=== PATIENT | female | born 1995 | race Caucasian/White ===

== ENCOUNTER 2016-08-14 19:15 | Emergency (ER) | payer OTHER ==
[~2016-08-14 19:15] MED LIST: ALBU17IN INH; AMBI10TA PO; AMBI5TAB PO; AMIT10TA PO; BENA25CA2 PO; GABA300C3 PO; GABA600T PO; HYDR-4274 PO; MINI1CAP PO; NEUR300C PO; PRAZ2CAP PO; PROZ20CA11 PO; ROZE8TAB9 PO; TRAM50TA2 PO; TRI-TAB16 PO; TYLE167L PO; VENL75CA47 PO; VIST25CA PO; VITMTA PO; ZANA4TAB PO
[2016-08-14] MEDS ORDERED: ONDANSETRON 4 MG ORAL DISINTEGRATING TAB (S0181) As Ordered ONE ×2 (22:00→22:04)
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
--- NOTE | 2016-08-14 22:52 | EDDOCDS ---
Physician Documentation [facility] Name: Leticia Polo Age: 20 yrs Sex: Female : 1995 Arrival Date: 08/14/2016 Time: 19:15 Bed 31 Private MD: Srinivas, Family Disposition: 08/14/16 20:14 Discharged to Home/Self Care. Impression: Encounter for issue of repeat prescription, Acute stress reaction. - Condition is Stable. - Discharge Instructions: Medicine Refill at the Emergency Department. - Prescriptions for Effexor XR 75 mg Oral capsule,extended release 24hr - take 3 capsule by ORAL route once daily; 90 capsule. - Medication Reconciliation, Local Pharmacy Hours form. - Follow up: Private Physician; When: Call to arrange an appointment; Reason: Continuance of care. - Problem is an acute exacerbation. - Symptoms have improved. Historical: - Allergies: Haldolmuscle spasms; - Home Meds: 1. Ambien 10 mg Oral tab 1 tab nightly 2. Atarax 25mg Oral 50 mg every 4 hours prn (Last dose: 08/13/2016 20:25) 3. gabapentin 600 mg Oral tab 1 tab 3 times per day (Last dose: 08/14/2016 08:30) 4. clonidine HCl 0.2 mg Oral tab 1 tab once daily (Last dose: 08/13/2016 20:30) 5. tramadol 50 mg Oral tab 1 tab twice a day (Last dose: 08/13/2016 08:00) 6. venlafaxine 225 mg oral tr24 1 tab once daily (Last dose: 08/14/2016 08:30) 7. cyclobenzaprine 10 mg Oral tab 1 tab 3 times per day (Last dose: 08/14/2016 08:00) - PMHx: Anxiety Disorder; Chronic Neck Pain; PTSD; Insomnia; - PSHx: none; - Social history: Smoking status: Patient uses tobacco products, current every day smoker. No barriers to communication noted, The patient speaks fluent Vincentian, Speaks appropriately for age, Preferred Language: Vincentian. - Family history: Not pertinent. - : The pt / caregiver states he / she is not on anticoagulants. Home medication list is obtained from the patient. - Exposure Risk Screening:: None identified. 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 11 in. (149.86 cm) (R); 21:24 BP 150 / 70; Pulse 108; Resp 18; Pulse Ox 99% on R/A; slm 19:17 Body Mass Index 25.25 (56.70 kg, 149.86 cm) dd6 MDM: 20:08 Consult: Automotive Glass Mechanic ordered. mm11 20:15 Vital Signs ordered. mm11 20:51 Consult: Automotive Glass Mechanic complete. [facility] 21:58 Ondansetron ODT Oral Disintegrating Tablet 4 mg PO once ordered. 11 22:17 Financial registration complete. zo Administered Medications: 22:13 Drug: Ondansetron ODT 4 mg [ondansetron 4 mg disintegrating tablet (1 tabs)] Route: PO; [facility] 22:44 Follow up: Response: Nausea is resolved [facility] Signatures: Hung Berkowitz Lisa,RN RN lf1 Adonis Suarez DO DO mm11 Marita Andrade LPN LPN [facility]
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
--- NOTE | 2016-08-16 23:52 | EDDOCDS ---
Physician Documentation [facility] Name: Leticia Polo Age: 20 yrs Sex: Female : 1995 Arrival Date: 08/14/2016 Time: 19:15 Bed 31 Private MD: Srinivas, Family Disposition: 08/14/16 20:14 Discharged to Home/Self Care. Impression: Encounter for issue of repeat prescription, Acute stress reaction. - Condition is Stable. - Discharge Instructions: Medicine Refill at the Emergency Department. - Prescriptions for Effexor XR 75 mg Oral capsule,extended release 24hr - take 3 capsule by ORAL route once daily; 90 capsule. - Medication Reconciliation, Local Pharmacy Hours form. - Follow up: Private Physician; When: Call to arrange an appointment; Reason: Continuance of care. - Problem is an acute exacerbation. - Symptoms have improved. Historical: - Allergies: Haldolmuscle spasms; - Home Meds: 1. Ambien 10 mg Oral tab 1 tab nightly 2. Atarax 25mg Oral 50 mg every 4 hours prn (Last dose: 08/13/2016 20:25) 3. gabapentin 600 mg Oral tab 1 tab 3 times per day (Last dose: 08/14/2016 08:30) 4. clonidine HCl 0.2 mg Oral tab 1 tab once daily (Last dose: 08/13/2016 20:30) 5. tramadol 50 mg Oral tab 1 tab twice a day (Last dose: 08/13/2016 08:00) 6. venlafaxine 225 mg oral tr24 1 tab once daily (Last dose: 08/14/2016 08:30) 7. cyclobenzaprine 10 mg Oral tab 1 tab 3 times per day (Last dose: 08/14/2016 08:00) - PMHx: Anxiety Disorder; Chronic Neck Pain; PTSD; Insomnia; - PSHx: none; - Social history: Smoking status: Patient uses tobacco products, current every day smoker. No barriers to communication noted, The patient speaks fluent Honduran, Speaks appropriately for age, Preferred Language: Honduran. - Family history: Not pertinent. - : The pt / caregiver states he / she is not on anticoagulants. Home medication list is obtained from the patient. - Exposure Risk Screening:: None identified. 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 11 in. (149.86 cm) (R); 21:24 BP 150 / 70; Pulse 108; Resp 18; Pulse Ox 99% on R/A; slm 19:17 Body Mass Index 25.25 (56.70 kg, 149.86 cm) dd6 MDM: 20:08 Consult: Passenger Interline Clerk ordered. mm11 20:15 Vital Signs ordered. mm11 20:51 Consult: Passenger Interline Clerk complete. slm 21:58 Ondansetron ODT Oral Disintegrating Tablet 4 mg PO once ordered. mm11 22:17 Financial registration complete. zo 23:08 [facility] Payment Agreement was scanned into [employer] and attached to record. zo 08/15 03:54 T-Sheet-- Draft Copy was scanned into [employer] and attached to record. hs2 11:31 Other: DRUG UTILIZATION REPORT was scanned into [employer] and attached to record. gb Administered Medications: 08/14 22:13 Drug: Ondansetron ODT 4 mg [ondansetron 4 mg disintegrating tablet (1 tabs)] Route: PO; [facility] 22:44 Follow up: Response: Nausea is resolved [facility] Signatures: Kasey Ray, Reg Reg gb Hung Berkowitz Lisa, RN RN lf1 Adonis Suarez DO DO mm11 Marita Andrade LPN LPN [facility] Jennifer Teague, Reg Reg hs2 The chart was reviewed and I authenticate all verbal orders and agree with the evaluation and treatment provided.Attachments: 23:08 [facility] Payment Agreement zo 08/15 03:54 T-Sheet-- Draft Copy hs2 Chart Complete MTDD
--- NOTE | 2016-08-16 23:52 | EDDOCDS ---
Physician Documentation [facility] Name: Leticia Polo Age: 20 yrs Sex: Female : 1995 Arrival Date: 08/14/2016 Time: 19:15 Bed 31 Private MD: Srinivas, Family Disposition: 08/14/16 20:14 Discharged to Home/Self Care. Impression: Encounter for issue of repeat prescription, Acute stress reaction. - Condition is Stable. - Discharge Instructions: Medicine Refill at the Emergency Department. - Prescriptions for Effexor XR 75 mg Oral capsule,extended release 24hr - take 3 capsule by ORAL route once daily; 90 capsule. - Medication Reconciliation, Local Pharmacy Hours form. - Follow up: Private Physician; When: Call to arrange an appointment; Reason: Continuance of care. - Problem is an acute exacerbation. - Symptoms have improved. Historical: - Allergies: Haldolmuscle spasms; - Home Meds: 1. Ambien 10 mg Oral tab 1 tab nightly 2. Atarax 25mg Oral 50 mg every 4 hours prn (Last dose: 08/13/2016 20:25) 3. gabapentin 600 mg Oral tab 1 tab 3 times per day (Last dose: 08/14/2016 08:30) 4. clonidine HCl 0.2 mg Oral tab 1 tab once daily (Last dose: 08/13/2016 20:30) 5. tramadol 50 mg Oral tab 1 tab twice a day (Last dose: 08/13/2016 08:00) 6. venlafaxine 225 mg oral tr24 1 tab once daily (Last dose: 08/14/2016 08:30) 7. cyclobenzaprine 10 mg Oral tab 1 tab 3 times per day (Last dose: 08/14/2016 08:00) - PMHx: Anxiety Disorder; Chronic Neck Pain; PTSD; Insomnia; - PSHx: none; - Social history: Smoking status: Patient uses tobacco products, current every day smoker. No barriers to communication noted, The patient speaks fluent Canadian, Speaks appropriately for age, Preferred Language: Canadian. - Family history: Not pertinent. - : The pt / caregiver states he / she is not on anticoagulants. Home medication list is obtained from the patient. - Exposure Risk Screening:: None identified. BAKER PIE: 08/14 19:44 0, Living 0, LMP 06/10/2016 lf1 Vital Signs: 19:17 BP 161 / 91; Pulse 146; Resp 18 S; Temp 97.7(O); Pulse Ox 97% on R/A; Weight 56.7 kg / dd6 125 lbs (R); Height 4 ft. 11 in. (149.86 cm) (R); 21:24 BP 150 / 70; Pulse 108; Resp 18; Pulse Ox 99% on R/A; slm 19:17 Body Mass Index 25.25 (56.70 kg, 149.86 cm) dd6 MDM: 20:08 Consult: Doctor Of Podiatry ordered. mm11 20:15 Vital Signs ordered. mm11 20:51 Consult: Doctor Of Podiatry complete. slm 21:58 Ondansetron ODT Oral Disintegrating Tablet 4 mg PO once ordered. mm11 22:17 Financial registration complete. zo 23:08 [facility] Payment Agreement was scanned into [employer] and attached to record. zo 08/15 03:54 T-Sheet-- Draft Copy was scanned into [employer] and attached to record. hs2 11:31 Other: DRUG UTILIZATION REPORT was scanned into [employer] and attached to record. gb Administered Medications: 08/14 22:13 Drug: Ondansetron ODT 4 mg [ondansetron 4 mg disintegrating tablet (1 tabs)] Route: PO; [facility] 22:44 Follow up: Response: Nausea is resolved [facility] Signatures: Kasey Ray, Reg Reg gb Hung Berkowitz Lisa, RN RN lf1 Adonis Suarez DO DO mm11 Marita Andrade LPN LPN [facility] Jennifer Teague, Reg Reg hs2 The chart was reviewed and I authenticate all verbal orders and agree with the evaluation and treatment provided.Attachments: 23:08 [facility] Payment Agreement zo 08/15 03:54 T-Sheet-- Draft Copy hs2 Chart Complete MTDD
== END 2016-08-14 22:50 | disposition home or self-care (01) ==
LOC: M ED 19:15
DX: Z76.0 Encounter for issue of repeat prescription (principal); F43.0 Acute stress reaction; F41.9 Anxiety disorder, unspecified; M54.2 Cervicalgia; F43.10 Post-traumatic stress disorder, unspecified; G47.00 Insomnia, unspecified; F17.210 Nicotine dependence, cigarettes, uncomplicated; Z79.899 Other long term (current) drug therapy; Z88.8 Allergy status to other drugs, medicaments and biological substances

== ENCOUNTER → 2016-09-15 | Outpatient (CLI) | payer OTHER ==
--- NOTE | 2016-09-15 10:33 | REP ---
MRI CERVICAL SPINE WITHOUT CONTRAST: HISTORY: Neck pain. A disc bulge is present at the C5-6 level. There is minimal effacement of the thecal sac without spinal cord compression. The C5 neural foramina are patent. There is no other disc bulge or herniation. The remaining neural foramina are patent. The spinal cord is normal in signal intensity. There is no intradural extramedullary lesion. Normal signal intensity is present in the cervical vertebral bodies. IMPRESSION: Disc bulge at the C5-6 level without spinal cord compression. Signed by Ezio Red MD 09/15/2016 10:50 A
== END ==
LOC: M RAD 08:48
PROVIDERS: ATTEND Family Medicine
DX: M50.222 Other cervical disc displacement at C5-C6 level (principal)

== ENCOUNTER 2016-09-22 16:51 | Emergency (ER) | payer OTHER ==
[~2016-09-22] VITALS: Ht 147.3 cm; Wt 56.7 kg
[2016-09-22 18:38] LABS: BASO % 0.2 % (0.0-1.0); EOS # 0.1 K/mm3 (0.0-0.50); EOS % 0.7 % (0.0-3.0); LARGE UNSTAINED CELL # 0.1 K/mm3 (0.0-0.4); LYMPH # 1.2 K/mm3 (1.5-6.5); LYMPH % 9.1 % (24.0-44.0); MEAN CORPUSCULAR HEMOGLOBIN 29.2 pg (27.0-33.0); MEAN CORPUSCULAR VOLUME 83.4 fl (80.0-96.0); MONO # 0.6 K/mm3 (0.0-0.8); MONO % 4.2 % (0.0-5.0); NEUTROPHILS # 11.2 K/mm3 (1.8-7.7); NEUTROPHILS % 84.8 % (36.0-66.0); PLATELET COUNT, AUTOMATED 245 k/mm3 (150-450); RED CELL DISTRIBUTION WIDTH 12.2 % (11.5-14.5); WHITE BLOOD COUNT 13.2 K/mm3 (4.0-10.0)
[2016-09-22 19:00] LABS: ERYTHROCYTE SEDIMENTATION RATE 10 mm/hr (0-20)
[2016-09-22 19:20] LABS: ALBUMIN 3.9 GM/DL (3.2-5.2); ALBUMIN/GLOBULIN RATIO 1.22 (1.00-1.93); ALKALINE PHOSPHATASE 87 U/L (45-117); ALT/SGPT 17 U/L (12-78); ANION GAP 9 MEQ/L (8-16); AST/SGOT 15 U/L (15-37); BILIRUBIN,DIRECT 0.1 MG/DL (0.0-0.2); BILIRUBIN,TOTAL 0.3 MG/DL (0.2-1.0); BLOOD UREA NITROGEN 7 MG/DL (7-18); CALCIUM LEVEL 8.9 MG/DL (8.5-10.1); CARBON DIOXIDE LEVEL 25 MEQ/L (21-32); CHLORIDE LEVEL 106 MEQ/L (98-107); CREATININE FOR GFR 0.65 MG/DL (0.55-1.02); GLOMERULAR FILTRATION RATE > 60.0 (>60); GLUCOSE, FASTING 98 MG/DL (70-105); POTASSIUM SERUM 3.8 MEQ/L (3.5-5.1); SODIUM LEVEL 140 MEQ/L (136-145); TOTAL PROTEIN 7.1 GM/DL (6.4-8.2)
[2016-09-22 22:34] LABS: AMPHETAMINES LEVEL URINE NEGATIVE (NEGATIVE); BENZODIAZEPINES URINE NEGATIVE (NEGATIVE); COCAINE METABOLITE URINE NEGATIVE (NEGATIVE); CONTROL LINE INT CTR LINE PRESENT; METHADONE URINE NEGATIVE (NEGATIVE); OPIATES URINE NEGATIVE (NEGATIVE); TRICYCLIC ANTIDEPRESS URINE POSITIVE (NEGATIVE)
[2016-09-22] MEDS ORDERED: VENL75TA3 PO (22:45)
[2016-09-22] MEDS ORDERED: CLON0.2T PO (22:48)
[2016-09-22] MEDS ORDERED: TYLE500T78 PO (22:48)
[2016-09-22] MEDS ORDERED: HYDR-4274 PO (22:48)
[2016-09-23] MEDS ORDERED: LORazepam 2 MG/ML VIAL (J2060) As Ordered ONE ×2 (01:10→01:47)
--- NOTE | 2016-09-23 03:10 | REPUSA ---
CLINICAL HISTORY: Evaluate for multiple sclerosis. TECHNIQUE: Fast spin echo T2 and spin echo T1 sequences were obtained in axial and sagittal planes. P lease note that T2 sagittal sequence is motion degraded. The visualized osseous elements are intact with no evidence of fracture or dislocation. The cervical cord is of normal uniform signal intensity without evidence of focal expansion. There is no evidence for tonsillar herniation. Limited views of the posterior fossa reveal no abnormalities. Normal cervic al lordosis is maintained. Multilevel disk dehydration is seen. Mild loss of disk space heights is noted at C4-C5 and C5-C6. At C4-C5, note is made of minimal diffuse disc bulge without significant spinal canal or foraminal st enosis. At C5-C6, note is made of moderate broad-based disc bulge. Posterior osteophyte formation. Mild narro wing of the spinal canal. Mild bilateral neural foramina narrowing. Remaining levels are intact. IMPRESSION: Normal signal of the visualized spinal cord. Spondylosis. Thank you for your kind referral of this patient.
--- NOTE | 2016-09-23 03:20 | REPUSA ---
CLINICAL HISTORY: Suspected multiple sclerosis. TECHNIQUE: Fast spin echo T2 and spin echo T1 sequences were obtained in axial and sagittal planes. FINDINGS: The visualized osseous elements are intact and in normal alignment with no evidence of fracture or di slocation. The marrow signals are within normal limits. The visualized posterior elements are normal and the thoracic curvature is well maintained. The thoracic cord is of uniform signal intensity witho ut evidence of focal expansion. 1.4 cm uncomplicated hemangioma of T8. There is mild multilevel spondylosis. This is demonstrated by disc dehydration. Small anterior osteop hytes are seen. At T1-T2 level, no evidence of significant disk herniation or bulge. Canal and foramina are patent. At T2-T3 level, no evidence of significant disk herniation or bulge. Canal and foramina are patent. At T3-T4 level, no evidence of significant disk herniation or bulge. Canal and foramina are patent. At T4-T5 level, no evidence of significant disk herniation or bulge. Canal and foramina are patent. At T5-T6 level, no evidence of significant disk herniation or bulge. Canal and foramina are patent. At T6-T7 level, no evidence of significant disk herniation or bulge. Canal and foramina are patent. At T7-T8 level, left paracentral broad-based central disc protrusion. Canal and foramina are patent. At T8-T9 level, no evidence of significant disk herniation or bulge. Canal and foramina are patent. At T9-T10 level, no evidence of significant disk herniation or bulge. Canal and foramina are patent. At T10-T11 level, no evidence of significant disk herniation or bulge. Canal and foramina are patent. At T11-T12 level, no evidence of significant disk herniation or bulge. Canal and foramina are patent. IMPRESSION: 1. Mild multilevel spondylosis. 2. Degenerative disc disease more prominent at T7-T8. 3. Normal signal of the spinal cord. Thank you for your kind referral of this patient.
--- NOTE | 2016-09-23 03:30 | REPUSA ---
CLINICAL HISTORY: Suspected multiple sclerosis. TECHNIQUE: Fast spin echo T2 and spin echo T1 sequences were obtained in axial and sagittal planes. FINDINGS: The visualized osseous elements are intact with no evidence of fracture or spondylolisthesis. The mar row signals are within normal limits. There is preservation of normal lordotic curvature. The conus m edullaris and cauda equina are within normal limits. There is evidence of mild multilevel disc dehydration. Evaluation of individual levels reveals the following: At L5-S1, there is no disk herniation or bulge. Canal and neural foramina remain patent. At L4-L5, there is no disk herniation or bulge. Canal and neural foramina remain patent. At L3-L4, there is no disk herniation or bulge. Canal and neural foramina remain patent. At L2-L3, there is no disk herniation or bulge. Canal and neural foramina remain patent. At L1-L2, there is no disk herniation or bulge. Canal and neural foramina remain patent. IMPRESSION: Unremarkable study. Thank you for your kind referral of this patient.
--- NOTE | 2016-09-23 04:23 | EDDOCDS ---
Physician Documentation [facility] Name: Leticia Polo Age: 21 yrs Sex: Female : 1995 Arrival Date: 09/22/2016 Time: 16:51 Bed 13 Private MD: Tushar De M. Disposition: 09/23/16 04:06 Discharged to Home/Self Care. Impression: Conversion disorder with motor symptom or deficit. - Condition is Stable. - Discharge Instructions: Conversion Disorder. - Medication Reconciliation, Local Pharmacy Hours form. - Follow up: Private Physician; When: As previously arranged; Reason: Continuance of care. Follow up: Emergency Department; When: As needed; Reason: Continuance of care. - Problem is an acute exacerbation. - Symptoms are resolved. - Notes: YOUR SYMPTOMS RESOLVED WITHOUT INTERVENTION. YOUR SYMPTOMS AND THE PRESENTATION ARE MOST CONSISTANT WITH A CONVERSION DISORDER. FOLLOW UP WITH YOUR OUTPATIENT PROVIDER PREVIOUSLY ARRANGED ON SUNDAY. Historical: - Allergies: Haldolmuscle spasms; SHELLFISH; - Home Meds: 1. Ambien 10 mg Oral tab 1 tab nightly 2. clonidine HCl 0.2 mg Oral tab 1 tab once daily 3. gabapentin 600 mg Oral tab 1 tab 3 times per day 4. tramadol 50 mg Oral tab 1 tab twice a day 5. venlafaxine 250mg oral tr24 1 tab once daily - PMHx: Anxiety Disorder; Chronic Neck Pain; insomnia; PTSD; - PSHx: none; - Social history: Smoking status: Patient states former smoker of tobacco. No barriers to communication noted, The patient speaks fluent Cymro, Speaks appropriately for age. - Family history: Not pertinent. - : The pt / caregiver states he / she is not on anticoagulants. Home medication list is obtained from the patient. - Exposure Risk Screening:: None identified. 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 10 in. (147.32 cm); Pain 7/10; 19:08 BP 147 / 89 (auto/); js15 19:08 Pulse 108 MON; Pulse Ox 99% ; js15 19:37 Pulse 102 MON; Pulse Ox 100% ; js15 19:38 BP 154 / 82 (auto/); js15 20:08 BP 157 / 82 (auto/); js15 20:08 Pulse 118 MON; Pulse Ox 99% ; js15 20:37 Pulse 118 MON; Pulse Ox 100% ; js15 20:38 BP 167 / 85 (auto/); js15 21:07 Pulse 110 MON; Pulse Ox 100% ; js15 21:08 BP 148 / 86 (auto/); js15 21:38 BP 154 / 91 (auto/); js15 21:38 Pulse 102 MON; Pulse Ox 99% ; js15 22:07 Pulse 98 MON; Pulse Ox 100% ; js15 22:08 BP 152 / 86 (auto/); js15 22:37 Pulse 98 MON; Pulse Ox 98% ; js15 22:38 BP 140 / 78 (auto/); js15 23:07 Pulse 96 MON; Pulse Ox 99% ; js15 23:08 BP 149 / 77 (auto/); 15 09/23 02:35 BP 108 / 56 (auto/); js15 02:35 Pulse 90 MON; Pulse Ox 98% ; js15 03:05 BP 114 / 60 (auto/); js15 03:05 Pulse 96 MON; Pulse Ox 98% ; js15 03:34 Pulse 102 MON; Pulse Ox 98% ; js15 03:35 BP 126 / 66 (auto/); js15 04:06 BP 139 / 86 (auto/); Pulse 120; Resp 20; Temp 98.6(TE); Pulse Ox 100% on R/A; Pain 7/10;js15 09/22 17:10 Body Mass Index 26.12 (56.70 kg, 147.32 cm) kc3 MDM: 09/22 17:42 Financial registration complete. zo 17:44 [facility] Payment Agreement was scanned into [employer] and attached to record. zo 18:11 Bladder Scan please ordered. le 18:11 IV Saline Lock ordered. le 18:11 NS 0.9% 1000 ml IV at bolus once ordered. le 18:11 CBC with Diff Ordered. EDMS 18:11 BMP Ordered. EDMS 18:11 ESR Ordered. EDMS 18:11 CRP Ordered. EDMS 18:19 Consult PFS/PSA/Elevator Service Technician ordered. le 18:20 Drug Eval Toxicology ED Only Ordered. EDMS 19:00 ACETAMINOPHEN LEVEL Ordered. EDMS 19:00 ETHYL ALCOHOL (ETHANOL) Ordered. EDMS 19:00 LIVER PROFILE Ordered. EDMS 19:00 SALICYLATE LEVEL Ordered. EDMS 19:00 THYROID STIMULATING HORMONE Ordered. EDMS 19:18 CBC with Diff Reviewed. le 19:18 ESR Reviewed. le 19:39 ACETAMINOPHEN LEVEL Reviewed. le 19:39 SALICYLATE LEVEL Reviewed. le 19:39 BMP Reviewed. le 19:39 CRP Reviewed. le 19:39 ETHYL ALCOHOL (ETHANOL) Reviewed. le 19:39 LIVER PROFILE Reviewed. le 19:39 THYROID STIMULATING HORMONE Reviewed. le 21:41 MRI Screening Tool - Place on chart, inform RN ordered. le 21:43 Bladder Scan please ordered. le 21:43 Straight cath ordered. le 21:43 -MRI-Brain w/o foll by with Ordered. EDMS 22:12 BED REQUEST+ADM ordered. EDMS 22:42 MRI Screening Tool - Place on chart, inform RN complete. ml3 09/23 01:07 LORazepam 1 mg IVP once ordered. mm11 01:40 MRI Spine,Cervical without con Ordered. EDMS 01:40 MRI Spine, L.S. without con Ordered. EDMS 01:40 MRI Spine,Thoracic without con Ordered. EDMS 01:45 LORazepam 1 mg IVP once ordered. mm11 02:09 Drug Eval Toxicology ED Only Reviewed. mm11 Administered Medications: 09/22 18:25 Drug: NS 0.9% 1000 ml [sodium chloride 0.9 % intravenous solution] Route: IV; Rate: kc3 bolus; Site: left antecubital; 22:00 Follow up: IV Status: Completed infusion; IV Intake: 1000ml js15 09/23 01:18 Drug: LORazepam 1 mg [lorazepam 2 mg/mL injection solution (0.5 mL)] Route: IVP; Site: js15 left antecubital; 01:52 Drug: LORazepam 1 mg [lorazepam 2 mg/mL injection solution (0.5 mL)] Route: IVP; Site: js15 left antecubital; 02:15 Follow up: Response: No Adverse Reaction js15 Signatures: Dispatcher [employer] EDMS Vaishali Avila, Computer Bookkeeper Unit ml3 Hung Berkowitz Matthew, DO DO mm11 Nita Dennis FNP Sabiha Harmon,RN RN js15 Sue Bailey,RN RN kc3 The chart was reviewed and I authenticate all verbal orders and agree with the evaluation and treatment provided.Corrections: (The following items were deleted from the chart) 09/22 19:02 18:20 ACETAMINOPHEN LEVEL+LAB ordered. EDMS EDMS 19:02 18:20 ETHYL ALCOHOL (ETHANOL)+LAB ordered. EDMS EDMS 19:02 18:20 LIVER PROFILE+LAB ordered. EDMS EDMS 19:02 18:20 SALICYLATE LEVEL+LAB ordered. EDMS EDMS 19:02 18:20 THYROID STIMULATING HORMONE+LAB ordered. EDMS EDMS 23:36 21:43 MRI-Spine, Thoracic with con+MR ordered. EDMS EDMS 23:37 21:43 MRI-Spine,Thoracic without con+MR ordered. EDMS EDMS 09/23 01:40 09/22 21:43 MRI-Spine, Cervical w/o foll by with+MR ordered. EDMS EDMS 09/23 01:40 09/22 21:43 MRI-Spine, Lumbar w/o foll by with+MR ordered. EDMS EDMS 09/23 01:40 09/22 23:36 MRI T SPINE W/O FOLL WITH CON ordered. EDMS EDMS Attachments: 17:44 [facility] Payment Agreement zo MTDD
--- NOTE | 2016-09-23 04:24 | EDDOCDS ---
Nurse's Notes [facility] Name: Leticia Polo Age: 21 yrs Sex: Female : 1995 Arrival Date: 09/22/2016 Time: 16:51 Bed 13 Private MD: Tushar De M. Diagnosis: Conversion disorder with motor symptom or deficit Presentation: 09/22 17:07 Presenting complaint: EMS states: pt with loss of sensation and weakness to bilateral kc3 lower legs while at work. Adult Sepsis Screening: The patient does not have new or worsening altered mentation. Patient's respiratory rate is less than 22. Systolic blood pressure is greater than 100. Patient has a qSOFA score of 0- Negative Sepsis Screen. Suicide/Homicide risk assessment- the patient denies having any suicidal and/or homicidal ideations and does not present with any other emotional, behavioral or mental health complaints. Transition of care: patient was not received from another setting of care. 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 kc3 Triage Assessment: 17:13 General: Appears in no apparent distress, comfortable, Behavior is appropriate for age, kc3 cooperative. Pain: Location: neck Pain currently is 7 out of 10 on a pain scale. HIV screening NA for this visit Offered previously. The patient is triaged at the bedside. See Assessment in Nurses Notes section of ED record. 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 Cardiovascular: Chest pain is denied. Respiratory: Airway is patent Respiratory effort is even, unlabored. Derm: Skin is pink, warm & dry. Musculoskeletal: Circulation, motion, and sensation intact. CONCRETE PUDDLER: 17:10 LMP 08/08/2016 kc3 Historical: - Allergies: Haldolmuscle spasms; SHELLFISH; - Home Meds: 1. Ambien 10 mg Oral tab 1 tab nightly 2. clonidine HCl 0.2 mg Oral tab 1 tab once daily 3. gabapentin 600 mg Oral tab 1 tab 3 times per day 4. tramadol 50 mg Oral tab 1 tab twice a day 5. venlafaxine 250mg oral tr24 1 tab once daily - PMHx: Anxiety Disorder; Chronic Neck Pain; insomnia; PTSD; - PSHx: none; - Social history: Smoking status: Patient states former smoker of tobacco. No barriers to communication noted, The patient speaks fluent Samoan, Speaks appropriately for age. - Family history: Not pertinent. - : The pt / caregiver states he / she is not on anticoagulants. Home medication list is obtained from the patient. - Exposure Risk Screening:: None identified. Screenin:15 Screening information is obtained from the patient. Fall risk: At risk due to weakness. kc3 The following interventions are performed due to a positive Fall Risk Screen: Fall Risk is added to Special Handling on the patient Summary Screen. A Fall Risk Bracelet was applied to the patient. Side Rails are placed in the up position. A Call Mcdermott is given with instruction to call for help when getting out of bed. Fall Alert bracelet is placed on the patient. Assistance ADL's: requires no assistance with activities of daily living. Abuse/DV Screen: The patient / caregiver reports he/she is: not in a situation that causes fear, pain or injury. Nutritional screening: No deficits noted. home support is adequate. 09/23 04:19 Advance Directives: There is no active DNR order. js15 Assessment: 09/22 17:15 General: See triage note for initial assessment. . kc3 18:25 General: Appears in no apparent distress, comfortable, Behavior is appropriate for age, kc3 cooperative. Pain: Location: neck. Neurological: Level of Consciousness is awake, alert, obeys commands, Oriented to person, place, time, Numbness in left leg and right leg. Respiratory: Respiratory effort is even, unlabored. Derm: Skin is pink, warm & dry. 19:23 General: Appears in no apparent distress, comfortable, Behavior is appropriate for age, js15 cooperative, flat. Pain: Location: neck Pain currently is 7 out of 10 on a pain scale. Quality of pain is described as stabbing, Aggravated by movement. Neurological: Level of Consciousness is awake, alert, obeys commands, Oriented to person, place, time, Speech is normal, Facial symmetry appears normal, Numbness in left leg and right leg. Respiratory: Airway is patent Respiratory effort is even, unlabored, Respiratory pattern is regular, symmetrical. Derm: Skin is intact, Skin is pink, warm & dry. 20:40 General: Appears in no apparent distress, comfortable, Behavior is appropriate for age, js15 cooperative. Neurological: Level of Consciousness is awake, alert, obeys commands, Oriented to person, place, time. Respiratory: Airway is patent Respiratory effort is even, unlabored, Respiratory pattern is regular, symmetrical. Derm: Skin is pink, warm & dry. 21:50 Reassessment: bladder scan performed to find >567 mL; L Sonny OPERATIONS LEAD notified. js15 22:11 Reassessment: straight cath performed and returned 650 mL of cloudy yellow urine; post js15 residual bladder scan shows 0 mL remaining urine in bladder; L Sonny OPERATIONS LEAD notified; will continue to monitor. 23:25 General: Appears in no apparent distress, comfortable, Behavior is appropriate for age, js15 cooperative. Neurological: Level of Consciousness is awake, alert, obeys commands, Oriented to person, place, time. Respiratory: Airway is patent Respiratory effort is even, unlabored, Respiratory pattern is regular, symmetrical. Derm: Skin is pink, warm & dry. 09/23 00:30 Reassessment: Pt in MRI for imaging study. js15 01:21 General: Pt in MRI, this typewriter assembly and parts inspector called to MRI because pt unable to stay still for image js15 study. Arrived in MRI and pt was laying on table, having intermittent, uncorrelated whole body jerking movements. Pt awake and alert, oriented x3 and responding appropriately. respirations even and unlabored; skin pink, warm, dry. medications given per ED physician order.. 01:30 Reassessment: Called to MRI because pt appears to be having difficulty breathing; upon js15 arrival to MRI this typewriter assembly and parts inspector witnessed pt on stretcher awake with eyes open and blinking, making purposeful movements, appears to be having a panic attack with forced rapid exhaling (states has had panic attack in past); O2 sat 100 % RA outside MRI, HR 115 and sinus, airway patent and breath sounds clear. removed from MRI and brought to main ED, hooked up to cardiac/pulse ox/ NIBP monitoring. Pt was able to correct breathing with coaching from nursing staff. resting on stretcher with mother at bedside. ED provider aware. will continue to monitor. 03:00 Reassessment: Patient appears in no apparent distress at this time. Pt appears to be js15 sleeping, mother at bedside; respirations even and unlabored; skin pink, warm, dry; will continue to monitor. 04:00 General: Appears in no apparent distress, comfortable, Behavior is appropriate for age, js15 cooperative. Pain: Location: neck Pain currently is 7 out of 10 on a pain scale. Neurological: Level of Consciousness is awake, alert, obeys commands, Oriented to person, place, time. Cardiovascular: Rhythm is sinus rhythm. Respiratory: Airway is patent Respiratory effort is even, unlabored, Respiratory pattern is regular, symmetrical. Derm: Skin is pink, warm & dry. Vital Signs: 09/22 17:10 BP 142 / 83; Pulse 76; Resp 18; Temp 99.2(O); Pulse Ox 100% on R/A; Weight 56.7 kg; kc3 Height 4 ft. 10 in. (147.32 cm); Pain 7/10; 19:08 BP 147 / 89 (auto/); js15 19:08 Pulse 108 MON; Pulse Ox 99% ; js15 19:37 Pulse 102 MON; Pulse Ox 100% ; js15 19:38 BP 154 / 82 (auto/); js15 20:08 BP 157 / 82 (auto/); js15 20:08 Pulse 118 MON; Pulse Ox 99% ; js15 20:37 Pulse 118 MON; Pulse Ox 100% ; js15 20:38 BP 167 / 85 (auto/); js15 21:07 Pulse 110 MON; Pulse Ox 100% ; js15 21:08 BP 148 / 86 (auto/); js15 21:38 BP 154 / 91 (auto/); js15 21:38 Pulse 102 MON; Pulse Ox 99% ; js15 22:07 Pulse 98 MON; Pulse Ox 100% ; js15 22:08 BP 152 / 86 (auto/); js15 22:37 Pulse 98 MON; Pulse Ox 98% ; js15 22:38 BP 140 / 78 (auto/); js15 23:07 Pulse 96 MON; Pulse Ox 99% ; js15 23:08 BP 149 / 77 (auto/); 15 09/23 02:35 BP 108 / 56 (auto/); 15 02:35 Pulse 90 MON; Pulse Ox 98% ; 15 03:05 BP 114 / 60 (auto/); js15 03:05 Pulse 96 MON; Pulse Ox 98% ; js15 03:34 Pulse 102 MON; Pulse Ox 98% ; js15 03:35 BP 126 / 66 (auto/); js15 04:06 BP 139 / 86 (auto/); Pulse 120; Resp 20; Temp 98.6(TE); Pulse Ox 100% on R/A; Pain 7/10;js15 09/22 17:10 Body Mass Index 26.12 (56.70 kg, 147.32 cm) kc3 Vitals: 09/22 17:10 Log In Time N/A - ambulance arrival. kc3 ED Course: 16:52 Patient visited by Arminda Joyce, Sandwich Peddler. lbd 16:52 Patient moved to Waiting lbd 16:54 Tushar De is Private Physician. lbd 16:54 Sue Bailey RN is Primary Nurse. lbd 16:54 Patient moved to 13 lbd 17:08 Triage Initiated kc3 17:16 The patient / caregiver is instructed regarding the plan of care and ED course. kc3 17:18 [facility] F[facility] le 17:20 Patient visited by Nita Dennis FNP. le 17:20 Patient visited by Nita Dennis FNP. le 17:44 [facility] Payment Agreement was scanned into [employer] and attached to record. zo 17:45 Patient name changed from Leticia\S\\S\Long\S\ to Leticia\S\ \S\Long. EDMS 18:24 Patient visited by Sue Bailey RN. kc3 18:24 CRP Sent. kc3 18:24 ESR Sent. kc3 18:24 BMP Sent. kc3 18:25 CBC with Diff Sent. kc3 18:26 Inserted saline lock: 20 gauge in left antecubital area and blood collected. The kc3 patient tolerated the procedure well. 18:58 Patient visited by Sue Bailey RN. kc3 19:02 THYROID STIMULATING HORMONE Sent. kc3 19:02 SALICYLATE LEVEL Sent. kc3 19:02 LIVER PROFILE Sent. kc3 19:02 ETHYL ALCOHOL (ETHANOL) Sent. kc3 19:02 ACETAMINOPHEN LEVEL Sent. kc3 20:24 Patient visited by Sabiha Baxter,JONATHAN. js15 21:49 Patient visited by Sabiha Baxter,JONATHAN. js15 22:37 Primary Nurse role handed off by Sue Bailey RN kb5 22:51 Patient visited by Sabiha Baxter RN. js15 23:27 Patient visited by Sabiha Baxter RN. js15 23:35 Patient moved to [facility] ml3 23:57 Adonis Suarez DO is Attending Physician. mm11 23:57 Patient visited by Adonis Suarez DO. mm11 18 01:21 Patient visited by Sabiha Baxter RN. js15 01:58 Patient moved to 13 ml3 02:08 Patient visited by Adonis Suarez DO. mm11 03:19 Patient visited by Sabiha Baxter RN. js15 03:44 MRI Spine,Cervical without con Returned. EDMS 03:44 MRI Spine,Thoracic without con Returned. EDMS 03:44 MRI Spine, L.S. without con Returned. EDMS 04:19 Discontinued IV lock intact, bleeding controlled, pressure dressing applied, No js15 redness/swelling at site. No procedures done that require assistance. Administered Medications: 09/22 18:25 Drug: NS 0.9% 1000 ml [sodium chloride 0.9 % intravenous solution] Route: IV; Rate: kc3 bolus; Site: left antecubital; 22:00 Follow up: IV Status: Completed infusion; IV Intake: 1000ml [facility] 09/23 01:18 Drug: LORazepam 1 mg [lorazepam 2 mg/mL injection solution (0.5 mL)] Route: IVP; Site: [facility] left antecubital; 01:52 Drug: LORazepam 1 mg [lorazepam 2 mg/mL injection solution (0.5 mL)] Route: IVP; Site: [facility] left antecubital; 02:15 Follow up: Response: No Adverse Reaction Intake: 09/22 22:00 IV: 1000.00ml; Total: 1000.00ml. 15 Order Results: Lab Order: CBC with Diff; SPEC'M 09/22/16 18:17 Test: WHITE BLOOD COUNT; Value: 13.2; Range: 4.0-10.0; Abnormal: Above high normal; Units: K/mm3; Status: F Test: RED BLOOD COUNT; Value: 4.95; Range: 4.00-5.40; Units: M/mm3; Status: F Test: HEMOGLOBIN; Value: 14.4; Range: 12.0-16.0; Units: g/dl; Status: F Test: HEMATOCRIT; Value: 41.3; Range: 36.0-47.0; Units: %; Status: F Test: MEAN CORPUSCULAR VOLUME; Value: 83.4; Range: 80.0-96.0; Units: fl; Status: F Test: MEAN CORPUSCULAR HEMOGLOBIN; Value: 29.2; Range: 27.0-33.0; Units: pg; Status: F Test: MEAN CORPUSCULAR HGB CONC; Value: 35.0; Range: 32.0-36.5; Units: g/dl; Status: F Test: RED CELL DISTRIBUTION WIDTH; Value: 12.2; Range: 11.5-14.5; Units: %; Status: F Test: PLATELET COUNT, AUTOMATED; Value: 245; Range: 150-450; Units: k/mm3; Status: F Test: NEUTROPHILS %; Value: 84.8; Range: 36.0-66.0; Abnormal: Above high normal; Units: %; Status: F Test: LYMPH %; Value: 9.1; Range: 24.0-44.0; Abnormal: Below low normal; Units: %; Status: F Test: MONO %; Value: 4.2; Range: 0.0-5.0; Units: %; Status: F Test: EOS %; Value: 0.7; Range: 0.0-3.0; Units: %; Status: F Test: BASO %; Value: 0.2; Range: 0.0-1.0; Units: %; Status: F Test: LARGE UNSTAINED CELL %; Value: 1.0; Range: 0.0-4.0; Units: %; Status: F Test: NEUTROPHILS #; Value: 11.2; Range: 1.8-7.7; Abnormal: Above high normal; Units: K/mm3; Status: F Test: LYMPH #; Value: 1.2; Range: 1.5-6.5; Abnormal: Below low normal; Units: K/mm3; Status: F Test: MONO #; Value: 0.6; Range: 0.0-0.8; Units: K/mm3; Status: F Test: EOS #; Value: 0.1; Range: 0.0-0.50; Units: K/mm3; Status: F Test: BASO #; Value: 0.0; Range: 0.0-0.2; Units: K/mm3; Status: F Test: LARGE UNSTAINED CELL #; Value: 0.1; Range: 0.0-0.4; Units: K/mm3; Status: F Lab Order: BMP; SPEC'M 09/22/16 18:17 Test: GLUCOSE, FASTING; Value: 98; Range: 70-105; Units: MG/DL; Status: F Test: BLOOD UREA NITROGEN; Value: 7; Range: 7-18; Units: MG/DL; Status: F Test: CREATININE FOR GFR; Value: 0.65; Range: 0.55-1.02; Units: MG/DL; Status: F Test: GLOMERULAR FILTRATION RATE; Value: > 60.0; Range: >60; Status: F Test: SODIUM LEVEL; Value: 140; Range: 136-145; Units: MEQ/L; Status: F Test: POTASSIUM SERUM; Value: 3.8; Range: 3.5-5.1; Units: MEQ/L; Status: F Test: CHLORIDE LEVEL; Value: 106; Range: 98-107; Units: MEQ/L; Status: F Test: CARBON DIOXIDE LEVEL; Value: 25; Range: 21-32; Units: MEQ/L; Status: F Test: ANION GAP; Value: 9; Range: 8-16; Units: MEQ/L; Status: F Test: CALCIUM LEVEL; Value: 8.9; Range: 8.5-10.1; Units: MG/DL; Status: F Test Note: ; Units are mL/min/1.73 m2 Chronic Kidney Disease Staging per NKF: Stage I & II GFR >=60 Normal to Mildly Decreased Stage III GFR 30-59 Moderately Decreased Stage IV GFR 15-29 Severely Decreased Stage V GFR <15 Very Little GFR Left ESRD GFR <15 on NURSE SANE Lab Order: ESR; SPEC'M 09/22/16 18:17 Test: ERYTHROCYTE SEDIMENTATION RATE; Value: 10; Range: 0-20; Units: mm/hr; Status: F Lab Order: CRP; SPEC'M 09/22/16 18:17 Test: C REACTIVE PROTEIN QUANTITATIV; Value: < 0.30; Range: 0.00-0.30; Units: MG/DL; Status: F Lab Order: Drug Eval Toxicology ED Only; SPEC'M 09/22/16 22:06 Test: AMPHETAMINES LEVEL URINE; Value: NEGATIVE; Range: NEGATIVE; Status: F Test: BARBITURATES URINE; Value: NEGATIVE; Range: NEGATIVE; Status: F Test: BENZODIAZEPINES URINE; Value: NEGATIVE; Range: NEGATIVE; Status: F Test: CANNABINOIDS URINE; Value: NEGATIVE; Range: NEGATIVE; Status: F Test: COCAINE METABOLITE URINE; Value: NEGATIVE; Range: NEGATIVE; Status: F Test: METHADONE URINE; Value: NEGATIVE; Range: NEGATIVE; Status: F Test: OPIATES URINE; Value: NEGATIVE; Range: NEGATIVE; Status: F Test: TRICYCLIC ANTIDEPRESS URINE; Value: POSITIVE; Range: NEGATIVE; Abnormal: Above high normal; Status: F Test Note: ; ALL PRESUMPTIVE POSITIVE FINDINGS ARE UNCONFIRMED NORMAL VALUES THRESHOLD IN NG/ML AMPHETAMINES 1000 METHAMPHETAMINES 1000 BARBITURATES 300 BENZODIAZEPINES 300 CANNABINOIDS (THC) 50 COCAINE METABOLITE 300 METHADONE 300 OPIATES 300 PHENCYCLIDINE 25 TRICYCLIC ANTIDEPRESSANTS 1000 RESULTS ARE FOR MEDICAL PURPOSES ONLY. ALL URINE SPECIMENS WILL BE SAVED FOR 3 DAYS. IF CONFIRMATION OF A PRESUMPTIVE POSTIVE SCREEN RESULT IS DESIRED, CALL CHEMISTRY ([phone]) AND REQUEST URINE TO BE SENT TO REFERENCE LAB. FOR A LIST OF CLOSELY RELATED COMPOUNDS PLEASE CALL THE LAB. Lab Order: ACETAMINOPHEN LEVEL; SPEC'M 09/22/16 18:17 Test: ACETAMINOPHEN LEVEL; Value: 5.7; Range: 10.0-30.0; Abnormal: Below low normal; Units: UG/ML; Status: F Lab Order: ETHYL ALCOHOL (ETHANOL); SPEC'M 09/22/16 18:17 Test: ETHYL ALCOHOL (ETHANOL); Value: 0.004; Range: 0.000-0.010; Units: %; Status: F Lab Order: LIVER PROFILE; SPEC'M 09/22/16 18:17 Test: AST/SGOT; Value: 15; Range: 15-37; Units: U/L; Status: F Test: ALT/SGPT; Value: 17; Range: 12-78; Units: U/L; Status: F Test: ALKALINE PHOSPHATASE; Value: 87; Range: 45-117; Units: U/L; Status: F Test: BILIRUBIN,TOTAL; Value: 0.3; Range: 0.2-1.0; Units: MG/DL; Status: F Test: BILIRUBIN,DIRECT; Value: 0.1; Range: 0.0-0.2; Units: MG/DL; Status: F Test: TOTAL PROTEIN; Value: 7.1; Range: 6.4-8.2; Units: GM/DL; Status: F Test: ALBUMIN; Value: 3.9; Range: 3.2-5.2; Units: GM/DL; Status: F Test: ALBUMIN/GLOBULIN RATIO; Value: 1.22; Range: 1.00-1.93; Status: F Lab Order: SALICYLATE LEVEL; SPEC'M 09/22/16 18:17 Test: SALICYLATE LEVEL; Value: < 1.7; Range: 5.0-30.0; Abnormal: Below low normal; Units: MG/DL; Status: F Lab Order: THYROID STIMULATING HORMONE; SPEC'M 09/22/16 18:17 Test: THYROID STIMULATING HORMONE; Value: 1.040; Range: 0.358-3.740; Units: uIU/ML; Status: F Radiology Order: MRI Spine,Cervical without con Test: MRI Spine,Cervical without con REASON FOR EXAMINATION: eval for MS; ; CLINICAL HISTORY: Evaluate for multiple sclerosis.; TECHNIQUE: Fast spin echo T2 and spin echo T1 sequences were obtained in axial and sagittal planes. P; lease note that T2 sagittal sequence is motion degraded.; The visualized osseous elements are intact with no evidence of fracture or dislocation. The cervical; cord is of normal uniform signal intensity without evidence of focal expansion. There is no evidence; for tonsillar herniation. Limited views of the posterior fossa reveal no abnormalities. Normal cervic; al lordosis is maintained.; Multilevel disk dehydration is seen. Mild loss of disk space heights is noted at C4-C5 and C5-C6.; At C4-C5, note is made of minimal diffuse disc bulge without significant spinal canal or foraminal st; enosis.; At C5-C6, note is made of moderate broad-based disc bulge. Posterior osteophyte formation. Mild narro; wing of the spinal canal. Mild bilateral neural foramina narrowing.; Remaining levels are intact.; IMPRESSION:; Normal signal of the visualized spinal cord.; Spondylosis.; Thank you for your kind referral of this patient.; ; Radiology Order: MRI Spine, L.S. without con Test: MRI Spine, L.S. without con REASON FOR EXAMINATION: eval for MS; ; CLINICAL HISTORY: Suspected multiple sclerosis.; TECHNIQUE: Fast spin echo T2 and spin echo T1 sequences were obtained in axial and sagittal planes.; FINDINGS:; The visualized osseous elements are intact with no evidence of fracture or spondylolisthesis. The mar; row signals are within normal limits. There is preservation of normal lordotic curvature. The conus m; edullaris and cauda equina are within normal limits.; There is evidence of mild multilevel disc dehydration.; Evaluation of individual levels reveals the following:; At L5-S1, there is no disk herniation or bulge. Canal and neural foramina remain patent.; At L4-L5, there is no disk herniation or bulge. Canal and neural foramina remain patent.; At L3-L4, there is no disk herniation or bulge. Canal and neural foramina remain patent.; At L2-L3, there is no disk herniation or bulge. Canal and neural foramina remain patent.; At L1-L2, there is no disk herniation or bulge. Canal and neural foramina remain patent.; IMPRESSION:; Unremarkable study.; Thank you for your kind referral of this patient.; ; Radiology Order: MRI Spine,Thoracic without con Test: MRI Spine,Thoracic without con REASON FOR EXAMINATION: eval for MS; ; CLINICAL HISTORY: Suspected multiple sclerosis.; TECHNIQUE: Fast spin echo T2 and spin echo T1 sequences were obtained in axial and sagittal planes.; FINDINGS:; The visualized osseous elements are intact and in normal alignment with no evidence of fracture or di; slocation. The marrow signals are within normal limits. The visualized posterior elements are normal; and the thoracic curvature is well maintained. The thoracic cord is of uniform signal intensity witho; ut evidence of focal expansion. 1.4 cm uncomplicated hemangioma of T8.; There is mild multilevel spondylosis. This is demonstrated by disc dehydration. Small anterior osteop; hytes are seen.; At T1-T2 level, no evidence of significant disk herniation or bulge. Canal and foramina are patent.; At T2-T3 level, no evidence of significant disk herniation or bulge. Canal and foramina are patent.; At T3-T4 level, no evidence of significant disk herniation or bulge. Canal and foramina are patent.; At T4-T5 level, no evidence of significant disk herniation or bulge. Canal and foramina are patent.; At T5-T6 level, no evidence of significant disk herniation or bulge. Canal and foramina are patent.; At T6-T7 level, no evidence of significant disk herniation or bulge. Canal and foramina are patent.; At T7-T8 level, left paracentral broad-based central disc protrusion. Canal and foramina are patent.; ; At T8-T9 level, no evidence of significant disk herniation or bulge. Canal and foramina are patent.; At T9-T10 level, no evidence of significant disk herniation or bulge. Canal and foramina are patent.; At T10-T11 level, no evidence of significant disk herniation or bulge. Canal and foramina are patent.; ; At T11-T12 level, no evidence of significant disk herniation or bulge. Canal and foramina are patent.; ; IMPRESSION:; 1. Mild multilevel spondylosis.; 2. Degenerative disc disease more prominent at T7-T8.; 3. Normal signal of the spinal cord.; Thank you for your kind referral of this patient.; ; Outcome: 09/23 04:06 Discharge ordered by Provider. mm11 04:19 Discharge Assessment: Patient awake, alert and oriented x 3. No cognitive and/or js15 functional deficits noted. Patient verbalized understanding of disposition instructions. patient administered narcotics - no. The following High Risk Discharge criteria are identified: None. Discharged to home with parent. Pt stood and walked to wheelchair to be transported out. Condition: improved Condition: pt able to walk upon discharge. Discharge instructions given to patient, parents Instructed on discharge instructions, follow up and referral plans. Demonstrated understanding of instructions, Pt was receptive of discharge instructions/ teaching. MRI Study completed. Property given to mother. 04:22 Patient left the ED. js15 Signatures: Dispatcher [employer] EDMS Arminda Joyce, Sandwich Peddler Unit lbd Austin, Vaishali, Sandwich Peddler Unit ml3 Hung Berkowitz Kristopher, ISIDRO COMPUTER ENGINEERING PROFESSOR [id number] SuarezNitin mullinsew, DO DO mm11 Nita Dennis, OPERATIONS LEAD OPERATIONS LEAD Sabiha Claros,RN RN js15 Sue Bailey,RN RN kc3 Corrections: (The following items were deleted from the chart) 09/22 19:02 18:25 ACETAMINOPHEN LEVEL+LAB sent. kc3 EDMS 19:02 18:25 ETHYL ALCOHOL (ETHANOL)+LAB sent. kc3 EDMS 19:02 18:25 LIVER PROFILE+LAB sent. 3 EDMS 19:02 18:25 SALICYLATE LEVEL+LAB sent. 3 EDMS 19:02 18:25 THYROID STIMULATING HORMONE+LAB sent. 3 EDMS MTDD
--- NOTE | 2016-09-25 05:23 | EDDOCDS ---
Physician Documentation [facility] Name: Leticia Polo Age: 21 yrs Sex: Female : 1995 Arrival Date: 09/22/2016 Time: 16:51 Bed 13 Private MD: Tushar De M. Disposition: 09/23/16 04:06 Discharged to Home/Self Care. Impression: Conversion disorder with motor symptom or deficit. - Condition is Stable. - Discharge Instructions: Conversion Disorder. - Medication Reconciliation, Local Pharmacy Hours form. - Follow up: Private Physician; When: As previously arranged; Reason: Continuance of care. Follow up: Emergency Department; When: As needed; Reason: Continuance of care. - Problem is an acute exacerbation. - Symptoms are resolved. - Notes: YOUR SYMPTOMS RESOLVED WITHOUT INTERVENTION. YOUR SYMPTOMS AND THE PRESENTATION ARE MOST CONSISTANT WITH A CONVERSION DISORDER. FOLLOW UP WITH YOUR OUTPATIENT PROVIDER PREVIOUSLY ARRANGED ON SUNDAY. Historical: - Allergies: Haldolmuscle spasms; SHELLFISH; - Home Meds: 1. Ambien 10 mg Oral tab 1 tab nightly 2. clonidine HCl 0.2 mg Oral tab 1 tab once daily 3. gabapentin 600 mg Oral tab 1 tab 3 times per day 4. tramadol 50 mg Oral tab 1 tab twice a day 5. venlafaxine 250mg oral tr24 1 tab once daily - PMHx: Anxiety Disorder; Chronic Neck Pain; insomnia; PTSD; - PSHx: none; - Social history: Smoking status: Patient states former smoker of tobacco. No barriers to communication noted, The patient speaks fluent Indonesian, Speaks appropriately for age. - Family history: Not pertinent. - : The pt / caregiver states he / she is not on anticoagulants. Home medication list is obtained from the patient. - Exposure Risk Screening:: None identified. RN DOCUMENT IMPROVEMENT: 09/22 17:10 LMP 08/08/2016 kc3 Vital Signs: 17:10 BP 142 / 83; Pulse 76; Resp 18; Temp 99.2(O); Pulse Ox 100% on R/A; Weight 56.7 kg / kc3 125 lbs; Height 4 ft. 10 in. (147.32 cm); Pain 7/10; 19:08 BP 147 / 89 (auto/); js15 19:08 Pulse 108 MON; Pulse Ox 99% ; js15 19:37 Pulse 102 MON; Pulse Ox 100% ; js15 19:38 BP 154 / 82 (auto/); js15 20:08 BP 157 / 82 (auto/); js15 20:08 Pulse 118 MON; Pulse Ox 99% ; js15 20:37 Pulse 118 MON; Pulse Ox 100% ; js15 20:38 BP 167 / 85 (auto/); js15 21:07 Pulse 110 MON; Pulse Ox 100% ; js15 21:08 BP 148 / 86 (auto/); js15 21:38 BP 154 / 91 (auto/); js15 21:38 Pulse 102 MON; Pulse Ox 99% ; js15 22:07 Pulse 98 MON; Pulse Ox 100% ; js15 22:08 BP 152 / 86 (auto/); js15 22:37 Pulse 98 MON; Pulse Ox 98% ; js15 22:38 BP 140 / 78 (auto/); js15 23:07 Pulse 96 MON; Pulse Ox 99% ; js15 23:08 BP 149 / 77 (auto/); 15 09/23 02:35 BP 108 / 56 (auto/); js15 02:35 Pulse 90 MON; Pulse Ox 98% ; js15 03:05 BP 114 / 60 (auto/); js15 03:05 Pulse 96 MON; Pulse Ox 98% ; js15 03:34 Pulse 102 MON; Pulse Ox 98% ; js15 03:35 BP 126 / 66 (auto/); js15 04:06 BP 139 / 86 (auto/); Pulse 120; Resp 20; Temp 98.6(TE); Pulse Ox 100% on R/A; Pain 7/10;js15 09/22 17:10 Body Mass Index 26.12 (56.70 kg, 147.32 cm) kc3 MDM: 09/22 17:42 Financial registration complete. zo 17:44 [facility] Payment Agreement was scanned into [employer] and attached to record. zo 18:11 Bladder Scan please ordered. le 18:11 IV Saline Lock ordered. le 18:11 NS 0.9% 1000 ml IV at bolus once ordered. le 18:11 CBC with Diff Ordered. EDMS 18:11 BMP Ordered. EDMS 18:11 ESR Ordered. EDMS 18:11 CRP Ordered. EDMS 18:19 Consult PFS/PSA/Iron Piler ordered. le 18:20 Drug Eval Toxicology ED Only Ordered. EDMS 19:00 ACETAMINOPHEN LEVEL Ordered. EDMS 19:00 ETHYL ALCOHOL (ETHANOL) Ordered. EDMS 19:00 LIVER PROFILE Ordered. EDMS 19:00 SALICYLATE LEVEL Ordered. EDMS 19:00 THYROID STIMULATING HORMONE Ordered. EDMS 19:18 CBC with Diff Reviewed. le 19:18 ESR Reviewed. le 19:39 ACETAMINOPHEN LEVEL Reviewed. le 19:39 SALICYLATE LEVEL Reviewed. le 19:39 BMP Reviewed. le 19:39 CRP Reviewed. le 19:39 ETHYL ALCOHOL (ETHANOL) Reviewed. le 19:39 LIVER PROFILE Reviewed. le 19:39 THYROID STIMULATING HORMONE Reviewed. le 21:41 MRI Screening Tool - Place on chart, inform RN ordered. le 21:43 Bladder Scan please ordered. le 21:43 Straight cath ordered. le 21:43 -MRI-Brain w/o foll by with Ordered. EDMS 22:12 BED REQUEST+ADM ordered. EDMS 22:42 MRI Screening Tool - Place on chart, inform RN complete. ml3 09/23 01:07 LORazepam 1 mg IVP once ordered. mm11 01:40 MRI Spine,Cervical without con Ordered. EDMS 01:40 MRI Spine, L.S. without con Ordered. EDMS 01:40 MRI Spine,Thoracic without con Ordered. EDMS 01:45 LORazepam 1 mg IVP once ordered. mm11 02:09 Drug Eval Toxicology ED Only Reviewed. mm11 10:40 T-Sheet-- Draft Copy was scanned into [employer] and attached to record. gb Administered Medications: 09/22 18:25 Drug: NS 0.9% 1000 ml [sodium chloride 0.9 % intravenous solution] Route: IV; Rate: kc3 bolus; Site: left antecubital; 22:00 Follow up: IV Status: Completed infusion; IV Intake: 1000ml js15 09/23 01:18 Drug: LORazepam 1 mg [lorazepam 2 mg/mL injection solution (0.5 mL)] Route: IVP; Site: js15 left antecubital; 01:52 Drug: LORazepam 1 mg [lorazepam 2 mg/mL injection solution (0.5 mL)] Route: IVP; Site: js15 left antecubital; 02:15 Follow up: Response: No Adverse Reaction 15 Signatures: Dispatcher [employer] EDMS Kasey Ray, Reg Reg Vaishali Moreno, Trim Technician Unit ml3 Hung Berkowitz Matthew, DO DO mm11 Nita Dennis, FERMENTER WINE FERMENTER WINE Sabiha Claros,RN RN js15 Sue Bailey,RN RN kc3 The chart was reviewed and I authenticate all verbal orders and agree with the evaluation and treatment provided.Corrections: (The following items were deleted from the chart) 09/22 19:02 18:20 ACETAMINOPHEN LEVEL+LAB ordered. EDMS EDMS 19:02 18:20 ETHYL ALCOHOL (ETHANOL)+LAB ordered. EDMS EDMS 19:02 18:20 LIVER PROFILE+LAB ordered. EDMS EDMS 19:02 18:20 SALICYLATE LEVEL+LAB ordered. EDMS EDMS 19:02 18:20 THYROID STIMULATING HORMONE+LAB ordered. EDMS EDMS 23:36 21:43 MRI-Spine, Thoracic with con+MR ordered. EDMS EDMS 23:37 21:43 MRI-Spine,Thoracic without con+MR ordered. EDMS EDMS 09/23 01:40 09/22 21:43 MRI-Spine, Cervical w/o foll by with+MR ordered. EDMS EDMS 09/23 01:40 09/22 21:43 MRI-Spine, Lumbar w/o foll by with+MR ordered. EDMS EDMS 09/23 01:40 09/22 23:36 MRI T SPINE W/O FOLL WITH CON ordered. EDMS EDMS Attachments: 17:44 [facility] Payment Agreement zo 09/23 10:40 T-Sheet-- Draft Copy gb Chart Complete MTDD
--- NOTE | 2016-09-25 05:23 | EDDOCDS ---
Nurse's Notes [facility] Name: Leticia Polo Age: 21 yrs Sex: Female : 1995 Arrival Date: 09/22/2016 Time: 16:51 Bed 13 Private MD: Tushar De M. Diagnosis: Conversion disorder with motor symptom or deficit Presentation: 09/22 17:07 Presenting complaint: EMS states: pt with loss of sensation and weakness to bilateral kc3 lower legs while at work. Adult Sepsis Screening: The patient does not have new or worsening altered mentation. Patient's respiratory rate is less than 22. Systolic blood pressure is greater than 100. Patient has a qSOFA score of 0- Negative Sepsis Screen. Suicide/Homicide risk assessment- the patient denies having any suicidal and/or homicidal ideations and does not present with any other emotional, behavioral or mental health complaints. Transition of care: patient was not received from another setting of care. 17:07 Acuity: SHEMAR Level 3 kc3 17:07 Method Of Arrival: Ambulance 3 18:26 Status: Patient is not a account services manager or dependent. kc3 Triage Assessment: 17:13 General: Appears in no apparent distress, comfortable, Behavior is appropriate for age, kc3 cooperative. Pain: Location: neck Pain currently is 7 out of 10 on a pain scale. HIV screening NA for this visit Offered previously. The patient is triaged at the bedside. See Assessment in Nurses Notes section of ED record. Neurological: Level of Consciousness is awake, alert, obeys commands, Oriented to person, place, time, Psychologist Developmental are equal bilaterally Weakness in bilateral leg(s) Speech is normal, Facial symmetry appears normal, Pupils are PERRLA, Numbness in right leg and left leg. Cardiovascular: Chest pain is denied. Respiratory: Airway is patent Respiratory effort is even, unlabored. Derm: Skin is pink, warm & dry. Musculoskeletal: Circulation, motion, and sensation intact. RADIO SCRIPT WRITER: 17:10 LMP 08/08/2016 kc3 Historical: - Allergies: Haldolmuscle spasms; SHELLFISH; - Home Meds: 1. Ambien 10 mg Oral tab 1 tab nightly 2. clonidine HCl 0.2 mg Oral tab 1 tab once daily 3. gabapentin 600 mg Oral tab 1 tab 3 times per day 4. tramadol 50 mg Oral tab 1 tab twice a day 5. venlafaxine 250mg oral tr24 1 tab once daily - PMHx: Anxiety Disorder; Chronic Neck Pain; insomnia; PTSD; - PSHx: none; - Social history: Smoking status: Patient states former smoker of tobacco. No barriers to communication noted, The patient speaks fluent [place], Speaks appropriately for age. - Family history: Not pertinent. - : The pt / caregiver states he / she is not on anticoagulants. Home medication list is obtained from the patient. - Exposure Risk Screening:: None identified. Screenin:15 Screening information is obtained from the patient. Fall risk: At risk due to weakness. kc3 The following interventions are performed due to a positive Fall Risk Screen: Fall Risk is added to Special Handling on the patient Summary Screen. A Fall Risk Bracelet was applied to the patient. Side Rails are placed in the up position. A Call Mcdermott is given with instruction to call for help when getting out of bed. Fall Alert bracelet is placed on the patient. Assistance ADL's: requires no assistance with activities of daily living. Abuse/DV Screen: The patient / caregiver reports he/she is: not in a situation that causes fear, pain or injury. Nutritional screening: No deficits noted. home support is adequate. 09/23 04:19 Advance Directives: There is no active DNR order. js15 Assessment: 09/22 17:15 General: See triage note for initial assessment. . kc3 18:25 General: Appears in no apparent distress, comfortable, Behavior is appropriate for age, kc3 cooperative. Pain: Location: neck. Neurological: Level of Consciousness is awake, alert, obeys commands, Oriented to person, place, time, Numbness in left leg and right leg. Respiratory: Respiratory effort is even, unlabored. Derm: Skin is pink, warm & dry. 19:23 General: Appears in no apparent distress, comfortable, Behavior is appropriate for age, js15 cooperative, flat. Pain: Location: neck Pain currently is 7 out of 10 on a pain scale. Quality of pain is described as stabbing, Aggravated by movement. Neurological: Level of Consciousness is awake, alert, obeys commands, Oriented to person, place, time, Speech is normal, Facial symmetry appears normal, Numbness in left leg and right leg. Respiratory: Airway is patent Respiratory effort is even, unlabored, Respiratory pattern is regular, symmetrical. Derm: Skin is intact, Skin is pink, warm & dry. 20:40 General: Appears in no apparent distress, comfortable, Behavior is appropriate for age, js15 cooperative. Neurological: Level of Consciousness is awake, alert, obeys commands, Oriented to person, place, time. Respiratory: Airway is patent Respiratory effort is even, unlabored, Respiratory pattern is regular, symmetrical. Derm: Skin is pink, warm & dry. 21:50 Reassessment: bladder scan performed to find >567 mL; L Sonny MECHANICAL DESIGNER notified. js15 22:11 Reassessment: straight cath performed and returned 650 mL of cloudy yellow urine; post js15 residual bladder scan shows 0 mL remaining urine in bladder; L Sonny MECHANICAL DESIGNER notified; will continue to monitor. 23:25 General: Appears in no apparent distress, comfortable, Behavior is appropriate for age, js15 cooperative. Neurological: Level of Consciousness is awake, alert, obeys commands, Oriented to person, place, time. Respiratory: Airway is patent Respiratory effort is even, unlabored, Respiratory pattern is regular, symmetrical. Derm: Skin is pink, warm & dry. 09/23 00:30 Reassessment: Pt in MRI for imaging study. js15 01:21 General: Pt in MRI, this radio script writer called to MRI because pt unable to stay still for image js15 study. Arrived in MRI and pt was laying on table, having intermittent, uncorrelated whole body jerking movements. Pt awake and alert, oriented x3 and responding appropriately. respirations even and unlabored; skin pink, warm, dry. medications given per ED physician order.. 01:30 Reassessment: Called to MRI because pt appears to be having difficulty breathing; upon js15 arrival to MRI this radio script writer witnessed pt on stretcher awake with eyes open and blinking, making purposeful movements, appears to be having a panic attack with forced rapid exhaling (states has had panic attack in past); O2 sat 100 % RA outside MRI, HR 115 and sinus, airway patent and breath sounds clear. removed from MRI and brought to main ED, hooked up to cardiac/pulse ox/ NIBP monitoring. Pt was able to correct breathing with coaching from nursing staff. resting on stretcher with mother at bedside. ED provider aware. will continue to monitor. 03:00 Reassessment: Patient appears in no apparent distress at this time. Pt appears to be js15 sleeping, mother at bedside; respirations even and unlabored; skin pink, warm, dry; will continue to monitor. 04:00 General: Appears in no apparent distress, comfortable, Behavior is appropriate for age, js15 cooperative. Pain: Location: neck Pain currently is 7 out of 10 on a pain scale. Neurological: Level of Consciousness is awake, alert, obeys commands, Oriented to person, place, time. Cardiovascular: Rhythm is sinus rhythm. Respiratory: Airway is patent Respiratory effort is even, unlabored, Respiratory pattern is regular, symmetrical. Derm: Skin is pink, warm & dry. Vital Signs: 09/22 17:10 BP 142 / 83; Pulse 76; Resp 18; Temp 99.2(O); Pulse Ox 100% on R/A; Weight 56.7 kg; kc3 Height 4 ft. 10 in. (147.32 cm); Pain 7/10; 19:08 BP 147 / 89 (auto/); js15 19:08 Pulse 108 MON; Pulse Ox 99% ; js15 19:37 Pulse 102 MON; Pulse Ox 100% ; js15 19:38 BP 154 / 82 (auto/); js15 20:08 BP 157 / 82 (auto/); js15 20:08 Pulse 118 MON; Pulse Ox 99% ; js15 20:37 Pulse 118 MON; Pulse Ox 100% ; js15 20:38 BP 167 / 85 (auto/); js15 21:07 Pulse 110 MON; Pulse Ox 100% ; js15 21:08 BP 148 / 86 (auto/); js15 21:38 BP 154 / 91 (auto/); js15 21:38 Pulse 102 MON; Pulse Ox 99% ; js15 22:07 Pulse 98 MON; Pulse Ox 100% ; js15 22:08 BP 152 / 86 (auto/); js15 22:37 Pulse 98 MON; Pulse Ox 98% ; js15 22:38 BP 140 / 78 (auto/); js15 23:07 Pulse 96 MON; Pulse Ox 99% ; js15 23:08 BP 149 / 77 (auto/); 15 09/23 02:35 BP 108 / 56 (auto/); 15 02:35 Pulse 90 MON; Pulse Ox 98% ; 15 03:05 BP 114 / 60 (auto/); js15 03:05 Pulse 96 MON; Pulse Ox 98% ; js15 03:34 Pulse 102 MON; Pulse Ox 98% ; js15 03:35 BP 126 / 66 (auto/); js15 04:06 BP 139 / 86 (auto/); Pulse 120; Resp 20; Temp 98.6(TE); Pulse Ox 100% on R/A; Pain 7/10;js15 09/22 17:10 Body Mass Index 26.12 (56.70 kg, 147.32 cm) kc3 Vitals: 09/22 17:10 Log In Time N/A - ambulance arrival. kc3 ED Course: 16:52 Patient visited by Arminda Jocye, Roadmaster. lbd 16:52 Patient moved to Waiting lbd 16:54 Tushar De is Private Physician. lbd 16:54 Sue Bailey RN is Primary Nurse. lbd 16:54 Patient moved to 13 lbd 17:08 Triage Initiated kc3 17:16 The patient / caregiver is instructed regarding the plan of care and ED course. kc3 17:18 [facility] le 17:20 Patient visited by Nita Dennis FNP. le 17:20 Patient visited by Nita Dennis FNP. le 17:44 [facility] Payment Agreement was scanned into Epocrates and attached to record. zo 17:45 Patient name changed from Leticia\S\\S\Long\S\ to Leticia\S\ \S\Long. EDMS 18:24 Patient visited by Sue Bailey RN. kc3 18:24 CRP Sent. kc3 18:24 ESR Sent. kc3 18:24 BMP Sent. kc3 18:25 CBC with Diff Sent. kc3 18:26 Inserted saline lock: 20 gauge in left antecubital area and blood collected. The kc3 patient tolerated the procedure well. 18:58 Patient visited by Sue Bailey RN. kc3 19:02 THYROID STIMULATING HORMONE Sent. kc3 19:02 SALICYLATE LEVEL Sent. kc3 19:02 LIVER PROFILE Sent. kc3 19:02 ETHYL ALCOHOL (ETHANOL) Sent. kc3 19:02 ACETAMINOPHEN LEVEL Sent. kc3 20:24 Patient visited by Sabiha Baxter,JONATHAN. js15 21:49 Patient visited by Sabiha Baxter,JONATHAN. js15 22:37 Primary Nurse role handed off by Sue Bailey RN kb5 22:51 Patient visited by Sabiha Baxter RN. js15 23:27 Patient visited by Sabiha Baxter RN. js15 23:35 Patient moved to [facility] ml3 23:57 Adonis Suarez DO is Attending Physician. mm11 23:57 Patient visited by Adonis Suarez DO. mm11 18 01:21 Patient visited by Sabiha Baxter RN. js15 01:58 Patient moved to 13 ml3 02:08 Patient visited by Adonis Suarez DO. mm11 03:19 Patient visited by Sabiha Baxter RN. js15 03:44 MRI Spine,Cervical without con Returned. EDMS 03:44 MRI Spine,Thoracic without con Returned. EDMS 03:44 MRI Spine, L.S. without con Returned. EDMS 04:19 Discontinued IV lock intact, bleeding controlled, pressure dressing applied, No js15 redness/swelling at site. No procedures done that require assistance. 10:40 T-Sheet-- Draft Copy was scanned into Epocrates and attached to record. gb Administered Medications: 09/22 18:25 Drug: NS 0.9% 1000 ml [sodium chloride 0.9 % intravenous solution] Route: IV; Rate: kc3 bolus; Site: left antecubital; 22:00 Follow up: IV Status: Completed infusion; IV Intake: 1000ml 09/23 01:18 Drug: LORazepam 1 mg [lorazepam 2 mg/mL injection solution (0.5 mL)] Route: IVP; Site: [facility] left antecubital; 01:52 Drug: LORazepam 1 mg [lorazepam 2 mg/mL injection solution (0.5 mL)] Route: IVP; Site: [facility] left antecubital; 02:15 Follow up: Response: No Adverse Reaction 15 Intake: 09/22 22:00 IV: 1000.00ml; Total: 1000.00ml. js15 Order Results: Lab Order: CBC with Diff; SPEC'M 09/22/16 18:17 Test: WHITE BLOOD COUNT; Value: 13.2; Range: 4.0-10.0; Abnormal: Above high normal; Units: K/mm3; Status: F Test: RED BLOOD COUNT; Value: 4.95; Range: 4.00-5.40; Units: M/mm3; Status: F Test: HEMOGLOBIN; Value: 14.4; Range: 12.0-16.0; Units: g/dl; Status: F Test: HEMATOCRIT; Value: 41.3; Range: 36.0-47.0; Units: %; Status: F Test: MEAN CORPUSCULAR VOLUME; Value: 83.4; Range: 80.0-96.0; Units: fl; Status: F Test: MEAN CORPUSCULAR HEMOGLOBIN; Value: 29.2; Range: 27.0-33.0; Units: pg; Status: F Test: MEAN CORPUSCULAR HGB CONC; Value: 35.0; Range: 32.0-36.5; Units: g/dl; Status: F Test: RED CELL DISTRIBUTION WIDTH; Value: 12.2; Range: 11.5-14.5; Units: %; Status: F Test: PLATELET COUNT, AUTOMATED; Value: 245; Range: 150-450; Units: k/mm3; Status: F Test: NEUTROPHILS %; Value: 84.8; Range: 36.0-66.0; Abnormal: Above high normal; Units: %; Status: F Test: LYMPH %; Value: 9.1; Range: 24.0-44.0; Abnormal: Below low normal; Units: %; Status: F Test: MONO %; Value: 4.2; Range: 0.0-5.0; Units: %; Status: F Test: EOS %; Value: 0.7; Range: 0.0-3.0; Units: %; Status: F Test: BASO %; Value: 0.2; Range: 0.0-1.0; Units: %; Status: F Test: LARGE UNSTAINED CELL %; Value: 1.0; Range: 0.0-4.0; Units: %; Status: F Test: NEUTROPHILS #; Value: 11.2; Range: 1.8-7.7; Abnormal: Above high normal; Units: K/mm3; Status: F Test: LYMPH #; Value: 1.2; Range: 1.5-6.5; Abnormal: Below low normal; Units: K/mm3; Status: F Test: MONO #; Value: 0.6; Range: 0.0-0.8; Units: K/mm3; Status: F Test: EOS #; Value: 0.1; Range: 0.0-0.50; Units: K/mm3; Status: F Test: BASO #; Value: 0.0; Range: 0.0-0.2; Units: K/mm3; Status: F Test: LARGE UNSTAINED CELL #; Value: 0.1; Range: 0.0-0.4; Units: K/mm3; Status: F Lab Order: BMP; SPEC'M 09/22/16 18:17 Test: GLUCOSE, FASTING; Value: 98; Range: 70-105; Units: MG/DL; Status: F Test: BLOOD UREA NITROGEN; Value: 7; Range: 7-18; Units: MG/DL; Status: F Test: CREATININE FOR GFR; Value: 0.65; Range: 0.55-1.02; Units: MG/DL; Status: F Test: GLOMERULAR FILTRATION RATE; Value: > 60.0; Range: >60; Status: F Test: SODIUM LEVEL; Value: 140; Range: 136-145; Units: MEQ/L; Status: F Test: POTASSIUM SERUM; Value: 3.8; Range: 3.5-5.1; Units: MEQ/L; Status: F Test: CHLORIDE LEVEL; Value: 106; Range: 98-107; Units: MEQ/L; Status: F Test: CARBON DIOXIDE LEVEL; Value: 25; Range: 21-32; Units: MEQ/L; Status: F Test: ANION GAP; Value: 9; Range: 8-16; Units: MEQ/L; Status: F Test: CALCIUM LEVEL; Value: 8.9; Range: 8.5-10.1; Units: MG/DL; Status: F Test Note: ; Units are mL/min/1.73 m2 Chronic Kidney Disease Staging per NKF: Stage I & II GFR >=60 Normal to Mildly Decreased Stage III GFR 30-59 Moderately Decreased Stage IV GFR 15-29 Severely Decreased Stage V GFR <15 Very Little GFR Left ESRD GFR <15 on CABLE STRETCHER AND TESTER Lab Order: ESR; SPEC'M 09/22/16 18:17 Test: ERYTHROCYTE SEDIMENTATION RATE; Value: 10; Range: 0-20; Units: mm/hr; Status: F Lab Order: CRP; SPEC'M 09/22/16 18:17 Test: C REACTIVE PROTEIN QUANTITATIV; Value: < 0.30; Range: 0.00-0.30; Units: MG/DL; Status: F Lab Order: Drug Eval Toxicology ED Only; SPEC'M 09/22/16 22:06 Test: AMPHETAMINES LEVEL URINE; Value: NEGATIVE; Range: NEGATIVE; Status: F Test: BARBITURATES URINE; Value: NEGATIVE; Range: NEGATIVE; Status: F Test: BENZODIAZEPINES URINE; Value: NEGATIVE; Range: NEGATIVE; Status: F Test: CANNABINOIDS URINE; Value: NEGATIVE; Range: NEGATIVE; Status: F Test: COCAINE METABOLITE URINE; Value: NEGATIVE; Range: NEGATIVE; Status: F Test: METHADONE URINE; Value: NEGATIVE; Range: NEGATIVE; Status: F Test: OPIATES URINE; Value: NEGATIVE; Range: NEGATIVE; Status: F Test: TRICYCLIC ANTIDEPRESS URINE; Value: POSITIVE; Range: NEGATIVE; Abnormal: Above high normal; Status: F Test Note: ; ALL PRESUMPTIVE POSITIVE FINDINGS ARE UNCONFIRMED NORMAL VALUES THRESHOLD IN NG/ML AMPHETAMINES 1000 METHAMPHETAMINES 1000 BARBITURATES 300 BENZODIAZEPINES 300 CANNABINOIDS (THC) 50 COCAINE METABOLITE 300 METHADONE 300 OPIATES 300 PHENCYCLIDINE 25 TRICYCLIC ANTIDEPRESSANTS 1000 RESULTS ARE FOR MEDICAL PURPOSES ONLY. ALL URINE SPECIMENS WILL BE SAVED FOR 3 DAYS. IF CONFIRMATION OF A PRESUMPTIVE POSTIVE SCREEN RESULT IS DESIRED, CALL CHEMISTRY ([phone]) AND REQUEST URINE TO BE SENT TO REFERENCE LAB. FOR A LIST OF CLOSELY RELATED COMPOUNDS PLEASE CALL THE LAB. Lab Order: ACETAMINOPHEN LEVEL; SPEC'M 09/22/16 18:17 Test: ACETAMINOPHEN LEVEL; Value: 5.7; Range: 10.0-30.0; Abnormal: Below low normal; Units: UG/ML; Status: F Lab Order: ETHYL ALCOHOL (ETHANOL); SPEC'M 09/22/16 18:17 Test: ETHYL ALCOHOL (ETHANOL); Value: 0.004; Range: 0.000-0.010; Units: %; Status: F Lab Order: LIVER PROFILE; SPEC'M 09/22/16 18:17 Test: AST/SGOT; Value: 15; Range: 15-37; Units: U/L; Status: F Test: ALT/SGPT; Value: 17; Range: 12-78; Units: U/L; Status: F Test: ALKALINE PHOSPHATASE; Value: 87; Range: 45-117; Units: U/L; Status: F Test: BILIRUBIN,TOTAL; Value: 0.3; Range: 0.2-1.0; Units: MG/DL; Status: F Test: BILIRUBIN,DIRECT; Value: 0.1; Range: 0.0-0.2; Units: MG/DL; Status: F Test: TOTAL PROTEIN; Value: 7.1; Range: 6.4-8.2; Units: GM/DL; Status: F Test: ALBUMIN; Value: 3.9; Range: 3.2-5.2; Units: GM/DL; Status: F Test: ALBUMIN/GLOBULIN RATIO; Value: 1.22; Range: 1.00-1.93; Status: F Lab Order: SALICYLATE LEVEL; SPEC'M 09/22/16 18:17 Test: SALICYLATE LEVEL; Value: < 1.7; Range: 5.0-30.0; Abnormal: Below low normal; Units: MG/DL; Status: F Lab Order: THYROID STIMULATING HORMONE; SPEC'M 09/22/16 18:17 Test: THYROID STIMULATING HORMONE; Value: 1.040; Range: 0.358-3.740; Units: uIU/ML; Status: F Radiology Order: MRI Spine,Cervical without con Test: MRI Spine,Cervical without con REASON FOR EXAMINATION: eval for MS; ; CLINICAL HISTORY: Evaluate for multiple sclerosis.; TECHNIQUE: Fast spin echo T2 and spin echo T1 sequences were obtained in axial and sagittal planes. P; lease note that T2 sagittal sequence is motion degraded.; The visualized osseous elements are intact with no evidence of fracture or dislocation. The cervical; cord is of normal uniform signal intensity without evidence of focal expansion. There is no evidence; for tonsillar herniation. Limited views of the posterior fossa reveal no abnormalities. Normal cervic; al lordosis is maintained.; Multilevel disk dehydration is seen. Mild loss of disk space heights is noted at C4-C5 and C5-C6.; At C4-C5, note is made of minimal diffuse disc bulge without significant spinal canal or foraminal st; enosis.; At C5-C6, note is made of moderate broad-based disc bulge. Posterior osteophyte formation. Mild narro; wing of the spinal canal. Mild bilateral neural foramina narrowing.; Remaining levels are intact.; IMPRESSION:; Normal signal of the visualized spinal cord.; Spondylosis.; Thank you for your kind referral of this patient.; ; Radiology Order: MRI Spine, L.S. without con Test: MRI Spine, L.S. without con REASON FOR EXAMINATION: eval for MS; ; CLINICAL HISTORY: Suspected multiple sclerosis.; TECHNIQUE: Fast spin echo T2 and spin echo T1 sequences were obtained in axial and sagittal planes.; FINDINGS:; The visualized osseous elements are intact with no evidence of fracture or spondylolisthesis. The mar; row signals are within normal limits. There is preservation of normal lordotic curvature. The conus m; edullaris and cauda equina are within normal limits.; There is evidence of mild multilevel disc dehydration.; Evaluation of individual levels reveals the following:; At L5-S1, there is no disk herniation or bulge. Canal and neural foramina remain patent.; At L4-L5, there is no disk herniation or bulge. Canal and neural foramina remain patent.; At L3-L4, there is no disk herniation or bulge. Canal and neural foramina remain patent.; At L2-L3, there is no disk herniation or bulge. Canal and neural foramina remain patent.; At L1-L2, there is no disk herniation or bulge. Canal and neural foramina remain patent.; IMPRESSION:; Unremarkable study.; Thank you for your kind referral of this patient.; ; Radiology Order: MRI Spine,Thoracic without con Test: MRI Spine,Thoracic without con REASON FOR EXAMINATION: eval for MS; ; CLINICAL HISTORY: Suspected multiple sclerosis.; TECHNIQUE: Fast spin echo T2 and spin echo T1 sequences were obtained in axial and sagittal planes.; FINDINGS:; The visualized osseous elements are intact and in normal alignment with no evidence of fracture or di; slocation. The marrow signals are within normal limits. The visualized posterior elements are normal; and the thoracic curvature is well maintained. The thoracic cord is of uniform signal intensity witho; ut evidence of focal expansion. 1.4 cm uncomplicated hemangioma of T8.; There is mild multilevel spondylosis. This is demonstrated by disc dehydration. Small anterior osteop; hytes are seen.; At T1-T2 level, no evidence of significant disk herniation or bulge. Canal and foramina are patent.; At T2-T3 level, no evidence of significant disk herniation or bulge. Canal and foramina are patent.; At T3-T4 level, no evidence of significant disk herniation or bulge. Canal and foramina are patent.; At T4-T5 level, no evidence of significant disk herniation or bulge. Canal and foramina are patent.; At T5-T6 level, no evidence of significant disk herniation or bulge. Canal and foramina are patent.; At T6-T7 level, no evidence of significant disk herniation or bulge. Canal and foramina are patent.; At T7-T8 level, left paracentral broad-based central disc protrusion. Canal and foramina are patent.; ; At T8-T9 level, no evidence of significant disk herniation or bulge. Canal and foramina are patent.; At T9-T10 level, no evidence of significant disk herniation or bulge. Canal and foramina are patent.; At T10-T11 level, no evidence of significant disk herniation or bulge. Canal and foramina are patent.; ; At T11-T12 level, no evidence of significant disk herniation or bulge. Canal and foramina are patent.; ; IMPRESSION:; 1. Mild multilevel spondylosis.; 2. Degenerative disc disease more prominent at T7-T8.; 3. Normal signal of the spinal cord.; Thank you for your kind referral of this patient.; ; Outcome: 09/23 04:06 Discharge ordered by Provider. mm11 04:19 Discharge Assessment: Patient awake, alert and oriented x 3. No cognitive and/or js15 functional deficits noted. Patient verbalized understanding of disposition instructions. patient administered narcotics - no. The following High Risk Discharge criteria are identified: None. Discharged to home with parent. Pt stood and walked to wheelchair to be transported out. Condition: improved Condition: pt able to walk upon discharge. Discharge instructions given to patient, parents Instructed on discharge instructions, follow up and referral plans. Demonstrated understanding of instructions, Pt was receptive of discharge instructions/ teaching. MRI Study completed. Property given to mother. 04:22 Patient left the ED. js15 Signatures: Dispatcher [employer] EDMS Arminda Joyce, Roadmaster Unit lbd Kasey Ray, Reg Reg gb Austin, Vaishali, Roadmaster Unit ml3 Woo, Hung zo Darryn, Charles, CONCRETE SWIMMING POOL INSTALLER CONCRETE SWIMMING POOL INSTALLER kb5 Adonis Suarez, DO DO mm11 Nita Dennis, MECHANICAL DESIGNER MECHANICAL DESIGNER Sabiha Claros,RN RN js15 Sue Bailey,RN RN kc3 Corrections: (The following items were deleted from the chart) 09/22 19:02 18:25 ACETAMINOPHEN LEVEL+LAB sent. kc3 EDMS 19:02 18:25 ETHYL ALCOHOL (ETHANOL)+LAB sent. 3 EDMS 19:02 18:25 LIVER PROFILE+LAB sent. 3 EDMS 19:02 18:25 SALICYLATE LEVEL+LAB sent. 3 EDMS 19:02 18:25 THYROID STIMULATING HORMONE+LAB sent. 3 EDMS [facility]
--- NOTE | 2016-09-25 05:23 | EDDOCDS ---
Physician Documentation [facility] Name: Leticia Polo Age: 21 yrs Sex: Female : 1995 Arrival Date: 09/22/2016 Time: 16:51 Bed 13 Private MD: Tushar De M. Disposition: 09/23/16 04:06 Discharged to Home/Self Care. Impression: Conversion disorder with motor symptom or deficit. - Condition is Stable. - Discharge Instructions: Conversion Disorder. - Medication Reconciliation, Local Pharmacy Hours form. - Follow up: Private Physician; When: As previously arranged; Reason: Continuance of care. Follow up: Emergency Department; When: As needed; Reason: Continuance of care. - Problem is an acute exacerbation. - Symptoms are resolved. - Notes: YOUR SYMPTOMS RESOLVED WITHOUT INTERVENTION. YOUR SYMPTOMS AND THE PRESENTATION ARE MOST CONSISTANT WITH A CONVERSION DISORDER. FOLLOW UP WITH YOUR OUTPATIENT PROVIDER PREVIOUSLY ARRANGED ON SUNDAY. Historical: - Allergies: Haldolmuscle spasms; SHELLFISH; - Home Meds: 1. Ambien 10 mg Oral tab 1 tab nightly 2. clonidine HCl 0.2 mg Oral tab 1 tab once daily 3. gabapentin 600 mg Oral tab 1 tab 3 times per day 4. tramadol 50 mg Oral tab 1 tab twice a day 5. venlafaxine 250mg oral tr24 1 tab once daily - PMHx: Anxiety Disorder; Chronic Neck Pain; insomnia; PTSD; - PSHx: none; - Social history: Smoking status: Patient states former smoker of tobacco. No barriers to communication noted, The patient speaks fluent [place], Speaks appropriately for age. - Family history: Not pertinent. - : The pt / caregiver states he / she is not on anticoagulants. Home medication list is obtained from the patient. - Exposure Risk Screening:: None identified. 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 10 in. (147.32 cm); Pain 7/10; 19:08 BP 147 / 89 (auto/); js15 19:08 Pulse 108 MON; Pulse Ox 99% ; js15 19:37 Pulse 102 MON; Pulse Ox 100% ; js15 19:38 BP 154 / 82 (auto/); js15 20:08 BP 157 / 82 (auto/); js15 20:08 Pulse 118 MON; Pulse Ox 99% ; js15 20:37 Pulse 118 MON; Pulse Ox 100% ; js15 20:38 BP 167 / 85 (auto/); js15 21:07 Pulse 110 MON; Pulse Ox 100% ; js15 21:08 BP 148 / 86 (auto/); js15 21:38 BP 154 / 91 (auto/); js15 21:38 Pulse 102 MON; Pulse Ox 99% ; js15 22:07 Pulse 98 MON; Pulse Ox 100% ; js15 22:08 BP 152 / 86 (auto/); js15 22:37 Pulse 98 MON; Pulse Ox 98% ; js15 22:38 BP 140 / 78 (auto/); js15 23:07 Pulse 96 MON; Pulse Ox 99% ; js15 23:08 BP 149 / 77 (auto/); 15 09/23 02:35 BP 108 / 56 (auto/); js15 02:35 Pulse 90 MON; Pulse Ox 98% ; js15 03:05 BP 114 / 60 (auto/); js15 03:05 Pulse 96 MON; Pulse Ox 98% ; js15 03:34 Pulse 102 MON; Pulse Ox 98% ; js15 03:35 BP 126 / 66 (auto/); js15 04:06 BP 139 / 86 (auto/); Pulse 120; Resp 20; Temp 98.6(TE); Pulse Ox 100% on R/A; Pain 7/10;js15 09/22 17:10 Body Mass Index 26.12 (56.70 kg, 147.32 cm) kc3 MDM: 09/22 17:42 Financial registration complete. zo 17:44 [facility] [place] was scanned into [employer] and attached to record. zo 18:11 Bladder Scan please ordered. le 18:11 IV Saline Lock ordered. le 18:11 NS 0.9% 1000 ml IV at bolus once ordered. le 18:11 CBC with Diff Ordered. EDMS 18:11 BMP Ordered. EDMS 18:11 ESR Ordered. EDMS 18:11 CRP Ordered. EDMS 18:19 Consult PFS/PSA/Laborer Concrete Plant ordered. le 18:20 Drug Eval Toxicology ED Only Ordered. EDMS 19:00 ACETAMINOPHEN LEVEL Ordered. EDMS 19:00 ETHYL ALCOHOL (ETHANOL) Ordered. EDMS 19:00 LIVER PROFILE Ordered. EDMS 19:00 SALICYLATE LEVEL Ordered. EDMS 19:00 THYROID STIMULATING HORMONE Ordered. EDMS 19:18 CBC with Diff Reviewed. le 19:18 ESR Reviewed. le 19:39 ACETAMINOPHEN LEVEL Reviewed. le 19:39 SALICYLATE LEVEL Reviewed. le 19:39 BMP Reviewed. le 19:39 CRP Reviewed. le 19:39 ETHYL ALCOHOL (ETHANOL) Reviewed. le 19:39 LIVER PROFILE Reviewed. le 19:39 THYROID STIMULATING HORMONE Reviewed. le 21:41 MRI Screening Tool - Place on chart, inform RN ordered. le 21:43 Bladder Scan please ordered. le 21:43 Straight cath ordered. le 21:43 -MRI-Brain w/o foll by with Ordered. EDMS 22:12 BED REQUEST+ADM ordered. EDMS 22:42 MRI Screening Tool - Place on chart, inform RN complete. ml3 09/23 01:07 LORazepam 1 mg IVP once ordered. mm11 01:40 MRI Spine,Cervical without con Ordered. EDMS 01:40 MRI Spine, L.S. without con Ordered. EDMS 01:40 MRI Spine,Thoracic without con Ordered. EDMS 01:45 LORazepam 1 mg IVP once ordered. mm11 02:09 Drug Eval Toxicology ED Only Reviewed. mm11 10:40 T-Sheet-- Draft Copy was scanned into [employer] and attached to record. gb Administered Medications: 09/22 18:25 Drug: NS 0.9% 1000 ml [sodium chloride 0.9 % intravenous solution] Route: IV; Rate: kc3 bolus; Site: left antecubital; 22:00 Follow up: IV Status: Completed infusion; IV Intake: 1000ml js15 09/23 01:18 Drug: LORazepam 1 mg [lorazepam 2 mg/mL injection solution (0.5 mL)] Route: IVP; Site: js15 left antecubital; 01:52 Drug: LORazepam 1 mg [lorazepam 2 mg/mL injection solution (0.5 mL)] Route: IVP; Site: js15 left antecubital; 02:15 Follow up: Response: No Adverse Reaction 15 Signatures: Dispatcher [employer] EDMS Kasey Ray, Reg Reg Vaishali Moreno, Retail Sales Director Unit ml3 Hung Berkowitz Matthew, DO DO mm11 Nita Dennis, FERTILIZING MACHINE OPERATOR FERTILIZING MACHINE OPERATOR Sabiha Claros,RN RN js15 Sue Bailey,RN RN kc3 The chart was reviewed and I authenticate all verbal orders and agree with the evaluation and treatment provided.Corrections: (The following items were deleted from the chart) 09/22 19:02 18:20 ACETAMINOPHEN LEVEL+LAB ordered. EDMS EDMS 19:02 18:20 ETHYL ALCOHOL (ETHANOL)+LAB ordered. EDMS EDMS 19:02 18:20 LIVER PROFILE+LAB ordered. EDMS EDMS 19:02 18:20 SALICYLATE LEVEL+LAB ordered. EDMS EDMS 19:02 18:20 THYROID STIMULATING HORMONE+LAB ordered. EDMS EDMS 23:36 21:43 MRI-Spine, Thoracic with con+MR ordered. EDMS EDMS 23:37 21:43 MRI-Spine,Thoracic without con+MR ordered. EDMS EDMS 09/23 01:40 09/22 21:43 MRI-Spine, Cervical w/o foll by with+MR ordered. EDMS EDMS 09/23 01:40 09/22 21:43 MRI-Spine, Lumbar w/o foll by with+MR ordered. EDMS EDMS 09/23 01:40 09/22 23:36 MRI T SPINE W/O FOLL WITH CON ordered. EDMS EDMS Attachments: 17:44 [facility] [place] Agreement zo 09/23 10:40 T-Sheet-- Draft Copy gb Chart Complete MTDD
== END 2016-09-23 04:22 | disposition home or self-care (01) ==
LOC: M ED 16:51
DX: F44.6 Conversion disorder with sensory symptom or deficit (principal); F43.12 Post-traumatic stress disorder, chronic; M54.2 Cervicalgia; G47.00 Insomnia, unspecified; Z87.891 Personal history of nicotine dependence; Z79.891 Long term (current) use of opiate analgesic; Z79.899 Other long term (current) drug therapy; Z88.8 Allergy status to other drugs, medicaments and biological substances; Z91.013 Allergy to seafood
CPT/HCPCS: 36415; 72141; 72146; 72148; 80048; 80076; 80306; 84443; 85025; 85652; 86140; 96361; 96374; 96376; 99285; G0480; J2060

== ENCOUNTER → 2016-09-25 | Outpatient (REF) | payer OTHER ==
[~2016-09-25] MED LIST changes: +CLON0.2T PO; +TYLE500T78 PO; +VENL75TA3 PO
[2016-09-27 00:06] LABS: Lyme Disease IgG/IgM Antibodie <0.91 ISR (0.00-0.90); Lyme Disease IgM Ab Quantitati <0.80 index (0.00-0.79)
== END ==
LOC: M SFHCPLAZ 10:12
PROVIDERS: ATTEND Family Medicine
DX: R20.0 Anesthesia of skin (principal); R33.9 Retention of urine, unspecified

== ENCOUNTER 2016-10-14 19:43 | Emergency (ER) | payer OTHER ==
[2016-10-14] MEDS ORDERED: NS 1,000 ML IV SCH (19:50)
[2016-10-14 20:05] LABS: BASO % 0.2 % (0.0-1.0); EOS # 0.1 K/mm3 (0.0-0.50); LARGE UNSTAINED CELL # 0.1 K/mm3 (0.0-0.4); LARGE UNSTAINED CELL % 0.9 % (0.0-4.0); LYMPH # 1.2 K/mm3 (1.5-6.5); LYMPH % 11.9 % (24.0-44.0); MEAN CORPUSCULAR HEMOGLOBIN 28.7 pg (27.0-33.0); MEAN CORPUSCULAR VOLUME 84.4 fl (80.0-96.0); MONO # 0.4 K/mm3 (0.0-0.8); NEUTROPHILS # 8.3 K/mm3 (1.8-7.7); NEUTROPHILS % 81.9 % (36.0-66.0); PLATELET COUNT, AUTOMATED 236 k/mm3 (150-450); RED CELL DISTRIBUTION WIDTH 11.8 % (11.5-14.5); WHITE BLOOD COUNT 10.1 K/mm3 (4.0-10.0)
[2016-10-14] MEDS ORDERED: CLONI1TA PO (20:14)
[2016-10-14] MEDS ORDERED: BUSP5TA PO (20:14)
--- NOTE | 2016-10-14 20:20 | REPUSA ---
CLINICAL HISTORY:Unresponsive TECHNIQUE: Head CT without contrast COMPARISON: No study for comparison is available at the time of interpretation. Brain: No intracranial hemorrhage, hydrocephalus, acute parenchymal edema or evident mass. Calvarium: Unremarkable. Sinuses (partially visualized): Clear. IMPRESSION: No acute intracranial findings.
[2016-10-14 20:39] LABS: ABG BASE EXCESS -1.2 (-2.0-2.0); ABG HCO3 24.7 MEQ/L (22.0-26.0); ABG PARTIAL PRESSURE CO2 45.4 mmHg (35.0-45.0); ABG PARTIAL PRESSURE O2 289.2 mmHg (75.0-100.0); ABG STANDARD HCO3 23.6 MEQ/L (22.0-26.0); ABG TOTAL CO2 26.1 MEQ/L (22.0-29.0); ABG pH (ARTERIAL) 7.353 UNITS (7.350-7.450)
[2016-10-14 20:42] LABS: ALBUMIN/GLOBULIN RATIO 1.25 (1.00-1.93); ALKALINE PHOSPHATASE 76 U/L (45-117); ALT/SGPT 19 U/L (12-78); ANION GAP 11 MEQ/L (8-16); AST/SGOT 17 U/L (15-37); BILIRUBIN,DIRECT 0.1 MG/DL (0.0-0.2); BILIRUBIN,TOTAL 0.3 MG/DL (0.2-1.0); BLOOD UREA NITROGEN 11 MG/DL (7-18); CALCIUM LEVEL 8.6 MG/DL (8.5-10.1); CARBON DIOXIDE LEVEL 25 MEQ/L (21-32); CHLORIDE LEVEL 107 MEQ/L (98-107); GLOMERULAR FILTRATION RATE > 60.0 (>60); GLUCOSE, FASTING 110 MG/DL (70-105); POTASSIUM SERUM 3.8 MEQ/L (3.5-5.1); SODIUM LEVEL 143 MEQ/L (136-145); TOTAL PROTEIN 7.2 GM/DL (6.4-8.2)
[2016-10-14 20:44] LABS: CONTROL LINE HCG INT CTR LINE PRESENT
[2016-10-14 21:15] LABS: METHADONE URINE NEGATIVE (NEGATIVE)
--- NOTE | 2016-10-14 22:50 | REPUSA ---
HISTORY: Trauma COMPARISON: MR cervical September 23, 2016. CT C-SPINE with reformations: C1 through T1: Neural rings intact without fracture. Dens intact. Central canal: Patent without neural encroachment. Alignment (by reformations): No acute listhesis. IMPRESSION: Nontraumatic C-spine.
[2016-10-14 23:30] VITALS: BP 114/63
--- NOTE | 2016-10-15 06:43 | ECGEPIP ---
Stationary ECG Study [facility] - ED Test Date: 2016-10-14 Pat Name: TYRONE REILLY Department: Room: - Gender: F Aws Consultant: lokesh : 1995 Requested By: MAR Kumar Order Number: [id number] Reading MD: Lilibeth Bird Measurements Intervals Davidson Rate: 73 P: -3 MT: 120 QRS: 64 QRSD: 116 T: 39 QT: 388 QTc: 430 Interpretive Statements SINUS RHYTHM MODERATE INTRAVENTRICULAR CONDUCTION DELAY 05/21/16 - RATE DECREASED Electronically Signed On 10-15-2016 6:43:17 EDT by Lilibeth Bird
--- NOTE | 2016-10-15 10:36 | REP ---
Altered mental status: PRIORS: None. FINDINGS: The technique utilized in obtaining the radiograph has magnified the cardiac silhouette and accentuated the interstitial markings. The superior mediastinal structures are midline. The cardiac silhouette is unremarkable in size, shape, and position. The diaphragmatic surfaces of the lungs are regular, and the costophrenic angles are clear. The pulmonary vo are clear. The imaged osseous structures are intact. IMPRESSION: There is no acute cardiopulmonary disease. Signed by Sumit Angeles DO 10/15/2016 11:25 A
== END 2016-10-15 00:10 | disposition home or self-care (01) ==
LOC: M ED 20:47
DX: R56.9 Unspecified convulsions (principal); J45.909 Unspecified asthma, uncomplicated; G89.4 Chronic pain syndrome; G43.909 Migraine, unspecified, not intractable, without status migrainosus; F43.10 Post-traumatic stress disorder, unspecified; F41.9 Anxiety disorder, unspecified; F43.0 Acute stress reaction; M48.00 Spinal stenosis, site unspecified; M50.30 Other cervical disc degeneration, unspecified cervical region; Z79.899 Other long term (current) drug therapy; Z79.891 Long term (current) use of opiate analgesic; Z91.013 Allergy to seafood; Z88.8 Allergy status to other drugs, medicaments and biological substances
CPT/HCPCS: 36600; 51702; 70450; 71010; 72125; 80048; 80076; 80306; 81001; 82550; 82553; 82803; 84443; 84703; 85025; 87086; 93005; 93041; 96360; 96361; 99285; G0480

== ENCOUNTER → 2016-10-17 | Outpatient (REF) | payer OTHER ==
[~2016-10-17] MED LIST changes: +BUSP5TA PO; +CLONI1TA PO
== END ==
LOC: M SFHCPLAZ 12:15
PROVIDERS: ATTEND Family Medicine
DX: R29.898 Other symptoms and signs involving the musculoskeletal system (principal)

== ENCOUNTER → 2016-10-27 | Outpatient (CLI) | payer OTHER ==
[~2016-10-27] MED LIST changes: +CYCL10TA PO; +GABA-283 PO
--- NOTE | 2016-10-27 16:53 | REP ---
MRI BRAIN WITHOUT CONTRAST: HISTORY: Bilateral leg weakness. COMPARISON: CT 10/14/2016. There are no areas of abnormal signal intensity in the brain. There is no intraparenchymal hemorrhage, infarct, mass or midline shift. The ventricular system is normal in appearance. There is no extracerebral collection. The sinuses are clear. IMPRESSION: There is no intracranial lesion. Signed by Ezio Red MD 10/27/2016 04:54 P
== END ==
LOC: M RAD 15:55
PROVIDERS: ATTEND Family Medicine
DX: R29.898 Other symptoms and signs involving the musculoskeletal system (principal); R40.20 Unspecified coma

== ENCOUNTER 2016-10-29 17:35 | Observation (INO) | payer OTHER ==
[~2016-10-29] VITALS: Ht 147.3 cm; Wt 61.0 kg
[~2016-10-29 17:35] MED LIST changes: -CYCL10TA PO; +GABA-282 PO; -GABA-283 PO; -GABA300C3 PO
[2016-10-29] MEDS ORDERED: HYDR-4274 PO (17:54)
[2016-10-29] MEDS ORDERED: GABA-283 PO (17:54)
[2016-10-29] MEDS ORDERED: CYCL10TA PO (17:54)
[2016-10-29] MEDS ORDERED: AMMONIA AROMATIC INHALANT (FLOOR STOCK) As Ordered ONE (18:36)
[2016-10-29 18:45] LABS: BASO % 0.2 % (0.0-1.0); EOS # 0.2 K/mm3 (0.0-0.50); EOS % 1.6 % (0.0-3.0); LARGE UNSTAINED CELL # 0.1 K/mm3 (0.0-0.4); LARGE UNSTAINED CELL % 0.7 % (0.0-4.0); LYMPH # 1.1 K/mm3 (1.5-6.5); LYMPH % 8.9 % (24.0-44.0); MEAN CORPUSCULAR HEMOGLOBIN 29.1 pg (27.0-33.0); MEAN CORPUSCULAR HGB CONC 34.6 g/dl (32.0-36.5); MONO # 0.7 K/mm3 (0.0-0.8); MONO % 5.3 % (0.0-5.0); NEUTROPHILS # 10.2 K/mm3 (1.8-7.7); NEUTROPHILS % 83.2 % (36.0-66.0); PLATELET COUNT, AUTOMATED 225 k/mm3 (150-450); RED CELL DISTRIBUTION WIDTH 11.8 % (11.5-14.5); WHITE BLOOD COUNT 12.3 K/mm3 (4.0-10.0)
[2016-10-29 18:55] LABS: CONTROL LINE HCG INT CTR LINE PRESENT
[2016-10-29 19:00] LABS: ALBUMIN 3.7 GM/DL (3.2-5.2); ALBUMIN/GLOBULIN RATIO 1.19 (1.00-1.93); ALKALINE PHOSPHATASE 72 U/L (45-117); ALT/SGPT 17 U/L (12-78); ANION GAP 10 MEQ/L (8-16); AST/SGOT 14 U/L (15-37); BILIRUBIN,DIRECT < 0.1 MG/DL (0.0-0.2); BILIRUBIN,TOTAL 0.1 MG/DL (0.2-1.0); BLOOD UREA NITROGEN 6 MG/DL (7-18); CALCIUM LEVEL 8.2 MG/DL (8.5-10.1); CARBON DIOXIDE LEVEL 26 MEQ/L (21-32); CHLORIDE LEVEL 107 MEQ/L (98-107); CREATININE FOR GFR 0.76 MG/DL (0.55-1.02); GLOMERULAR FILTRATION RATE > 60.0 (>60); GLUCOSE, FASTING 97 MG/DL (70-105); MAGNESIUM LEVEL 1.8 MG/DL (1.8-2.4); PHOSPHORUS LEVEL 2.3 MG/DL (2.5-4.9); POTASSIUM SERUM 3.8 MEQ/L (3.5-5.1); SODIUM LEVEL 143 MEQ/L (136-145); TOTAL PROTEIN 6.8 GM/DL (6.4-8.2)
--- NOTE | 2016-10-29 19:30 | REP ---
Clinical: Status epilepticus . Comparison: 10/14/2016 . Findings: The ventricles, sulci, and cisterns are normal in position and appearance. Del Toro-white differentiation is maintained. No acute intracranial hemorrhage, mass/mass effect, pathology or trauma/injury. No evidence for acute infarction. No extra-axial fluid collection. Calvarium is intact. Paranasal sinuses and mastoid air cells are clear. Impression: Normal noncontrast head CT. No evidence for acute intracranial pathology or trauma/injury. Signed by José Luis Zimmer MD 10/29/2016 07:21 P
[2016-10-29 20:23] LABS: METHADONE URINE NEGATIVE (NEGATIVE)
[2016-10-29] MEDS ORDERED: LORazepam 2 MG/ML VIAL (J2060) IV PRN (20:45)
[2016-10-29] MEDS ORDERED: NS 1,000 ML IV SCH (21:00)
--- NOTE | 2016-10-29 21:27 | HPEPDOC ---
Medical History and Physical Date of Admission 10/29/16 History and Physical PRIMARY CARE PROVIDER: Dr. Tushar De ATTENDING: Dr. Iqbal CHIEF COMPLAINT: 'seizure' HISTORY OF PRESENT ILLNESS: This is a 21-year-old female past with history of asthma, PTSD, major depressive disorder, anxiety who presents after her mother noted that she was having tonic-clonic movements. The patient does not remember the incident however the mother noted that she had the grocery store and had approximately 3 PM when she found the patient's in bed having tonic-clonic movements. No fecal, urinary incontinence. No tongue trauma. Mother states this happened 2 weeks ago and the patient is unresponsive , brought to the ED, had followed up with Dr. Farfan's office outpatient with the pending workup. No patient or family history of seizures. MRI Brain was also noted to be negative. Signed out from the ED physician notable for a total of 10 mg of Versed, 5 intranasal on 5 IV. There was a question of whether the patient is malingering however laboratory findings of left acidosis tachycardia and leukocytosis are concerning. ED physician had talked to Dr. Hughes with recommendations for no antiepileptics at this time, and follow-up EEG while the patient is in the hospital. PAST MEDICAL HISTORY: As per HPI PAST SURGICAL HISTORY: None SOCIAL HISTORY:H/o tobacco abuse, quit 1 month ago. No alcohol or illicit drug use. Lives with mother. FAMILY HISTORY:Non contrib ALLERGIES: Please see below. REVIEW OF SYSTEMS: HEENT: Denies sore throat/headache CARDIOVASCULAR: Denies chest pain/palpitations RESPIRATORY: No shortness of breath/cough GASTROINTESTINAL: denies nausea/vomiting GENITOURINARY: Denies dysuria/urinary urgency. MUSCULOSKELETAL: Denies myalgias/arthralgias NEUROLOGICAL: Denies any focal weakness Rest of ROS negative. HOME MEDICATIONS: Please see below. PHYSICAL EXAMINATION: Vitals: (see below) General: No acute distress, laying comfortably in bed. HEENT: Moist mucous membranes. Neck: No JVD or lymphadenopathy Cardiac: RRR, No murmurs Pulm: Clear to auscultation b/l. No wheezing, rhonchi Abd: NT/ND + BS Ext: No edema or cyanosis Neuro: Strength 5/5 BUE and BLE. CN 2-12 intact. F to N intact Negative Babinki. LABORATORY DATA: See below. IMAGING: CT Head 10/29/16 Impression: Normal noncontrast head CT. No evidence for acute intracranial pathology or trauma/injury. MRI Brain 10/29/16 IMPRESSION: There is no intracranial lesion. CXR pending. MICROBIOLOGY: Please see below. ASSESSMENT/PLAN: 1. ? Seizure vs pseudoseizure - prior episode 2 weeks ago. MRI brain negative. EEG pending. mother had noticed the patient having tonic-clonic movements. No urinary, fecal incontinence. No tongue trauma. Had received 5 mg of intranasal Versed and 5 mg of IV Versed as well. Episodes have resolved. Neuro checks. ED had spoken to Dr. Hughes with the recommendations for no antiepileptic agents at this time. Seizure precautions. 2. Leukocytosis/lactic acidosis/tachycardia- no source of infection at this time. Chest x-ray pending. Urinalysis negative. No diarrhea or abdominal pain. May be secondary to #1. All continue IV fluids and observe off antibiotics. Monitor labs. 3. MDD/PTSD/anxiety- continue home meds 4. History of asthma- stable DVT prophylaxis- enoxaparin Patient followed by Dr. Iqbal starting at 10/29/16 7 AM. Vital Signs Vital Signs Date Time Temp Pulse Resp B/P Pulse Ox O2 Delivery O2 Flow Rate FiO2 10/29/16 17:50 99.8 94 16 125/74 96 Laboratory Data Labs 24H Laboratory Tests 2 10/29/16 18:09: Aspartate Amino Transf (AST/SGOT) 14L, Alanine Aminotransferase (ALT/SGPT) 17, Alkaline Phosphatase 72, Total Bilirubin 0.1L, Direct Bilirubin < 0.1, Albumin 3.7, Albumin/Globulin Ratio 1.19, Anion Gap 10, White Blood Count 12.3H, Red Blood Count 4.75, Hemoglobin 13.8, Hematocrit 39.9, Mean Corpuscular Volume 84.0 , Mean Corpuscular Hemoglobin 29.1, Mean Corpuscular Hemoglobin Concent 34.6, Red Cell Distribution Width 11.8, Platelet Count 225, Neutrophils (%) (Auto) 83.2H, Lymphocytes (%) (Auto) 8.9L, Monocytes (%) (Auto) 5.3H, Eosinophils (%) ( Auto) 1.6, Basophils (%) (Auto) 0.2, Neutrophils # (Auto) 10.2H, Lymphocytes # ( Auto) 1.1L, Monocytes # (Auto) 0.7, Eosinophils # (Auto) 0.2, Basophils # (Auto ) 0.0, Calcium Level 8.2L, Glomerular Filtration Rate > 60.0, Human Chorionic Gonadotropin, Qual NEGATIVE, Lactic Acid Level 3.8*H, Large Unclassified Cells # 0.1, Large Unclassified Cells % 0.7, Magnesium Level 1.8, Phosphorus Level 2.3L, Total Protein 6.8 10/29/16 19:58: Urine Amorphous Sediment , Urine Amphetamines Screen NEGATIVE, Urine Benzodiazepines Screen POSITIVEH, Urine Opiates Screen NEGATIVE, Urine Appearance CLEAR, Urine Color YELLOW, Urine pH 7.0, Urine Specific [place] 1.015 , Urine Protein NEGATIVE, Urine Glucose (UA) NEGATIVE, Urine Ketones NEGATIVE, Urine Urobilinogen 0.2, Urine Bilirubin NEGATIVE, Urine Leukocyte Esterase NEGATIVE, Urine Bacteria (Auto) NEGATIVE, Urine Barbiturates Screen NEGATIVE, Urine Blood NEGATIVE, Urine Calcium Carbonate Cryst(Auto) , Urine Calcium Oxalate Cryst (Auto) , Urine Calcium Phosphate Chelsie (Auto) , Urine Cannabinoids Screen NEGATIVE, Urine Cellular Casts , Urine Cocaine Metabolite Screen NEGATIVE , Urine Cystine Crystals , Urine Granular Casts (Auto) , Urine Hyaline Casts ( Auto) 0, Urine Leucine Crystals , Urine Methadone Screen NEGATIVE, Urine Mucus ( Auto) SMALL, Urine Nitrite NEGATIVE, Urine Oval Fat Bodies (Auto) , Urine Phencyclidine Screen NEGATIVE, Urine RBC (Auto) 0, Urine Renal Epithelial Cells , Urine Sperm (Auto) , Urine Squamous Epithelial Cells 1, Urine Transitional Epithelial Cells , Urine Trichomonas (Auto) , Urine Triple Phosphate Cryst (Auto ) , Urine Tyrosine Crystals , Urine Uric Acid Crystals (Auto) , Urine WBC (Auto ) 0, Urine Waxy Casts (Auto) , Urine Yeast-Like Cells (Auto) CBC/BMP Laboratory Tests 10/29/16 18:09 Red Blood Count 4.75, Mean Corpuscular Volume 84.0, Mean Corpuscular Hemoglobin 29.1, Mean Corpuscular Hemoglobin Concent 34.6, Red Cell Distribution Width 11.8 , Neutrophils (%) (Auto) 83.2 H, Lymphocytes (%) (Auto) 8.9 L, Monocytes (%) ( Auto) 5.3 H, Eosinophils (%) (Auto) 1.6, Basophils (%) (Auto) 0.2, Neutrophils # (Auto) 10.2 H, Lymphocytes # (Auto) 1.1 L, Monocytes # (Auto) 0.7, Eosinophils # (Auto) 0.2, Basophils # (Auto) 0.0 Microbiology Microbiology 10/29/16 Blood Culture, Received Pending 10/29/16 Urine Culture, Received Pending Home Medications Scheduled Buspirone HCl (Buspirone HCl) 5 Mg Tab 5 MG PO BID Clonidine Hcl (Catapres) 0.1 Mg Tab 0.1 MG PO QHS Gabapentin (Gabapentin) 400 Mg Cap 900 MG PO TID Tramadol HCl (Tramadol HCl) 50 Mg Tab 50 MG PO BID Venlafaxine Hydrochloride (Venlafaxine HCl ER) 75 Mg Tab 225 MG PO DAILY Zolpidem Tartrate (Ambien) 10 Mg Tab 10 MG PO QHS Scheduled PRN Albuterol Sulfate (Ventolin Hfa) 200 Puff/8 Gm Aers 2 PUFF INH Q4H PRN PRN SHORTNESS OF BREATH Cyclobenzaprine HCl (Cyclobenzaprine HCl) 10 Mg Tab 10 MG PO TID PRN PRN MUSCLE SPASMS Hydroxyzine HCl (Hydroxyzine HCl) 50 Mg Tab 50 MG PO Q6H PRN PRN ANXIETY Allergies Coded Allergies: Shellfish Allergy (Verified Allergy, Severe, HIVES, 10/14/16) Haloperidol (Unverified Allergy, Unknown, "TENSES UP", 10/14/16) ANDREW MILLER MD Oct 29, 2016 21:27
[2016-10-29] MEDS ORDERED: ALBUTEROL 90 MCG/ACT 8GM HFA INHALER INH PRN (21:30)
[2016-10-29] MEDS ORDERED: CYCLOBENZAPRINE 10 MG TAB PO PRN (21:30)
[2016-10-29] MEDS ORDERED: hydrOXYzine 50 MG TAB PO PRN (21:30)
[2016-10-29 22:17] LABS: VENOUS BASE EXCESS 0.4 (-2.0-2.0); VENOUS O2 SATURATION 44.3 % (60.0-80.0); VENOUS PARTIAL PRESSURE CO2 45.7 mmHg (38.0-50.0); VENOUS PARTIAL PRESSURE O2 22.5 mmHg (30.0-50.0); VENOUS STANDARD HCO3 23.6 MEQ/L; VENOUS TOTAL CO2 27.5 MEQ/L (24.0-28.0)
[2016-10-29 22:20] VITALS: BP 127/69
[2016-10-29 22:23] LABS: BASO % 0.2 % (0.0-1.0); EOS # 0.1 K/mm3 (0.0-0.50); EOS % 0.8 % (0.0-3.0); LARGE UNSTAINED CELL # 0.1 K/mm3 (0.0-0.4); LARGE UNSTAINED CELL % 0.9 % (0.0-4.0); LYMPH # 1.6 K/mm3 (1.5-6.5); LYMPH % 13.3 % (24.0-44.0); MEAN CORPUSCULAR HEMOGLOBIN 30.2 pg (27.0-33.0); MEAN CORPUSCULAR HGB CONC 34.8 g/dl (32.0-36.5); MEAN CORPUSCULAR VOLUME 86.7 fl (80.0-96.0); MONO # 0.5 K/mm3 (0.0-0.8); NEUTROPHILS # 9.2 K/mm3 (1.8-7.7); NEUTROPHILS % 80.7 % (36.0-66.0); PLATELET COUNT, AUTOMATED 207 k/mm3 (150-450); WHITE BLOOD COUNT 11.4 K/mm3 (4.0-10.0)
[2016-10-29] MEDS ORDERED: CYCLOBENZAPRINE 5MG TABLET PO PRN (22:27)
[2016-10-29] MEDS: zolPIDEM TARTRATE 10MG TAB PO SCH (22:44)
[2016-10-29] MEDS: GABAPENTIN 300 MG CAP PO SCH (22:44)
[2016-10-29] MEDS: cloNIDine 0.1 MG TAB PO SCH (22:45)
[2016-10-29] MEDS: traMADol 50 MG TAB PO SCH (22:46)
[2016-10-29 23:02] LABS: ALBUMIN 3.7 GM/DL (3.2-5.2); ALBUMIN/GLOBULIN RATIO 1.12 (1.00-1.93); ALKALINE PHOSPHATASE 72 U/L (45-117); ALT/SGPT 16 U/L (12-78); ANION GAP 8 MEQ/L (8-16); AST/SGOT 12 U/L (15-37); BILIRUBIN,TOTAL 0.3 MG/DL (0.2-1.0); BLOOD UREA NITROGEN 6 MG/DL (7-18); CALCIUM LEVEL 8.7 MG/DL (8.5-10.1); CARBON DIOXIDE LEVEL 28 MEQ/L (21-32); CHLORIDE LEVEL 105 MEQ/L (98-107); CREATININE FOR GFR 0.64 MG/DL (0.55-1.02); GLOMERULAR FILTRATION RATE > 60.0 (>60); GLUCOSE, FASTING 100 MG/DL (70-105); POTASSIUM SERUM 3.6 MEQ/L (3.5-5.1); SODIUM LEVEL 141 MEQ/L (136-145)
[2016-10-29] MEDS: busPIRone 5 MG TAB PO SCH (23:33)
[2016-10-30] VITALS (7 sets, daily range): BP systolic 107–129; BP diastolic 52–76
[2016-10-30 05:25] LABS: BASO % 0.2 % (0.0-1.0); EOS # 0.3 K/mm3 (0.0-0.50); EOS % 3.6 % (0.0-3.0); LARGE UNSTAINED CELL # 0.1 K/mm3 (0.0-0.4); LARGE UNSTAINED CELL % 1.4 % (0.0-4.0); LYMPH # 2.2 K/mm3 (1.5-6.5); LYMPH % 26.3 % (24.0-44.0); MEAN CORPUSCULAR HEMOGLOBIN 29.1 pg (27.0-33.0); MEAN CORPUSCULAR HGB CONC 34.7 g/dl (32.0-36.5); MEAN CORPUSCULAR VOLUME 83.7 fl (80.0-96.0); MONO # 0.5 K/mm3 (0.0-0.8); MONO % 6.2 % (0.0-5.0); NEUTROPHILS # 5.3 K/mm3 (1.8-7.7); NEUTROPHILS % 62.4 % (36.0-66.0); PLATELET COUNT, AUTOMATED 206 k/mm3 (150-450); RED CELL DISTRIBUTION WIDTH 11.9 % (11.5-14.5); WHITE BLOOD COUNT 8.4 K/mm3 (4.0-10.0)
[2016-10-30 05:37] LABS: ANION GAP 7 MEQ/L (8-16); BLOOD UREA NITROGEN 6 MG/DL (7-18); CARBON DIOXIDE LEVEL 28 MEQ/L (21-32); CHLORIDE LEVEL 108 MEQ/L (98-107); CREATININE FOR GFR 0.57 MG/DL (0.55-1.02); GLOMERULAR FILTRATION RATE > 60.0 (>60); GLUCOSE, FASTING 94 MG/DL (70-105); POTASSIUM SERUM 3.8 MEQ/L (3.5-5.1); SODIUM LEVEL 143 MEQ/L (136-145)
--- NOTE | 2016-10-30 07:57 | REP ---
Clinical: Leukocytosis . Comparison: 10/14/2016 . Technique: PA and lateral. Findings: The mediastinum and cardiac silhouette are normal. The lung vo are clear and without acute consolidation, effusion, or pneumothorax. The skeletal structures are intact and normal. Impression: 1. No acute cardiopulmonary process. Signed by José Luis Zimmer MD 10/30/2016 07:48 A
[2016-10-30] MEDS ORDERED: VENLAFAXINE **XR** 75MG CAPSULE PO SCH (09:00)
[2016-10-30] MEDS: GABAPENTIN 300 MG CAP PO SCH ×3 (09:07→20:44)
[2016-10-30] MEDS: traMADol 50 MG TAB PO SCH ×2 (09:08→20:45)
[2016-10-30] MEDS: busPIRone 5 MG TAB PO SCH ×2 (09:08→20:45)
[2016-10-30] MEDS ORDERED: **NOTE PATIENT COMMENT** MISC XX SCH (12:30)
--- NOTE | 2016-10-30 14:34 | IPNPDOC ---
Subjective Date Seen The patient was seen on 10/30/16. Subjective Chief Complaint/HPI The patient is a 21-year-old female admitted with a reason for visit of Pseudoseizures. Events since last encounter Ms. Polo states she feels tired but denies other complaints. Her mother states she had multiple seizures in the ED; I reviewed ED notes which state patient had a 20-30 sec seizure but maintained eye contact with ED physician throughout and thereafter; she had a second seizure 40 minutes later that last 45 sec and stopped with painful stimulation. The patient states that her MRI of her spine in September is "much much worse" than prior MRIs based on her comparison of the reports and she is concerned about this. She is also concerned that for the past 2 months, she urinates 3-4 times a day which she feels is not often enough , and that when she urinates she does not empty her bladder completely. Constitutional: Denies: Chills Eyes: Denies: Pain ENT: Denies: Head Aches Pulmonary: Denies: Cough, Dyspnea Cardiovascular: Denies: Chest Pain, Palpitations Gastrointestinal: Denies: Abdominal Pain, Nausea, Vomiting Genitourinary: Reports: Retention, Denies: Dysuria, Frequency, Incontinence Hematologic: Denies: Bruising Neurological: Reports: Numbness (chronic numbness in feet, lower legs, and hands bilaterally that is intermittent and currently present) Psych: Reports: Anxiety, Depression, Denies: Thoughts of Harming Other, Thoughts of Self Harm Objective Physical Examination General Exam: Positive: Alert, No Acute Distress Eye Exam: Positive: EOMI, PERRLA, Negative: Sclera icteric ENT Exam: Positive: Atraumatic, Mucous membr. moist/pink Chest Exam: Positive: Clear to auscultation, Normal air movement Heart Exam: Positive: Normal S1, Normal S2, Rate Normal, Regular Rhythm Abdomen Exam: Positive: Normal bowel sounds, Soft, Negative: Tenderness Neuro Exam: Positive: Cranial Nerves 3-12 NL, Normal Speech, Normal Tone, Sensation Intact (subjective decreased sensation in feet, ankles, and hands bilaterally), Strength at 5/5 X4 ext (with encouragement) Psych Exam: Positive: Mental status NL (Appears mildly anxious and depressed), Oriented x 3, Negative: Memory Intact (patient does not remember events leading up to admission and in ED) Assessment /Plan Problems (1) Seizure Status: Acute Problem Text: Patient is being worked up by neurology for seizures vs. pseudoseizures; she had no tongue trauma or incontinence s/p episode of tonic- clonic like movements yesterday. ED notes indicate that episodes were not typical seizures - patient maintained eye contact and they terminated with painful stimuli. However, she did have an elevated lactic acid and leukocytosis upon admission which have since resolved. They have not recurred since admission. Dr. Baker was called by the ED and did not recommend starting antiepileptics at this time. - EEG was done today and the report is pending. - Patient's nurse states patient was to receive an LP today as an outpatient - patient and her mother who is at bedside state they don't know anything about this, and there is no mention of this being ordered in Dr. De's notes or in Dr. Farfan's notes in [facility]. (2) Leukocytosis Status: Resolved Problem Text: Leukocytosis and lactic acidosis rapidly resolved without antibiotics, which suggests elevations may have been related to seizure activity. 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 Continue home venlafaxine, hydroxyzine, buspirone, clonidine, and ambien. (4) Asthma Status: Chronic Response to Treatment: Stable Problem Text: Continue home PRN albuterol. (5) Bilateral leg weakness Status: Chronic Problem Text: Patient has been following with Neuro for this and this was worked up with MRI of cervical, thoracic, and lumbar spine 09/22/2016 that showed mild disc degeneration only. Neuro exam is normal today with 5/5 strength of lower extremities. (6) Urinary retention Status: Chronic Problem Text: Patient reports 2 months of feeling she has difficulty voiding and incomplete voiding; she does urinate 3-4 times per day. MRI of spine done does not show any spinal cord impingement per reports. Will check PVR. (7) Chronic neck pain Status: Chronic Problem Text: She takes flexeril, tramadol, and neurontin for this. She states she was started on tramadol 1 year ago because "I was taking massive amounts of ibuprofen and tylenol". I d/w her that tramadol can lower the seizure threshold, to which her mother responded "if you take her off of it, it could also cause seizures". As I am not convinced she is having true seizures, I will continue tramadol now but I discussed with the patient that this may need to be tapered in the future. Plan/VTE VTE Prophylaxis Ordered?: No VTE Exclusion Mechanical Proph: Low Risk for VTE (SCD and TEDs ordered) VS, I&O, 24H, Fishbone Vital Signs/I&O Vital Signs Date Time Temp Pulse Resp B/P Pulse Ox O2 Delivery O2 Flow Rate FiO2 10/30/16 09:08 18 10/30/16 08:05 Room Air 10/30/16 08:00 98.0 67 110/63 98 I&O- Last 24 Hours up to 6 AM 10/30/16 06:00 Intake Total 750 ml Output Total 300 ml Balance 450 ml Laboratory Data 24H LABS Laboratory Tests 2 10/29/16 18:09: Aspartate Amino Transf (AST/SGOT) 14L, Alanine Aminotransferase (ALT/SGPT) 17, Alkaline Phosphatase 72, Total Bilirubin 0.1L, Direct Bilirubin < 0.1, Albumin 3.7, Albumin/Globulin Ratio 1.19, Anion Gap 10, White Blood Count 12.3H, Red Blood Count 4.75, Hemoglobin 13.8, Hematocrit 39.9, Mean Corpuscular Volume 84.0 , Mean Corpuscular Hemoglobin 29.1, Mean Corpuscular Hemoglobin Concent 34.6, Red Cell Distribution Width 11.8, Platelet Count 225, Neutrophils (%) (Auto) 83.2H, Lymphocytes (%) (Auto) 8.9L, Monocytes (%) (Auto) 5.3H, Eosinophils (%) ( Auto) 1.6, Basophils (%) (Auto) 0.2, Neutrophils # (Auto) 10.2H, Lymphocytes # ( Auto) 1.1L, Monocytes # (Auto) 0.7, Eosinophils # (Auto) 0.2, Basophils # (Auto ) 0.0, Calcium Level 8.2L, Glomerular Filtration Rate > 60.0, Human Chorionic Gonadotropin, Qual NEGATIVE, Lactic Acid Level 3.8*H, Large Unclassified Cells # 0.1, Large Unclassified Cells % 0.7, Magnesium Level 1.8, Phosphorus Level 2.3L, Total Creatine Kinase 109, Total Protein 6.8 10/29/16 19:58: Urine Amorphous Sediment , Urine Amphetamines Screen NEGATIVE, Urine Benzodiazepines Screen POSITIVEH, Urine Opiates Screen NEGATIVE, Urine Appearance CLEAR, Urine Color YELLOW, Urine pH 7.0, Urine Specific [place] 1.015 , Urine Protein NEGATIVE, Urine Glucose (UA) NEGATIVE, Urine Ketones NEGATIVE, Urine Urobilinogen 0.2, Urine Bilirubin NEGATIVE, Urine Leukocyte Esterase NEGATIVE, Urine Bacteria (Auto) NEGATIVE, Urine Barbiturates Screen NEGATIVE, Urine Blood NEGATIVE, Urine Calcium Carbonate Cryst(Auto) , Urine Calcium Oxalate Cryst (Auto) , Urine Calcium Phosphate [place] (Auto) , Urine Cannabinoids Screen NEGATIVE, Urine Cellular Casts , Urine Cocaine Metabolite Screen NEGATIVE , Urine Cystine Crystals , Urine Granular Casts (Auto) , Urine Hyaline Casts ( Auto) 0, Urine Leucine Crystals , Urine Methadone Screen NEGATIVE, Urine Mucus ( Auto) SMALL, Urine Nitrite NEGATIVE, Urine Oval Fat Bodies (Auto) , Urine Phencyclidine Screen NEGATIVE, Urine RBC (Auto) 0, Urine Renal Epithelial Cells , Urine Sperm (Auto) , Urine Squamous Epithelial Cells 1, Urine Transitional Epithelial Cells , Urine Trichomonas (Auto) , Urine Triple Phosphate Cryst (Auto ) , Urine Tyrosine Crystals , Urine Uric Acid Crystals (Auto) , Urine WBC (Auto ) 0, Urine Waxy Casts (Auto) , Urine Yeast-Like Cells (Auto) 10/29/16 21:49: Aspartate Amino Transf (AST/SGOT) 12L, Alanine Aminotransferase (ALT/SGPT) 16, Alkaline Phosphatase 72, Total Bilirubin 0.3#, Albumin 3.7, Albumin/Globulin Ratio 1.12, Anion Gap 8, White Blood Count 11.4H, Red Blood Count 4.58, Hemoglobin 13.8, Hematocrit 39.6, Mean Corpuscular Volume 86.7, Mean Corpuscular Hemoglobin 30.2, Mean Corpuscular Hemoglobin Concent 34.8, Red Cell Distribution Width 12.0, Platelet Count 207, Neutrophils (%) (Auto) 80.7H, Lymphocytes (%) (Auto) 13.3L, Monocytes (%) (Auto) 4.0, Eosinophils (%) (Auto) 0.8, Basophils (%) (Auto) 0.2, Neutrophils # (Auto) 9.2H, Lymphocytes # (Auto) 1.6, Monocytes # (Auto) 0.5, Eosinophils # (Auto) 0.1, Basophils # (Auto) 0.0, Calcium Level 8.7, Glomerular Filtration Rate > 60.0, Lactic Acid Level 2.1*H, Large Unclassified Cells # 0.1, Large Unclassified Cells % 0.9, Total Protein 7.0, Blood Urea Nitrogen 6L, Creatinine 0.64, Sodium Level 141, Potassium Level 3.6, Chloride Level 105, Carbon Dioxide Level 28, Blood Gas Bicarbonate Standard 23.6, C-Reactive Protein, Quantitative < 0.30, Venous Blood Base Excess 0.4, Venous Blood pH 7.374, Venous Blood Partial Pressure CO2 45.7, Venous Blood Partial Pressure O2 22.5L, Venous Blood Total Carbon Dioxide 27.5, Venous Blood HCO3 26.1, Venous Blood Oxygen Saturation 44.3L 10/30/16 02:15: Lactic Acid Followup at 4 Hours 1.1 10/30/16 04:58: Anion Gap 7L, White Blood Count 8.4, Red Blood Count 4.29, Hemoglobin 12.5, Hematocrit 35.9L, Mean Corpuscular Volume 83.7, Mean Corpuscular Hemoglobin 29.1 , Mean Corpuscular Hemoglobin Concent 34.7, Red Cell Distribution Width 11.9, Platelet Count 206, Neutrophils (%) (Auto) 62.4, Lymphocytes (%) (Auto) 26.3, Monocytes (%) (Auto) 6.2H, Eosinophils (%) (Auto) 3.6H, Basophils (%) (Auto) 0.2 , Neutrophils # (Auto) 5.3, Lymphocytes # (Auto) 2.2, Monocytes # (Auto) 0.5, Eosinophils # (Auto) 0.3, Basophils # (Auto) 0.0, Blood Urea Nitrogen 6L, Creatinine 0.57, Sodium Level 143, Potassium Level 3.8, Chloride Level 108H, Carbon Dioxide Level 28, Calcium Level 8.0L, Glomerular Filtration Rate > 60.0, Large Unclassified Cells # 0.1, Large Unclassified Cells % 1.4 CBC/BMP Laboratory Tests 10/29/16 18:09 Red Blood Count 4.75, Mean Corpuscular Volume 84.0, Mean Corpuscular Hemoglobin 29.1, Mean Corpuscular Hemoglobin Concent 34.6, Red Cell Distribution Width 11.8 , Neutrophils (%) (Auto) 83.2 H, Lymphocytes (%) (Auto) 8.9 L, Monocytes (%) ( Auto) 5.3 H, Eosinophils (%) (Auto) 1.6, Basophils (%) (Auto) 0.2, Neutrophils # (Auto) 10.2 H, Lymphocytes # (Auto) 1.1 L, Monocytes # (Auto) 0.7, Eosinophils # (Auto) 0.2, Basophils # (Auto) 0.0 10/29/16 21:49 Red Blood Count 4.58, Mean Corpuscular Volume 86.7, Mean Corpuscular Hemoglobin 30.2, Mean Corpuscular Hemoglobin Concent 34.8, Red Cell Distribution Width 12.0 , Neutrophils (%) (Auto) 80.7 H, Lymphocytes (%) (Auto) 13.3 L, Monocytes (%) ( Auto) 4.0, Eosinophils (%) (Auto) 0.8, Basophils (%) (Auto) 0.2, Neutrophils # ( Auto) 9.2 H, Lymphocytes # (Auto) 1.6, Monocytes # (Auto) 0.5, Eosinophils # ( Auto) 0.1, Basophils # (Auto) 0.0, Calcium Level 8.7, Aspartate Amino Transf ( AST/SGOT) 12 L, Alanine Aminotransferase (ALT/SGPT) 16, Alkaline Phosphatase 72 , Total Bilirubin 0.3 #, Total Protein 7.0, Albumin 3.7 10/30/16 04:58 Red Blood Count 4.29, Mean Corpuscular Volume 83.7, Mean Corpuscular Hemoglobin 29.1, Mean Corpuscular Hemoglobin Concent 34.7, Red Cell Distribution Width 11.9 , Neutrophils (%) (Auto) 62.4, Lymphocytes (%) (Auto) 26.3, Monocytes (%) (Auto ) 6.2 H, Eosinophils (%) (Auto) 3.6 H, Basophils (%) (Auto) 0.2, Neutrophils # ( Auto) 5.3, Lymphocytes # (Auto) 2.2, Monocytes # (Auto) 0.5, Eosinophils # (Auto ) 0.3, Basophils # (Auto) 0.0, Calcium Level 8.0 L Microbiology Microbiology 10/29/16 Blood Culture, Received Pending 10/29/16 Blood Culture, Received Pending 10/29/16 Urine Culture, Received Pending FRANKIE GARCIA MD Oct 30, 2016 13:08
[2016-10-30] MEDS: VENLAFAXINE 75 MG PO SCH (16:21)
[2016-10-30] MEDS: cloNIDine 0.1 MG TAB PO SCH (20:44)
[2016-10-30] MEDS: zolPIDEM TARTRATE 10MG TAB PO SCH (20:45)
[2016-10-31] VITALS (7 sets, daily range): BP systolic 115–155; BP diastolic 67–85
[2016-10-31 05:26] LABS: BASO % 0.4 % (0.0-1.0); EOS # 0.3 K/mm3 (0.0-0.50); EOS % 4.5 % (0.0-3.0); LARGE UNSTAINED CELL # 0.1 K/mm3 (0.0-0.4); LYMPH # 2.1 K/mm3 (1.5-6.5); LYMPH % 29.2 % (24.0-44.0); MEAN CORPUSCULAR HEMOGLOBIN 29.5 pg (27.0-33.0); MEAN CORPUSCULAR HGB CONC 35.1 g/dl (32.0-36.5); MONO # 0.6 K/mm3 (0.0-0.8); MONO % 8.2 % (0.0-5.0); NEUTROPHILS # 4.1 K/mm3 (1.8-7.7); NEUTROPHILS % 55.7 % (36.0-66.0); PLATELET COUNT, AUTOMATED 224 k/mm3 (150-450); RED CELL DISTRIBUTION WIDTH 12.1 % (11.5-14.5); WHITE BLOOD COUNT 7.3 K/mm3 (4.0-10.0)
[2016-10-31 05:47] LABS: ALBUMIN 3.5 GM/DL (3.2-5.2); ALBUMIN/GLOBULIN RATIO 1.09 (1.00-1.93); ALKALINE PHOSPHATASE 75 U/L (45-117); ALT/SGPT 15 U/L (12-78); ANION GAP 7 MEQ/L (8-16); AST/SGOT 13 U/L (15-37); BILIRUBIN,TOTAL 0.2 MG/DL (0.2-1.0); BLOOD UREA NITROGEN 9 MG/DL (7-18); CALCIUM LEVEL 8.8 MG/DL (8.5-10.1); CARBON DIOXIDE LEVEL 29 MEQ/L (21-32); CHLORIDE LEVEL 107 MEQ/L (98-107); CREATININE FOR GFR 0.66 MG/DL (0.55-1.02); GLOMERULAR FILTRATION RATE > 60.0 (>60); GLUCOSE, FASTING 88 MG/DL (70-105); POTASSIUM SERUM 3.9 MEQ/L (3.5-5.1); SODIUM LEVEL 143 MEQ/L (136-145); TOTAL PROTEIN 6.7 GM/DL (6.4-8.2)
[2016-10-31] MEDS: GABAPENTIN 300 MG CAP PO SCH ×3 (08:32→21:54)
[2016-10-31] MEDS: VENLAFAXINE 75 MG PO SCH (08:32)
[2016-10-31] MEDS: traMADol 50 MG TAB PO SCH ×2 (08:33→21:55)
[2016-10-31] MEDS: busPIRone 5 MG TAB PO SCH ×2 (08:33→21:54)
--- NOTE | 2016-10-31 11:38 | IPNPDOC ---
Subjective Date Seen The patient was seen on 10/31/16. Subjective Chief Complaint/HPI The patient is a 21-year-old female admitted with a reason for visit of Pseudoseizures. Events since last encounter Pt denies any further seizures. States she feels tired. Denies CP, SOB, Ab pain. Constitutional: Reports: Fatigue, Denies: Chills, Fever Pulmonary: Denies: Dyspnea Cardiovascular: Denies: Chest Pain, Palpitations Gastrointestinal: Denies: Abdominal Pain, Nausea, Vomiting Neurological: Denies: Change in speech, Numbness, Seizures, Weakness Objective Physical Examination General Exam: Positive: Alert, No Acute Distress Eye Exam: Positive: EOMI, PERRLA, Negative: Sclera icteric ENT Exam: Positive: Atraumatic, Mucous membr. moist/pink Chest Exam: Positive: Clear to auscultation, Normal air movement Heart Exam: Positive: Normal S1, Normal S2, Rate Normal, Regular Rhythm Abdomen Exam: Positive: Normal bowel sounds, Soft, Negative: Tenderness Neuro Exam: Positive: Cranial Nerves 3-12 NL, Normal Speech, Normal Tone, Sensation Intact (subjective decreased sensation in feet, ankles, and hands bilaterally), Strength at 5/5 X4 ext (with encouragement) Psych Exam: Positive: Mental status NL (Appears mildly anxious and depressed), Oriented x 3, Negative: Memory Intact (patient does not remember events leading up to admission and in ED) Assessment /Plan Problems (1) Seizure Status: Acute Problem Text: 10/31 - No further seizures. Pt apparently was scheduled for LP as outpt today but pt is uncertain who ordered this. D/W attending. 10/30 - Patient is being worked up by neurology for seizures vs. pseudoseizures; she had no tongue trauma or incontinence s/p episode of tonic-clonic like movements yesterday. ED notes indicate that episodes were not typical seizures - patient maintained eye contact and they terminated with painful stimuli. However, she did have an elevated lactic acid and leukocytosis upon admission which have since resolved. They have not recurred since admission. Dr. Baker was called by the ED and did not recommend starting antiepileptics at this time. - EEG was done today and the report is pending. - Patient's nurse states patient was to receive an LP today as an outpatient - patient and her mother who is at bedside state they don't know anything about this, and there is no mention of this being ordered in Dr. De's notes or in Dr. Farfan's notes in [facility]. (2) Leukocytosis Status: Resolved Problem Text: Leukocytosis and lactic acidosis rapidly resolved without antibiotics, which suggests elevations may have been related to seizure activity. 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 Continue home venlafaxine, hydroxyzine, buspirone, clonidine, and ambien. (4) Asthma Status: Chronic Response to Treatment: Stable Problem Text: Continue home PRN albuterol. (5) Bilateral leg weakness Status: Chronic Problem Text: Patient has been following with Neuro for this and this was worked up with MRI of cervical, thoracic, and lumbar spine 09/22/2016 that showed mild disc degeneration only. Neuro exam is normal today with 5/5 strength of lower extremities. (6) Urinary retention Status: Chronic Problem Text: 10/30 - Patient reports 2 months of feeling she has difficulty voiding and incomplete voiding; she does urinate 3-4 times per day. MRI of spine done 09/22/16 does not show any spinal cord impingement per reports. Will check PVR. (7) Chronic neck pain Status: Chronic Problem Text: 10/30 - She takes flexeril, tramadol, and neurontin for this. She states she was started on tramadol 1 year ago because "I was taking massive amounts of ibuprofen and tylenol". I d/w her that tramadol can lower the seizure threshold, to which her mother responded "if you take her off of it, it could also cause seizures". As I am not convinced she is having true seizures, I will continue tramadol now but I discussed with the patient that this may need to be tapered in the future. Plan/VTE VTE Prophylaxis Ordered?: No VTE Exclusion Mechanical Proph: Low Risk for VTE (SCD and TEDs ordered) VS, I&O, 24H, Fishbone Vital Signs/I&O Vital Signs Date Time Temp Pulse Resp B/P Pulse Ox O2 Delivery O2 Flow Rate FiO2 10/31/16 08:33 18 10/31/16 08:30 Room Air 10/31/16 07:30 98.4 83 116/67 97 I&O- Last 24 Hours up to 6 AM 10/31/16 06:00 Intake Total 2160 ml Output Total 2900 ml Balance -740 ml Laboratory Data 24H LABS Laboratory Tests 2 10/31/16 05:06: Blood Urea Nitrogen 9, Creatinine 0.66, Sodium Level 143, Potassium Level 3.9, Chloride Level 107, Carbon Dioxide Level 29, Calcium Level 8.8, Aspartate Amino Transf (AST/SGOT) 13L, Alanine Aminotransferase (ALT/SGPT) 15, Alkaline Phosphatase 75, Total Bilirubin 0.2, Total Protein 6.7, Albumin 3.5, Albumin/ Globulin Ratio 1.09, Anion Gap 7L, White Blood Count 7.3, Red Blood Count 4.44, Hemoglobin 13.1, Hematocrit 37.3, Mean Corpuscular Volume 84.0, Mean Corpuscular Hemoglobin 29.5, Mean Corpuscular Hemoglobin Concent 35.1, Red Cell Distribution Width 12.1, Platelet Count 224, Neutrophils (%) (Auto) 55.7, Lymphocytes (%) (Auto) 29.2, Monocytes (%) (Auto) 8.2H, Eosinophils (%) (Auto) 4.5H, Basophils (%) (Auto) 0.4, Neutrophils # (Auto) 4.1, Lymphocytes # (Auto) 2.1, Monocytes # (Auto) 0.6, Eosinophils # (Auto) 0.3, Basophils # (Auto) 0.0, Glomerular Filtration Rate > 60.0, Large Unclassified Cells # 0.1, Large Unclassified Cells % 2.0 CBC/BMP Laboratory Tests 10/31/16 05:06 Calcium Level 8.8, Aspartate Amino Transf (AST/SGOT) 13 L, Alanine Aminotransferase (ALT/SGPT) 15, Alkaline Phosphatase 75, Total Bilirubin 0.2, Total Protein 6.7, Albumin 3.5, Red Blood Count 4.44, Mean Corpuscular Volume 84.0, Mean Corpuscular Hemoglobin 29.5, Mean Corpuscular Hemoglobin Concent 35.1 , Red Cell Distribution Width 12.1, Neutrophils (%) (Auto) 55.7, Lymphocytes (% ) (Auto) 29.2, Monocytes (%) (Auto) 8.2 H, Eosinophils (%) (Auto) 4.5 H, Basophils (%) (Auto) 0.4, Neutrophils # (Auto) 4.1, Lymphocytes # (Auto) 2.1, Monocytes # (Auto) 0.6, Eosinophils # (Auto) 0.3, Basophils # (Auto) 0.0 Microbiology Microbiology 10/29/16 Blood Culture - Preliminary, Resulted No growth after 24 hours . All specim... 10/29/16 Blood Culture - Preliminary, Resulted No growth after 24 hours . All specim... 10/29/16 Urine Culture - Final, Complete Morro Bundy Oct 31, 2016 11:38
[2016-10-31] MEDS ORDERED: LORazepam 2 MG/ML VIAL (J2060) IV PRN (19:15)
[2016-10-31] MEDS: cloNIDine 0.1 MG TAB PO SCH (21:55)
[2016-10-31] MEDS: zolPIDEM TARTRATE 10MG TAB PO SCH (21:55)
[2016-11-01 00:28] VITALS: BP 109/65
[2016-11-01 04:20] VITALS: BP 109/65
[2016-11-01 06:13] LABS: BASO % 0.2 % (0.0-1.0); EOS # 0.3 K/mm3 (0.0-0.50); EOS % 3.3 % (0.0-3.0); LARGE UNSTAINED CELL # 0.1 K/mm3 (0.0-0.4); LARGE UNSTAINED CELL % 1.6 % (0.0-4.0); LYMPH # 2.1 K/mm3 (1.5-6.5); LYMPH % 23.2 % (24.0-44.0); MEAN CORPUSCULAR HEMOGLOBIN 30.1 pg (27.0-33.0); MEAN CORPUSCULAR HGB CONC 35.5 g/dl (32.0-36.5); MEAN CORPUSCULAR VOLUME 84.7 fl (80.0-96.0); MONO # 0.6 K/mm3 (0.0-0.8); MONO % 7.3 % (0.0-5.0); NEUTROPHILS # 5.5 K/mm3 (1.8-7.7); NEUTROPHILS % 64.5 % (36.0-66.0); PLATELET COUNT, AUTOMATED 234 k/mm3 (150-450); RED CELL DISTRIBUTION WIDTH 12.2 % (11.5-14.5); WHITE BLOOD COUNT 8.6 K/mm3 (4.0-10.0)
[2016-11-01 06:29] LABS: ALBUMIN 3.5 GM/DL (3.2-5.2); ALBUMIN/GLOBULIN RATIO 1.06 (1.00-1.93); ALKALINE PHOSPHATASE 73 U/L (45-117); ALT/SGPT 16 U/L (12-78); ANION GAP 5 MEQ/L (8-16); AST/SGOT 22 U/L (15-37); BILIRUBIN,TOTAL 0.3 MG/DL (0.2-1.0); BLOOD UREA NITROGEN 10 MG/DL (7-18); CALCIUM LEVEL 8.7 MG/DL (8.5-10.1); CARBON DIOXIDE LEVEL 28 MEQ/L (21-32); CHLORIDE LEVEL 107 MEQ/L (98-107); CREATININE FOR GFR 0.67 MG/DL (0.55-1.02); GLOMERULAR FILTRATION RATE > 60.0 (>60); GLUCOSE, FASTING 90 MG/DL (70-105); POTASSIUM SERUM 3.8 MEQ/L (3.5-5.1); SODIUM LEVEL 140 MEQ/L (136-145); TOTAL PROTEIN 6.8 GM/DL (6.4-8.2)
--- NOTE | 2016-11-01 07:01 | EEG ---
DATE OF PROCEDURE: 10/30/2016 REFERRING PHYSICIAN: Dr. Tushar De DIAGNOSIS: Seizure-like spells, rule out seizures. EEG NUMBER: [id number]. HISTORY: Patient is a 21-year-old woman with seizure-like spells and tonic clonic movements. Patient does not remember her spells. There was no tongue biting or urinary incontinence. This EEG was done to rule out epileptic potential. She is currently taking Effexor, tramadol, Ambien, gabapentin, BuSpar, clonidine, etc. TECHNICAL DESCRIPTION: This digital EEG was recorded by 21 scalp, ear and two EKG electrodes and was reviewed in bipolar and referential montages following reformatting in 10-20 international electrode placement system. INTERPRETATION: Patient was noted to be in awake and drowsy states during this EEG. Resting awake background rhythm consisted of well-formed posterior dominant rhythm with anterior/posterior gradient comprising of 10 Hz alpha activity measuring 15-100 microvolts in amplitude, which was symmetric and reactive to eye opening. Low voltage and mixed frequencies were noted anteriorly. Stage I and II sleep were reviewed and were symmetric bilaterally. Hyperventilation could not be performed. Photic stimulation remained unremarkable. EKG revealed normal sinus rhythm. No focal, lateralizing or epileptiform abnormalities were seen. No clinical or electrographic seizures were recorded. CONCLUSION: This EEG in awake, drowsy states, stage I and II sleep is within normal limits.
[2016-11-01 07:30] VITALS: BP 100/62
[2016-11-01] MEDS: GABAPENTIN 300 MG CAP PO SCH (08:50)
[2016-11-01] MEDS: traMADol 50 MG TAB PO SCH (08:51)
[2016-11-01] MEDS: busPIRone 5 MG TAB PO SCH (08:51)
[2016-11-01] MEDS: VENLAFAXINE 75 MG PO SCH (08:52)
--- NOTE | 2016-11-01 09:22 | IPNPDOC ---
Subjective Date Seen The patient was seen on 11/01/16. Subjective Chief Complaint/HPI The patient is a 21-year-old female admitted with a reason for visit of Pseudoseizures. Events since last encounter Pt sleepy. Limited answers. Denies any new issues. Denies pain. Constitutional: Denies: Fever Pulmonary: Denies: Dyspnea Cardiovascular: Denies: Chest Pain Gastrointestinal: Denies: Abdominal Pain Objective Physical Examination General Exam: Positive: Alert, No Acute Distress Eye Exam: Positive: EOMI, PERRLA, Negative: Sclera icteric ENT Exam: Positive: Atraumatic, Mucous membr. moist/pink Chest Exam: Positive: Clear to auscultation, Normal air movement Heart Exam: Positive: Normal S1, Normal S2, Rate Normal, Regular Rhythm Abdomen Exam: Positive: Normal bowel sounds, Soft, Negative: Tenderness Neuro Exam: Positive: Normal Speech, Normal Tone, Strength at 5/5 X4 ext Psych Exam: Positive: Memory Intact (patient does not remember events leading up to admission and in ED), Mental status NL (Appears mildly anxious and depressed), Oriented x 3 Assessment /Plan Problems (1) Seizure Status: Acute Problem Text: 11/01 - Seizure/pseudoseizure yesterday. Pt seen by Dr Baker who recommends transfer to [facility] for video EEG workup. JFW: Nonepileptic seizures, had an event last night with several non-epileptic signs (seen by Dr Baker/Neuro during event--purposeful movement, responded to cold water sprinkle). We discussed case after her event. he advises video EEG ) 10/31 - No further seizures. Pt apparently was scheduled for LP as outpt today but pt is uncertain who ordered this. D/W attending. 10/30 - Patient is being worked up by neurology for seizures vs. pseudoseizures; she had no tongue trauma or incontinence s/p episode of tonic-clonic like movements yesterday. ED notes indicate that episodes were not typical seizures - patient maintained eye contact and they terminated with painful stimuli. However, she did have an elevated lactic acid and leukocytosis upon admission which have since resolved. They have not recurred since admission. Dr. Baker was called by the ED and did not recommend starting antiepileptics at this time. - EEG was done today and the report is pending. - Patient's nurse states patient was to receive an LP today as an outpatient - patient and her mother who is at bedside state they don't know anything about this, and there is no mention of this being ordered in Dr. De's notes or in Dr. Farfan's notes in [facility]. (2) Leukocytosis Status: Resolved Problem Text: Leukocytosis and lactic acidosis rapidly resolved without antibiotics, which suggests elevations may have been related to seizure activity. 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 Continue home venlafaxine, hydroxyzine, buspirone, clonidine, and ambien. (4) Asthma Status: Chronic Response to Treatment: Stable Problem Text: Continue home PRN albuterol. (5) Bilateral leg weakness Status: Chronic Problem Text: 11/01 - Seen by Neurology. Patient has been following with Neuro for this and this was worked up with MRI of cervical, thoracic, and lumbar spine 09/22/2016 that showed mild disc degeneration only. Neuro exam is normal today with 5/5 strength of lower extremities. (6) Urinary retention Status: Chronic Problem Text: 10/30 - Patient reports 2 months of feeling she has difficulty voiding and incomplete voiding; she does urinate 3-4 times per day. MRI of spine done 09/22/16 does not show any spinal cord impingement per reports. Will check PVR. (7) Chronic neck pain Status: Chronic Problem Text: 10/30 - She takes flexeril, tramadol, and neurontin for this. She states she was started on tramadol 1 year ago because "I was taking massive amounts of ibuprofen and tylenol". I d/w her that tramadol can lower the seizure threshold, to which her mother responded "if you take her off of it, it could also cause seizures". As I am not convinced she is having true seizures, I will continue tramadol now but I discussed with the patient that this may need to be tapered in the future. Plan/VTE VTE Prophylaxis Ordered?: No VTE Exclusion Mechanical Proph: Low Risk for VTE (SCD and TEDs ordered) VS, I&O, 24H, Fishbone Vital Signs/I&O Vital Signs Date Time Temp Pulse Resp B/P Pulse Ox O2 Delivery O2 Flow Rate FiO2 3/29/17 08:51 16 Room Air 11/01/16 07:30 98.7 77 100/62 98 10/31/16 19:55 2.0 I&O- Last 24 Hours up to 6 AM 11/01/16 06:00 Intake Total 780 ml Balance 780 ml Laboratory Data 24H LABS Laboratory Tests 2 10/31/16 17:15: Bedside Glucose (Misc Panel) 145H 10/31/16 18:55: Prolactin 54.9 11/01/16 05:44: Blood Urea Nitrogen 10, Creatinine 0.67, Sodium Level 140, Potassium Level 3.8, Chloride Level 107, Carbon Dioxide Level 28, Calcium Level 8.7, Aspartate Amino Transf (AST/SGOT) 22, Alanine Aminotransferase (ALT/SGPT) 16, Alkaline Phosphatase 73, Total Bilirubin 0.3, Total Protein 6.8, Albumin 3.5, Albumin/ Globulin Ratio 1.06, Anion Gap 5L, White Blood Count 8.6, Red Blood Count 4.60, Hemoglobin 13.8, Hematocrit 38.9, Mean Corpuscular Volume 84.7, Mean Corpuscular Hemoglobin 30.1, Mean Corpuscular Hemoglobin Concent 35.5, Red Cell Distribution Width 12.2, Platelet Count 234, Neutrophils (%) (Auto) 64.5, Lymphocytes (%) (Auto) 23.2L, Monocytes (%) (Auto) 7.3H, Eosinophils (%) (Auto) 3.3H, Basophils (%) (Auto) 0.2, Neutrophils # (Auto) 5.5, Lymphocytes # (Auto) 2.1, Monocytes # (Auto) 0.6, Eosinophils # (Auto) 0.3, Basophils # (Auto) 0.0, Glomerular Filtration Rate > 60.0, Large Unclassified Cells # 0.1, Large Unclassified Cells % 1.6 CBC/BMP Laboratory Tests 11/01/16 05:44 Calcium Level 8.7, Aspartate Amino Transf (AST/SGOT) 22, Alanine Aminotransferase (ALT/SGPT) 16, Alkaline Phosphatase 73, Total Bilirubin 0.3, Total Protein 6.8, Albumin 3.5, Red Blood Count 4.60, Mean Corpuscular Volume 84.7, Mean Corpuscular Hemoglobin 30.1, Mean Corpuscular Hemoglobin Concent 35.5 , Red Cell Distribution Width 12.2, Neutrophils (%) (Auto) 64.5, Lymphocytes (% ) (Auto) 23.2 L, Monocytes (%) (Auto) 7.3 H, Eosinophils (%) (Auto) 3.3 H, Basophils (%) (Auto) 0.2, Neutrophils # (Auto) 5.5, Lymphocytes # (Auto) 2.1, Monocytes # (Auto) 0.6, Eosinophils # (Auto) 0.3, Basophils # (Auto) 0.0 Microbiology Microbiology 10/29/16 Blood Culture - Preliminary, Resulted No Growth after 48 hours. All Specime... 10/29/16 Blood Culture - Preliminary, Resulted No Growth after 48 hours. All Specime... 10/29/16 Urine Culture - Final, Complete Morro Bundy Nov 01, 2016 09:22 Jethro Iqbal MD Nov 01, 2016 11:00
[2016-11-01 12:39] VITALS: BP 122/64
[2016-11-01] MEDS ORDERED: SLF 3 ML SYR IV SCH (14:00)
[2016-11-01] MEDS ORDERED: SLF 3 ML SYR IV PRN (14:00)
[2016-11-01 14:52] VITALS: BP 121/79
--- NOTE | 2016-11-01 15:02 | DSES ---
DATE OF ADMISSION: 10/29/2016 DATE OF DISCHARGE: Transferred to [facility] -- neurology service for video EEG monitoring. ACCEPTING PHYSICIAN: Dr. Horne PRIMARY CARE PROVIDER: Dr. Tushar De TREE TOPPER: Dr. Baker, neurology service. PRINCIPAL DIAGNOSIS: Nonepileptic seizures. HISTORY: Leticia Polo is a 21-year-old. She has been having intermittent episodes of tonic clonic movements that were felt to be seizures. She has a past history of posttraumatic stress disorder (PTSD), major depressive disorder and asthma, as well as anxiety. I reviewed her office chart. She established care with Dr. De in August 2016. At that time, she was having problems with neck pain and a loss of feeling from the neck down. MRI of the cervical spine on 09/23/2016 showed normal signal of visualized spinal cord, some disc bulging, posterior osteophyte formation at C5-C6 with mild narrowing of the spinal canal. MRI of the thoracic spine on 09/22/2016 showed multi level spondylosis, degenerative disc disease, more prominent T7-T8, normal signal of the spinal cord. MRI of the lumbosacral spine also on 09/22/2016 was unremarkable. MRI of the brain done on 10/27/2016 was normal. She was seen by Dr. Margarita Farfan at [facility] on 10/17/2016. She notes that the patient had previously been there on 10/22/2015 secondary to neck pain (those records are not available to our office). Was seen on 10/17/2016 for episodes where she had become unresponsive with twitching of her arms. She was found by her mother unresponsive, eyes open. Taken by emergency medical services (EMS) and became responsive when she was about to be intubated in the emergency room. Per mother, she was unresponsive for approximately 2 hours. Was discharged from the emergency room and followed up with neurology. They ordered an EEG, which was subsequently done and returned negative. Had planned followup in 6 weeks. The patient was admitted to [facility] on 10/29/2016 after having an episode where she was having tonic clonic seizure movements in the arms and legs without fecal or urinary incontinence. No tongue trauma. History and physical lacks a lot of detail of the event that occurred, but she was admitted. Consultation was placed from Dr. Baker. He saw the patient last night. He was actually on the floor when she had one of her events, so it was witnessed by neurologic process consultant. He noted that she was having tonic clonic movements of the arms and legs associated with arching of the back and stiffening. She had some non epileptic responses, including withdrawal of extremity with noxious stimulus and grimacing response to cold water sprinkling on her face. At that point, he advised that she not receive any further epileptic medication and be transferred to [facility] for video EEG monitoring. I called the transfer center today and they have a bed. I spoke to Dr. Horne. We discussed the case and she accepted the patient. PHYSICAL EXAMINATION: Today, the patient is alert, conversant, no distress. Blood pressure is 122/64, pulse 77 to 130, respiratory rate 24, pulse oximetry 97%. Telemetry showed strict sinus rhythm. LUNGS: Clear. HEART: Regular. ABDOMEN: Soft, nontender. EXTREMITIES: Normal strength, reflexes in arms and legs. Normal sensation. NEUROLOGIC: Cranial nerves II through XII intact. LABORATORY DATA: CBC is normal. Electrolytes unremarkable. She had a TSH as an outpatient on 09/22/2016 and 10/20/2016 and they were both normal so that was not repeated. Normal B12 level on 09/25/2016. Toxicology on admission shows positive for benzodiazepine, consistent with her receiving Ativan in the emergency room. DISPOSITION: The patient is discharged in . As noted above, she had a MRI scan of the brain on 10/27/[address] of the head on admission was normal. Chest x-ray was normal. EEG was normal. Lab work is unremarkable. Current medications are: - venlafaxine ER 225 mg daily - Flexeril 5 mg three times a day as needed for muscle spasms - Atarax 15 mg every six hours as needed for anxiety - BuSpar 5 mg twice a day - clonidine 0.1 mg at night - Neurontin 900 mg three times a day - tramadol, which was discontinued today - Ambien 10 mg at night Her activity is no driving and restrictions as necessary until the basis of her events are determined. No added salt diet. She accepts transfer. Case was discussed with the patient and patient's mother with the patient's permission. Appreciate Neurology Department at [facility] for accepting this patient for video EEG monitoring. She will resume her primary care with Dr. De and neurologic care with Dr. Margarita Farfan after discharge.
== END 2016-11-01 15:40 | disposition short-term general hospital (02) ==
LOC: EDBD 17:35 → M ED 18:07 → M ED INP 21:14 → M PCU 22:20
PROVIDERS: ADMIT Internal Medicine; ATTEND Family Medicine
DX: R56.9 Unspecified convulsions (principal); F43.10 Post-traumatic stress disorder, unspecified; J45.909 Unspecified asthma, uncomplicated; F41.9 Anxiety disorder, unspecified; Z79.899 Other long term (current) drug therapy; D72.829 Elevated white blood cell count, unspecified; E87.2 Acidosis; Z87.891 Personal history of nicotine dependence; Z88.8 Allergy status to other drugs, medicaments and biological substances; Z91.013 Allergy to seafood
CPT/HCPCS: 36415; 51701; 70450; 71020; 80053; 80306; 81001; 82550; 82803; 83605; 83735; 84100; 84146; 84703; 85025; 86140; 87040; 87086; 96374; 99285; J2060

== ENCOUNTER → 2017-02-07 | Outpatient (REF) | payer OTHER ==
[~2017-02-07] MED LIST changes: +CYCL10TA PO; +GABA-283 PO; -HYDR-4274 PO; +HYDR50TA70 PO; +ROZE8TAB16 PO; -ROZE8TAB9 PO
== END ==
LOC: M SFHCPLAZ 16:23
PROVIDERS: ATTEND Family Medicine
DX: F41.8 Other specified anxiety disorders (principal)

== ENCOUNTER 2017-04-26 09:32 | Outpatient (RCR) | payer OTHER | END 2017-05-05 | LOC: M PT 09:32 | PROVIDERS: ATTEND Family Medicine | DX: Z51.89 Encounter for other specified aftercare (principal); M54.2 Cervicalgia ==

== ENCOUNTER → 2017-05-22 | Outpatient (REF) | payer OTHER, SELFPAY ==
[~2017-05-22] MED LIST changes: +KEFL500C17 PO; +MIRA0.254 PO; +ZOLO100T PO
[2017-05-22 12:12] LABS: BASO % 0.3 % (0.0-1.0); EOS # 0.1 10^3/uL (0.0-0.50); EOS % 1.2 % (0.0-3.0); IMMATURE GRANULOCYTE % 0.5 % (0-0); LYMPH # 1.6 10^3/uL (1.5-6.5); MEAN CORPUSCULAR HEMOGLOBIN 26.5 pg (27.0-33.0); MEAN CORPUSCULAR HGB CONC 33.1 g/dl (32.0-36.5); MEAN CORPUSCULAR VOLUME 80.1 fl (80.0-96.0); MONO # 0.6 10^3/uL (0.0-0.8); MONO % 6.6 % (0.0-5.0); NEUTROPHILS # 6.2 10^3/uL (1.8-7.7); NEUTROPHILS % 72.4 % (36.0-66.0); PLATELET COUNT, AUTOMATED 293 10^3/uL (150-450); WHITE BLOOD COUNT 8.6 10^3/uL (4.0-10.0)
[2017-05-22 13:11] LABS: VITAMIN B12 LEVEL 381 PG/ML (247-911)
[2017-05-22 14:02] LABS: ALBUMIN 3.5 GM/DL (3.2-5.2); ALBUMIN/GLOBULIN RATIO 1.03 (1.00-1.93); ALKALINE PHOSPHATASE 78 U/L (45-117); ALT/SGPT 17 U/L (12-78); ANION GAP 8 MEQ/L (8-16); AST/SGOT 13 U/L (15-37); BILIRUBIN,TOTAL 0.2 MG/DL (0.2-1.0); BLOOD UREA NITROGEN 6 MG/DL (7-18); CALCIUM LEVEL 8.8 MG/DL (8.5-10.1); CARBON DIOXIDE LEVEL 26 MEQ/L (21-32); CHLORIDE LEVEL 105 MEQ/L (98-107); CREATININE FOR GFR 0.65 MG/DL (0.55-1.02); GLOMERULAR FILTRATION RATE > 60.0 (>60); GLUCOSE, FASTING 88 MG/DL (70-105); POTASSIUM SERUM 4.2 MEQ/L (3.5-5.1); SODIUM LEVEL 139 MEQ/L (136-145); TOTAL PROTEIN 6.9 GM/DL (6.4-8.2)
[2017-05-25 00:06] LABS: ACETYLCHOLINE RCPTOR BINDING A 0.08 nmol/L (0.00-0.24)
== END ==
LOC: M SFHCPLAZ 10:31
PROVIDERS: ATTEND Family Medicine
DX: M62.81 Muscle weakness (generalized) (principal); F39 Unspecified mood [affective] disorder; G62.9 Polyneuropathy, unspecified

== ENCOUNTER → 2017-05-22 | Outpatient (CLI) | payer OTHER, SELFPAY ==
--- NOTE | 2017-05-23 04:36 | REP ---
Clinical: Cervicalgia and back pain. Technique: AP, lateral, swimmers views of the thoracic spine. Findings: Alignment and kyphosis maintained. No acute fracture / compression injury or subluxation. Very subtle endplate sclerosis and anterior spurring with minimal disc space narrowing suggested at T7-8 and T8-9. No significant or obvious congenital abnormalities are appreciated. Paravertebral soft tissues are normal. Impression: Cannot exclude very mild degenerative changes at T7-8, T8-9. Signed by José Luis Zimmer MD 05/23/2017 04:28 A
--- NOTE | 2017-05-23 04:59 | REP ---
Clinical: Cervicalgia. Technique: AP, lateral, bilateral oblique, and open-mouth views. Findings: Alignment and lordosis is maintained. There is no evidence for acute fracture / compression injury or subluxation. No significant degenerative changes are appreciated. Oblique views demonstrate patent neural foramen. Open mouth view demonstrates normal C1-C2 articulation and odontoid process. Impression: Normal cervical spine series. Signed by José Luis Zimmer MD 05/23/2017 04:50 A
== END ==
LOC: M RAD 11:36
PROVIDERS: ATTEND Family Medicine
DX: M51.34 Other intervertebral disc degeneration, thoracic region (principal)

== ENCOUNTER → 2017-06-05 | Outpatient (REF) | payer OTHER ==
[2017-06-05 12:03] LABS: TOTAL PROTEIN 7.4 GM/DL (6.4-8.2)
[2017-06-06 09:59] LABS: ALBUMIN 4.12 GM/DL (3.29-5.55); ALBUMIN % 55.7 % (55.8-66.1); GAMMA GLOBULIN % 11.7 % (11.1-18.8)
[2017-06-12 14:17] LABS: ANTI HU ANTIBODY <1:10 Titer (.); ANTI MAG LEVEL <1:10 Titer (.); ANTI-ASIALO GM1 (IgG) <1:100 titer (.); ANTI-ASIALO GM1 (IgM) <1:100 titer (.); ANTI-GD1a (IgG) <1:100 titer (.); ANTI-GD1a (IgM) <1:100 titer (.); ANTI-GD1b (IgG) <1:100 titer (.); ANTI-GD1b (IgM) <1:100 titer (.); ANTI-GM1 (IgG) <1:100 titer (.); ANTI-GM1 (IgM) <1:100 titer (.)
== END ==
LOC: M SFHCPLAZ 08:37
PROVIDERS: ATTEND Family Medicine
DX: R29.898 Other symptoms and signs involving the musculoskeletal system (principal); G62.9 Polyneuropathy, unspecified

== ENCOUNTER 2017-06-15 08:09 | Emergency (ER) | payer OTHER ==
[~2017-06-15] VITALS: Ht 152.4 cm; Wt 63.6 kg
[~2017-06-15 08:09] MED LIST changes: -KEFL500C17 PO; -MIRA0.254 PO; -ZOLO100T PO
[2017-06-15] MEDS ORDERED: ZOLO100T PO (08:19)
[2017-06-15] MEDS ORDERED: MIRA0.254 PO (08:19)
[2017-06-15] MEDS ORDERED: MORPHINE 4 MG/ML 1ML SYRINGE IV PRN (08:30)
[2017-06-15] MEDS ORDERED: NS 1,000 ML IV ONE (08:30)
[2017-06-15] MEDS ORDERED: ONDANSETRON 4MG/2ML VIAL (J2405) IV ONE (08:30)
[2017-06-15 09:07] LABS: BASO % 0.4 % (0.0-1.0); EOS # 0.1 10^3/uL (0.0-0.50); IMMATURE GRANULOCYTE % 0.6 % (0-0); LYMPH # 1.5 10^3/uL (1.5-6.5); LYMPH % 18.4 % (24.0-44.0); MEAN CORPUSCULAR HEMOGLOBIN 26.9 pg (27.0-33.0); MEAN CORPUSCULAR HGB CONC 33.5 g/dl (32.0-36.5); MEAN CORPUSCULAR VOLUME 80.4 fl (80.0-96.0); MONO # 0.6 10^3/uL (0.0-0.8); MONO % 7.6 % (0.0-5.0); PLATELET COUNT, AUTOMATED 295 10^3/uL (150-450); RED CELL DISTRIBUTION WIDTH 13.8 % (11.5-14.5); WHITE BLOOD COUNT 8.3 10^3/uL (4.0-10.0)
[2017-06-15 09:29] LABS: ALBUMIN 3.5 GM/DL (3.2-5.2); ALBUMIN/GLOBULIN RATIO 1.06 (1.00-1.93); ALKALINE PHOSPHATASE 73 U/L (45-117); ALT/SGPT 18 U/L (12-78); ANION GAP 7 MEQ/L (8-16); AST/SGOT 20 U/L (7-37); BILIRUBIN,DIRECT < 0.1 MG/DL (0.0-0.2); BILIRUBIN,TOTAL 0.3 MG/DL (0.2-1.0); BLOOD UREA NITROGEN 8 MG/DL (7-18); CALCIUM LEVEL 8.8 MG/DL (8.5-10.1); CARBON DIOXIDE LEVEL 26 MEQ/L (21-32); CHLORIDE LEVEL 106 MEQ/L (98-107); CREATININE FOR GFR 0.65 MG/DL (0.55-1.02); GLOMERULAR FILTRATION RATE > 60.0 (>60); GLUCOSE, FASTING 99 MG/DL (70-105); POTASSIUM SERUM 4.4 MEQ/L (3.5-5.1); SODIUM LEVEL 139 MEQ/L (136-145); TOTAL PROTEIN 6.8 GM/DL (6.4-8.2)
[2017-06-15] MEDS ORDERED: ISOVUE-370 76% 100ML VIAL (Q9967) As Ordered ONE (09:36)
[2017-06-15] MEDS ORDERED: KEFL500C17 PO (10:21)
--- NOTE | 2017-06-15 10:24 | REP ---
CT abdomen and pelvis with IV but without oral contrast: History: Periumbilical abdominal pain radiating to right lower quadrant. CT contrast dose: 100 ml of Isovue 370 is administered intravenously. No comparison study. Findings: Preliminary digital lens engraver radiograph is unremarkable. The lung bases are clear. The liver and the spleen are normal in size, homogeneous in texture. There are two tiny accessory splenules. No adrenal lesion is seen on either side. Gallbladder and the pancreas are unremarkable. The kidneys enhance symmetrically and are morphologically intact. No retroperitoneal mass or adenopathy is observed. A normal appendix is seen in the right lower quadrant. The uterus is tipped to the left. There is a thin sliver of cul-de-sac fluid. No ovarian abnormality is seen. No abdominal wall defect is observed. Urinary bladder is intact. Small and large intestinal bowel loops are unremarkable. No bony destructive lesion is seen. Impression: Normal CT study of the abdomen and pelvis with IV contrast. Normal appendix seen in the right lower quadrant. Signed by Zohaib Thompson MD 06/15/2017 01:12 P
[2017-06-15 10:27] VITALS: BP 105/60
== END 2017-06-15 10:34 | disposition home or self-care (01) ==
LOC: M ED 08:09
DX: N30.90 Cystitis, unspecified without hematuria (principal); J45.909 Unspecified asthma, uncomplicated; F33.9 Major depressive disorder, recurrent, unspecified; F43.10 Post-traumatic stress disorder, unspecified; R56.9 Unspecified convulsions; Z79.899 Other long term (current) drug therapy; Z88.8 Allergy status to other drugs, medicaments and biological substances; Z91.013 Allergy to seafood
CPT/HCPCS: 74177; 80048; 80076; 81001; 81025; 83605; 83690; 85025; 87086; 96374; 96375; 99284; J2405; Q9967

== ENCOUNTER → 2017-06-26 | Outpatient (REF) | payer OTHER ==
[~2017-06-26] MED LIST changes: +KEFL500C17 PO; +MIRA0.254 PO; +ZOLO100T PO
[2017-06-26 15:44] LABS: BACTERIA, URINE MOD AMOUNT; HYALINE CAST, URINE NONE SEEN /lpf (0-1); MICROSCOPIC EXAM PERFORMED; RBC, URINE 0-1 /hpf (0-3); SQUAMOUS EPITHELIAL CELL URINE LARGE AMOUNT /hpf (SMALL AMT); WBC, URINE 0-1 /hpf (0-3)
== END ==
LOC: M SFHCPLAZ 12:08
PROVIDERS: ATTEND Family Medicine
DX: G62.9 Polyneuropathy, unspecified (principal); R77.8 Other specified abnormalities of plasma proteins

== ENCOUNTER → 2017-07-09 | Outpatient (REF) | payer OTHER | LOC: M SFHCPLAZ 11:52 | PROVIDERS: ATTEND Family Medicine | DX: R77.8 Other specified abnormalities of plasma proteins (principal) ==

== ENCOUNTER → 2017-07-16 | Outpatient (CLI) | payer OTHER ==
[2017-07-16 13:21] LABS: BASO % 0.1 % (0.0-1.0); EOS # 0.1 10^3/uL (0.0-0.50); EOS % 0.3 % (0.0-3.0); IMMATURE GRANULOCYTE % 0.5 % (0-0); LYMPH # 0.9 10^3/uL (1.5-6.5); LYMPH % 5.6 % (24.0-44.0); MEAN CORPUSCULAR HEMOGLOBIN 27.6 pg (27.0-33.0); MEAN CORPUSCULAR HGB CONC 33.3 g/dl (32.0-36.5); MEAN CORPUSCULAR VOLUME 82.7 fl (80.0-96.0); MONO % 6.7 % (0.0-5.0); NEUTROPHILS # 13.4 10^3/uL (1.8-7.7); NEUTROPHILS % 86.8 % (36.0-66.0); PLATELET COUNT, AUTOMATED 250 10^3/uL (150-450); WHITE BLOOD COUNT 15.5 10^3/uL (4.0-10.0)
[2017-07-16 13:40] LABS: ANION GAP 11 MEQ/L (8-16); BLOOD UREA NITROGEN 6 MG/DL (7-18); CALCIUM LEVEL 9.2 MG/DL (8.5-10.1); CARBON DIOXIDE LEVEL 22 MEQ/L (21-32); CHLORIDE LEVEL 102 MEQ/L (98-107); GLOMERULAR FILTRATION RATE > 60.0 (>60); GLUCOSE, FASTING 126 MG/DL (70-105); POTASSIUM SERUM 4.1 MEQ/L (3.5-5.1); SODIUM LEVEL 135 MEQ/L (136-145)
== END ==
LOC: M WUC 09:38
PROVIDERS: ATTEND Physician Assistant
DX: R50.9 Fever, unspecified (principal); R51 Headache

== ENCOUNTER → 2017-08-07 | Outpatient (REF) | payer OTHER ==
[2017-08-07 14:05] LABS: C REACTIVE PROTEIN QUANTITATIV 2.05 MG/DL (0.00-0.30); FREE T4 0.98 NG/DL (0.76-1.46)
== END ==
LOC: M SFHCPLAZ 10:41
DX: G62.9 Polyneuropathy, unspecified (principal); M62.89 Other specified disorders of muscle

== ENCOUNTER → 2017-08-09 | Outpatient (CLI) | payer OTHER | LOC: M RAD 10:23 | DX: G62.9 Polyneuropathy, unspecified (principal); M47.812 Spondylosis without myelopathy or radiculopathy, cervical region | CPT/HCPCS: 72141 ==

== ENCOUNTER → 2017-08-16 | Outpatient (CLI) | payer OTHER | LOC: M RAD 10:21 | DX: G60.9 Hereditary and idiopathic neuropathy, unspecified (principal) | CPT/HCPCS: 70551 ==

== ENCOUNTER → 2017-09-04 | Outpatient (REF) | payer OTHER ==
[2017-09-04 12:05] LABS: COMPLEMENT C4 24.5 MG/DL (10-40)
[2017-09-04 12:05] LABS: COMPLEMENT C3 176 MG/DL (90-180)
== END ==
LOC: M SFHCPLAZ 10:25
DX: G62.9 Polyneuropathy, unspecified (principal); M47.22 Other spondylosis with radiculopathy, cervical region

== ENCOUNTER → 2017-09-27 | Outpatient (REF) | payer OTHER ==
[2017-09-27 13:37] LABS: REASON FOR REVIEW OTHER; SLIDE REVIEW Report; SOURCE PERIPHERAL SMEAR
[2017-09-27 13:49] LABS: CPK CREATINE PHOSPHOKINASE 103 U/L (26-192); MB/CK RELATIVE INDEX 0.97 (< OR =4)
[2017-09-29 00:06] LABS: ANA (HEP2) Positive (.)
== END ==
LOC: M SFHCPLAZ 11:00
DX: M62.89 Other specified disorders of muscle (principal); G62.9 Polyneuropathy, unspecified
CPT/HCPCS: 82553

== ENCOUNTER 2017-10-10 08:58 | Emergency (ER) | payer OTHER ==
[2017-10-10] MEDS: METOCLOPRAMIDE INJ 10MG/2ML VIAL (J2765) IM (09:37)
[2017-10-10] MEDS: KETOROLAC 30 MG/ML VIAL (J1885) IM (09:37)
[2017-10-10] MEDS: diphenhydrAMINE INJ 50MG/ML VIAL (J1200) IM (09:37)
== END 2017-10-10 10:06 | disposition home or self-care (01) ==
LOC: M ED 08:58
DX: R51 Headache (principal); R11.2 Nausea with vomiting, unspecified; M54.2 Cervicalgia; Z87.891 Personal history of nicotine dependence; Z79.899 Other long term (current) drug therapy; Z79.891 Long term (current) use of opiate analgesic
CPT/HCPCS: J1200

== ENCOUNTER 2017-10-11 20:25 | Emergency (ER) | payer OTHER ==
[2017-10-11] MEDS: METOCLOPRAMIDE INJ 10MG/2ML VIAL (J2765) IV (23:40)
[2017-10-11] MEDS: diphenhydrAMINE INJ 50MG/ML VIAL (J1200) IV (23:40)
== END 2017-10-12 00:54 | disposition home or self-care (01) ==
LOC: M ED 10-12 00:54
DX: G43.909 Migraine, unspecified, not intractable, without status migrainosus (principal); R56.9 Unspecified convulsions; Z79.899 Other long term (current) drug therapy; Z88.8 Allergy status to other drugs, medicaments and biological substances; Z91.013 Allergy to seafood; Z87.891 Personal history of nicotine dependence
CPT/HCPCS: J1200

== ENCOUNTER → 2017-11-19 | Outpatient (REF) | payer OTHER ==
[2017-11-20 12:23] LABS: APPEARANCE, URINE CLOUDY (CLEAR); BACTERIA, URINE AUTO 2+ (NEGATIVE); BILIRUBIN, URINE AUTO NEGATIVE (NEGATIVE); BLOOD, URINE BLOOD NEGATIVE (NEGATIVE); COLOR, URINE YELLOW (YELLOW); GLUCOSE, URINE (UA) AUTO NEGATIVE (NEGATIVE); KETONE, URINE AUTO NEGATIVE (NEGATIVE); LEUKOCYTE ESTERASE, URINE AUTO 1+ (NEGATIVE); MUCUS, URINE SMALL (NEGATIVE); NITRITE, URINE AUTO NEGATIVE (NEGATIVE); PROTEIN, URINE AUTO NEGATIVE (NEGATIVE); RBC, URINE AUTO 3 /HPF (0-3); SPECIFIC GRAVITY URINE AUTO 1.029 (1.002-1.035); SQUAMOUS EPITHELIAL CELL UR AU 19 /HPF (0-6); UROBILINOGEN, URINE AUTO 0.2 mg/dL (0.0-2.0); WBC, URINE AUTO 5 /HPF (0-3)
== END ==
LOC: M SFHCPLAZ 11:48
DX: N39.0 Urinary tract infection, site not specified (principal)
CPT/HCPCS: 81001

== ENCOUNTER → 2017-11-20 | Outpatient (REF) | payer OTHER ==
[2017-11-20 14:35] LABS: AMORPHOUS SEDIMENT SMALL (NEGATIVE); APPEARANCE, URINE TURBID (CLEAR); BACTERIA, URINE AUTO 1+ (NEGATIVE); BILIRUBIN, URINE AUTO NEGATIVE (NEGATIVE); BLOOD, URINE BLOOD NEGATIVE (NEGATIVE); COLOR, URINE YELLOW (YELLOW); GLUCOSE, URINE (UA) AUTO NEGATIVE (NEGATIVE); KETONE, URINE AUTO NEGATIVE (NEGATIVE); LEUKOCYTE ESTERASE, URINE AUTO TRACE (NEGATIVE); MUCUS, URINE SMALL (NEGATIVE); NITRITE, URINE AUTO NEGATIVE (NEGATIVE); PROTEIN, URINE AUTO NEGATIVE (NEGATIVE); RBC, URINE AUTO 1 /HPF (0-3); SQUAMOUS EPITHELIAL CELL UR AU 5 /HPF (0-6); UROBILINOGEN, URINE AUTO 0.2 mg/dL (0.0-2.0); WBC, URINE AUTO 3 /HPF (0-3)
== END ==
LOC: M SFHCPLAZ 13:25
DX: N39.0 Urinary tract infection, site not specified (principal); R10.819 Abdominal tenderness, unspecified site

== ENCOUNTER → 2017-11-20 | Outpatient (REF) | payer OTHER ==
[2017-11-20 11:42] LABS: BASO # 0.1 10^3/uL (0.0-0.2); BASO % 0.5 % (0.0-1.0); EOS # 0.2 10^3/uL (0.0-0.50); HEMATOCRIT 43.1 % (36.0-47.0); HEMOGLOBIN 14.4 g/dl (12.0-15.5); IMMATURE GRANULOCYTE % 0.7 % (0-3.0); LYMPH % 18.9 % (24.0-44.0); MEAN CORPUSCULAR HGB CONC 33.4 g/dl (32.0-36.5); MEAN CORPUSCULAR VOLUME 83.7 fl (80.0-96.0); MONO # 0.8 10^3/uL (0.0-0.8); MONO % 7.6 % (0.0-5.0); NEUTROPHILS # 7.5 10^3/uL (1.8-7.7); NEUTROPHILS % 70.3 % (36.0-66.0); PLATELET COUNT, AUTOMATED 289 10^3/uL (150-450); RED BLOOD COUNT 5.15 10^6/uL (4.00-5.40); RED CELL DISTRIBUTION WIDTH 12.7 % (11.5-14.5); WHITE BLOOD COUNT 10.7 10^3/uL (4.0-10.0)
== END ==
LOC: M SFHCPLAZ 09:43
DX: R10.819 Abdominal tenderness, unspecified site (principal); N39.0 Urinary tract infection, site not specified

== ENCOUNTER → 2017-11-22 | Outpatient (CLI) | payer OTHER | LOC: M RAD 15:27 | DX: R10.819 Abdominal tenderness, unspecified site (principal) | CPT/HCPCS: 76775 ==

== ENCOUNTER → 2017-11-26 | Outpatient (REF) | payer OTHER ==
[2017-11-27 12:33] LABS: BACTERIA, URINE SMALL AMOUNT; HYALINE CAST, URINE NONE SEEN /lpf (0-1); MICROSCOPIC EXAM PERFORMED; RBC, URINE 0-1 /hpf (0-3); SQUAMOUS EPITHELIAL CELL URINE SMALL AMOUNT /hpf (SMALL AMT); WBC, URINE NONE SEEN /hpf (0-3)
== END ==
LOC: M SFHCPLAZ 11-27 11:25
DX: R82.90 Unspecified abnormal findings in urine (principal)
CPT/HCPCS: 81015

== ENCOUNTER → 2017-11-27 | Outpatient (REF) | payer OTHER | LOC: M SFHCPLAZ 09:26 | DX: R10.819 Abdominal tenderness, unspecified site (principal); R68.89 Other general symptoms and signs | CPT/HCPCS: 82533 ==

== ENCOUNTER → 2017-11-29 | Outpatient (REF) | payer OTHER | LOC: M SFHCPLAZ 11:39 | DX: R68.89 Other general symptoms and signs (principal) ==

== ENCOUNTER → 2017-12-01 | Outpatient (CLI) | payer OTHER | LOC: M WUC 08:23 | DX: R10.819 Abdominal tenderness, unspecified site (principal) | CPT/HCPCS: 74018 ==

== ENCOUNTER → 2017-12-14 | Outpatient (REF) | payer OTHER ==
[2017-12-14 12:37] LABS: PROLACTIN 3.2 NG/ML
[2017-12-14 13:07] LABS: ESTIMATED AVERAGE GLUCOSE 120 MG/DL (60-110); HEMOGLOBIN A1c 5.8 %
[2017-12-16 00:06] LABS: ADRENOCORTICOTROPHIC HORMONE 8.9 pg/mL (7.2-63.3)
== END ==
LOC: M SFHCPLAZ 11:09
DX: R68.89 Other general symptoms and signs (principal); Z13.1 Encounter for screening for diabetes mellitus
CPT/HCPCS: 84146

== ENCOUNTER → 2017-12-17 | Outpatient (REF) | payer OTHER | LOC: M SFHCPLAZ 11:54 | DX: R68.89 Other general symptoms and signs (principal) ==

== ENCOUNTER → 2017-12-21 | Outpatient (REF) | payer OTHER ==
[2017-12-21 12:57] LABS: CORTISOL AM 2.2 UG/DL (4.3-22.4)
== END ==
LOC: M LAB REF 11:34
DX: E27.9 Disorder of adrenal gland, unspecified (principal)

== ENCOUNTER → 2017-12-22 | Outpatient (CLI) | payer OTHER | LOC: M WUC 16:20 | DX: M25.531 Pain in right wrist (principal) | CPT/HCPCS: 73110 ==

== ENCOUNTER → 2018-01-18 | Outpatient (REF) | payer OTHER ==
[2018-01-18 19:24] LABS: APPEARANCE, URINE CLEAR (CLEAR); BACTERIA, URINE AUTO 1+ (NEGATIVE); BILIRUBIN, URINE AUTO NEGATIVE (NEGATIVE); BLOOD, URINE BLOOD NEGATIVE (NEGATIVE); COLOR, URINE YELLOW (YELLOW); GLUCOSE, URINE (UA) AUTO NEGATIVE (NEGATIVE); KETONE, URINE AUTO NEGATIVE (NEGATIVE); LEUKOCYTE ESTERASE, URINE AUTO NEGATIVE (NEGATIVE); MUCUS, URINE SMALL (NEGATIVE); NITRITE, URINE AUTO NEGATIVE (NEGATIVE); PROTEIN, URINE AUTO NEGATIVE (NEGATIVE); RBC, URINE AUTO 1 /HPF (0-3); SPECIFIC GRAVITY URINE AUTO 1.032 (1.002-1.035); SQUAMOUS EPITHELIAL CELL UR AU 3 /HPF (0-6); UROBILINOGEN, URINE AUTO 0.2 mg/dL (0.0-2.0); WBC, URINE AUTO 0 /HPF (0-3)
== END ==
LOC: M SFHCPLAZ 15:13
DX: R82.90 Unspecified abnormal findings in urine (principal)

== ENCOUNTER → 2018-02-08 | Outpatient (CLI) | payer OTHER ==
[2018-02-08 14:34] LABS: TESTOSTERONE 23 NG/DL (14-76)
== END ==
LOC: M WUC 09:29
DX: E27.9 Disorder of adrenal gland, unspecified (principal); E66.09 Other obesity due to excess calories
CPT/HCPCS: 84403

== ENCOUNTER → 2018-02-08 | Outpatient (CLI) | payer OTHER ==
[2018-02-08 11:04] LABS: CORTISOL AM 0.9 UG/DL (4.3-22.4)
== END ==
LOC: M WUC 08:07
DX: E27.9 Disorder of adrenal gland, unspecified (principal)
CPT/HCPCS: 82533

== ENCOUNTER 2018-02-09 02:11 | Emergency (ER) | payer OTHER ==
[2018-02-09 02:51] LABS: HEMOGLOBIN 13.6 g/dl (12.0-15.5); MEAN CORPUSCULAR HEMOGLOBIN 28.3 pg (27.0-33.0); MEAN CORPUSCULAR VOLUME 83.2 fl (80.0-96.0); PLATELET COUNT, AUTOMATED 251 10^3/uL (150-450); RED BLOOD COUNT 4.81 10^6/uL (4.00-5.40); RED CELL DISTRIBUTION WIDTH 12.7 % (11.5-14.5); WHITE BLOOD COUNT 16.5 10^3/uL (4.0-10.0)
[2018-02-09 03:05] LABS: CONTROL LINE HCG INT CTR LINE PRESENT; HCG, SERUM QUALITATIVE NEGATIVE (NEGATIVE)
[2018-02-09 03:22] LABS: ALBUMIN 3.6 GM/DL (3.2-5.2); ALBUMIN/GLOBULIN RATIO 1.06 (1.00-1.93); ALKALINE PHOSPHATASE 87 U/L (45-117); ALT/SGPT 21 U/L (12-78); ANION GAP 11 MEQ/L (8-16); AST/SGOT 10 U/L (7-37); BILIRUBIN,DIRECT < 0.1 MG/DL (0.0-0.2); BILIRUBIN,TOTAL 0.2 MG/DL (0.2-1.0); BLOOD UREA NITROGEN 9 MG/DL (7-18); CALCIUM LEVEL 8.6 MG/DL (8.5-10.1); CARBON DIOXIDE LEVEL 24 MEQ/L (21-32); CHLORIDE LEVEL 106 MEQ/L (98-107); CREATININE FOR GFR 0.87 MG/DL (0.55-1.30); ETHYL ALCOHOL (ETHANOL) < 0.003 % (0.000-0.010); GLOMERULAR FILTRATION RATE > 60.0 (>60); GLUCOSE, FASTING 133 MG/DL (70-100); POTASSIUM SERUM 3.5 MEQ/L (3.5-5.1); SALICYLATE LEVEL < 1.7 MG/DL (5.0-30.0); SODIUM LEVEL 141 MEQ/L (136-145)
[2018-02-09 03:25] LABS: ACETAMINOPHEN LEVEL < 2.0 UG/ML (10.0-30.0)
[2018-02-09] MEDS: ONDANSETRON 4MG/2ML VIAL (J2405) IV (04:06)
[2018-02-09 04:09] LABS: AMPHETAMINES LEVEL URINE NEGATIVE (NEGATIVE); BARBITURATES URINE NEGATIVE (NEGATIVE); BENZODIAZEPINES URINE POSITIVE (NEGATIVE); CANNABINOIDS URINE NEGATIVE (NEGATIVE); COCAINE METABOLITE URINE NEGATIVE (NEGATIVE); METHADONE URINE NEGATIVE (NEGATIVE); OPIATES URINE POSITIVE (NEGATIVE); PHENCYCLIDINE URINE NEGATIVE (NEGATIVE)
== END 2018-02-09 05:18 | disposition home or self-care (01) ==
LOC: M ED 02:11
DX: F43.10 Post-traumatic stress disorder, unspecified (principal); F44.9 Dissociative and conversion disorder, unspecified; Z88.8 Allergy status to other drugs, medicaments and biological substances; Z91.013 Allergy to seafood; Z79.899 Other long term (current) drug therapy
CPT/HCPCS: J2405

== ENCOUNTER 2018-02-09 16:37 | Emergency (ER) | payer OTHER ==
[2018-02-09] MEDS: ADACEL/BOOSTRIX VACCINE (DIPHTH/PERTUSS/ACELL/TETANUS)0.5ML SYR (90715) IM (17:45)
== END 2018-02-09 23:08 | disposition home or self-care (01) ==
LOC: M ED 16:37
DX: S00.01XA Abrasion of scalp, initial encounter (principal); W22.09XA Striking against other stationary object, initial encounter; Y92.098 Other place in other non-institutional residence as the place of occurrence of the external cause; R11.10 Vomiting, unspecified; F43.10 Post-traumatic stress disorder, unspecified; F32.9 Major depressive disorder, single episode, unspecified; R56.9 Unspecified convulsions; R51 Headache; J45.909 Unspecified asthma, uncomplicated; M54.2 Cervicalgia; G89.29 Other chronic pain; Z87.442 Personal history of urinary calculi; I47.1 Supraventricular tachycardia; Z87.891 Personal history of nicotine dependence; Z88.8 Allergy status to other drugs, medicaments and biological substances; Z91.013 Allergy to seafood; Z79.899 Other long term (current) drug therapy
CPT/HCPCS: 90715

== ENCOUNTER 2018-02-10 18:30 | Emergency (ER) | payer OTHER ==
[2018-02-10] MEDS: KETOROLAC 60 MG/2 ML VIAL (J1885) IM (21:15)
[2018-02-10] MEDS: ONDANSETRON 4 MG ORAL DISINTEGRATING TAB (Q0162 PER 1MG) PO ×2 (21:15→21:58)
[2018-02-10] MEDS: ACETAMINOPHEN 325 MG TAB PO ×2 (21:15→21:58)
== END 2018-02-10 23:43 | disposition home or self-care (01) ==
LOC: M ED 18:30
DX: F07.81 Postconcussional syndrome (principal); Z87.442 Personal history of urinary calculi; Z87.891 Personal history of nicotine dependence; Z79.899 Other long term (current) drug therapy; Z88.8 Allergy status to other drugs, medicaments and biological substances
CPT/HCPCS: Q0162

== ENCOUNTER → 2018-03-11 | Outpatient (REF) | payer OTHER ==
[2018-03-11 17:31] LABS: CHLAMYDIA DNA AMPLIFICATION NEGATIVE (NEGATIVE); GC DNA AMPLIFICATION NEGATIVE (NEGATIVE)
== END ==
LOC: M SFHCWAGY 15:28
DX: Z11.3 Encounter for screening for infections with a predominantly sexual mode of transmission (principal)
CPT/HCPCS: 87591

== ENCOUNTER 2018-04-02 00:41 | Inpatient (IN) | payer MEDICAID, OTHER ==
[2018-04-02 02:59] LABS: HEMATOCRIT 44.9 % (36.0-47.0); HEMOGLOBIN 15.2 g/dl (12.0-15.5); MEAN CORPUSCULAR HEMOGLOBIN 28.6 pg (27.0-33.0); MEAN CORPUSCULAR HGB CONC 33.9 g/dl (32.0-36.5); MEAN CORPUSCULAR VOLUME 84.4 fl (80.0-96.0); PLATELET COUNT, AUTOMATED 325 10^3/uL (150-450); RED BLOOD COUNT 5.32 10^6/uL (4.00-5.40); RED CELL DISTRIBUTION WIDTH 12.8 % (11.5-14.5); WHITE BLOOD COUNT 12.8 10^3/uL (4.0-10.0)
[2018-04-02 03:09] LABS: CONTROL LINE HCG INT CTR LINE PRESENT; HCG, SERUM QUALITATIVE NEGATIVE (NEGATIVE)
[2018-04-02 03:19] LABS: AMPHETAMINES LEVEL URINE NEGATIVE (NEGATIVE); BARBITURATES URINE NEGATIVE (NEGATIVE); BENZODIAZEPINES URINE NEGATIVE (NEGATIVE); CANNABINOIDS URINE NEGATIVE (NEGATIVE); COCAINE METABOLITE URINE NEGATIVE (NEGATIVE); METHADONE URINE NEGATIVE (NEGATIVE); OPIATES URINE NEGATIVE (NEGATIVE); PHENCYCLIDINE URINE NEGATIVE (NEGATIVE)
[2018-04-02 03:20] LABS: ALBUMIN/GLOBULIN RATIO 1.03 (1.00-1.93); ALKALINE PHOSPHATASE 110 U/L (45-117); ALT/SGPT 26 U/L (12-78); ANION GAP 13 MEQ/L (8-16); AST/SGOT 15 U/L (7-37); BILIRUBIN,DIRECT < 0.1 MG/DL (0.0-0.2); BILIRUBIN,TOTAL 0.2 MG/DL (0.2-1.0); BLOOD UREA NITROGEN 11 MG/DL (7-18); CALCIUM LEVEL 9.7 MG/DL (8.5-10.1); CARBON DIOXIDE LEVEL 20 MEQ/L (21-32); CHLORIDE LEVEL 112 MEQ/L (98-107); CPK CREATINE PHOSPHOKINASE 120 U/L (26-192); CREATININE FOR GFR 1.01 MG/DL (0.55-1.30); GLOMERULAR FILTRATION RATE > 60.0 (>60); GLUCOSE, FASTING 114 MG/DL (70-100); SALICYLATE LEVEL < 1.7 MG/DL (5.0-30.0); SODIUM LEVEL 145 MEQ/L (136-145); TOTAL PROTEIN 7.9 GM/DL (6.4-8.2)
[2018-04-02 03:21] LABS: ACETAMINOPHEN LEVEL < 2.0 UG/ML (10.0-30.0); ETHYL ALCOHOL (ETHANOL) < 0.003 % (0.000-0.010)
[2018-04-02] MEDS ORDERED: MAALOX 30 ML SUSP *UDC PO (06:00)
[2018-04-02] MEDS ORDERED: MOM 30ML SUSPENSION UDC PO (06:00)
[2018-04-02] MEDS ORDERED: OLANZapine 10 MG TAB PO (06:00)
[2018-04-02] MEDS: ACETAMINOPHEN TAB 650MG DOSE (2X325MG) PO ×2 (07:42→21:35)
[2018-04-02] MEDS ORDERED: ALBUTEROL 90 MCG/ACT 8GM HFA INHALER INH (11:45)
[2018-04-02] MEDS: FLUTICASONE PROP 0.05% NASAL SPRAY 16 GM (FLONASE) (14:05)
[2018-04-02] MEDS: FERROUS SULFATE 325MG TAB PO (14:06)
[2018-04-02] MEDS: MONTELUKAST 10 MG TAB PO (14:06)
[2018-04-02] MEDS: VITAMIN D 1,000 INTERNATIONAL UNITS TABLET PO (14:06)
[2018-04-02] MEDS: metFORMIN XR 500MG TAB *GLUCOPHAGE XR PO ×2 (14:06→21:35)
[2018-04-02 16:34] LABS: BEDSIDE GLUCOSE 110 MG/DL (70-105)
[2018-04-02] MEDS: GABAPENTIN 300 MG CAP PO ×2 (16:37→21:34)
[2018-04-02] MEDS: SERTRALINE 100 MG TAB PO (16:37)
[2018-04-02] MEDS: SERTRALINE HCL 50 MG TAB PO (16:37)
[2018-04-02] MEDS: busPIRone 10 MG TAB PO (21:33)
[2018-04-02] MEDS: traZODone 50 MG TAB PO (21:34)
[2018-04-02] MEDS: PRAMIPEXOLE 1 MG TAB PO (21:35)
[2018-04-02] MEDS: ONDANSETRON 4 MG ORAL DISINTEGRATING TAB (Q0162 PER 1MG) SL (23:31)
[2018-04-03] MEDS: LORazepam 2 MG TAB PO (00:14)
[2018-04-03] MEDS: BACLOFEN 10 MG TAB PO (03:16)
[2018-04-03] MEDS: PROMETHAZINE INJ 25 MG/ML VIAL (J2550) IM (05:44)
[2018-04-03] MEDS: ONDANSETRON 4MG/2ML VIAL (J2405) IM (06:57)
[2018-04-03 07:01] LABS: HEMATOCRIT 39.3 % (36.0-47.0); HEMOGLOBIN 13.9 g/dl (12.0-15.5); MEAN CORPUSCULAR HEMOGLOBIN 28.5 pg (27.0-33.0); MEAN CORPUSCULAR HGB CONC 35.4 g/dl (32.0-36.5); MEAN CORPUSCULAR VOLUME 80.5 fl (80.0-96.0); PLATELET COUNT, AUTOMATED 295 10^3/uL (150-450); RED BLOOD COUNT 4.88 10^6/uL (4.00-5.40); RED CELL DISTRIBUTION WIDTH 12.9 % (11.5-14.5); WHITE BLOOD COUNT 12.7 10^3/uL (4.0-10.0)
[2018-04-03 07:19] LABS: ESTIMATED AVERAGE GLUCOSE 111 MG/DL (60-110); HEMOGLOBIN A1c 5.5 %
[2018-04-03 07:24] LABS: ALBUMIN 4.1 GM/DL (3.2-5.2); ALBUMIN/GLOBULIN RATIO 1.17 (1.00-1.93); ALKALINE PHOSPHATASE 91 U/L (45-117); ALT/SGPT 24 U/L (12-78); ANION GAP 15 MEQ/L (8-16); AST/SGOT 20 U/L (7-37); BILIRUBIN,TOTAL 0.5 MG/DL (0.2-1.0); BLOOD UREA NITROGEN 12 MG/DL (7-18); CALCIUM LEVEL 9.7 MG/DL (8.5-10.1); CARBON DIOXIDE LEVEL 20 MEQ/L (21-32); CHLORIDE LEVEL 109 MEQ/L (98-107); CREATININE FOR GFR 0.98 MG/DL (0.55-1.30); GLOMERULAR FILTRATION RATE > 60.0 (>60); GLUCOSE, FASTING 119 MG/DL (70-100); MAGNESIUM LEVEL 1.8 MG/DL (1.8-2.4); POTASSIUM SERUM 3.5 MEQ/L (3.5-5.1); SODIUM LEVEL 144 MEQ/L (136-145); TOTAL PROTEIN 7.6 GM/DL (6.4-8.2)
[2018-04-03 08:10] LABS: AMYLASE 46 U/L (25-115); LIPASE 94 U/L (73-393)
[2018-04-03 09:10] LABS: KETONE, URINE AUTO RFX 2+ mg/dL (NEGATIVE); LEUKOCYTE ESTERASE UR AUTO RFX NEGATIVE (NEGATIVE); MUCUS, URINE RFX SMALL (NEGATIVE); NITRITE, URINE AUTO RFX NEGATIVE (NEGATIVE); RBC, URINE AUTO RFX 1 /HPF (0-3); SQUAM EPITHELIAL CELL UR AURFX 7 /HPF (0-6); WBC, URINE AUTO RFX 1 /HPF (0-3)
[2018-04-03] MEDS: ONDANSETRON 4 MG ORAL DISINTEGRATING TAB (Q0162 PER 1MG) SL ×2 (09:59→14:08)
[2018-04-03] MEDS: FLUTICASONE PROP 0.05% NASAL SPRAY 16 GM (FLONASE) (10:27)
[2018-04-03] MEDS: VITAMIN D 1,000 INTERNATIONAL UNITS TABLET PO (10:28)
[2018-04-03] MEDS: FERROUS SULFATE 325MG TAB PO (10:28)
[2018-04-03] MEDS: busPIRone 10 MG TAB PO ×2 (10:28→21:46)
[2018-04-03] MEDS: SERTRALINE 100 MG TAB PO (10:28)
[2018-04-03] MEDS: SERTRALINE HCL 50 MG TAB PO (10:28)
[2018-04-03] MEDS: metFORMIN XR 500MG TAB *GLUCOPHAGE XR PO ×2 (10:28→21:45)
[2018-04-03] MEDS: GABAPENTIN 300 MG CAP PO ×3 (10:28→21:45)
[2018-04-03] MEDS: MONTELUKAST 10 MG TAB PO (10:29)
[2018-04-03] MEDS: ACETAMINOPHEN TAB 650MG DOSE (2X325MG) PO ×2 (14:08→21:47)
[2018-04-03 17:30] LABS: BEDSIDE GLUCOSE 111 MG/DL (70-105)
[2018-04-03] MEDS: PRAMIPEXOLE 1 MG TAB PO (21:46)
[2018-04-04] MEDS: ONDANSETRON 4 MG ORAL DISINTEGRATING TAB (Q0162 PER 1MG) SL ×2 (01:09→08:33)
[2018-04-04 07:38] LABS: HEMATOCRIT 43.3 % (36.0-47.0); HEMOGLOBIN 14.9 g/dl (12.0-15.5); MEAN CORPUSCULAR HEMOGLOBIN 28.5 pg (27.0-33.0); MEAN CORPUSCULAR HGB CONC 34.4 g/dl (32.0-36.5); PLATELET COUNT, AUTOMATED 355 10^3/uL (150-450); RED BLOOD COUNT 5.22 10^6/uL (4.00-5.40); RED CELL DISTRIBUTION WIDTH 13.3 % (11.5-14.5); WHITE BLOOD COUNT 12.8 10^3/uL (4.0-10.0)
[2018-04-04 07:52] LABS: ALBUMIN 4.3 GM/DL (3.2-5.2); ALKALINE PHOSPHATASE 97 U/L (45-117); ALT/SGPT 26 U/L (12-78); ANION GAP 11 MEQ/L (8-16); AST/SGOT 17 U/L (7-37); BILIRUBIN,TOTAL 0.4 MG/DL (0.2-1.0); BLOOD UREA NITROGEN 12 MG/DL (7-18); CALCIUM LEVEL 9.5 MG/DL (8.5-10.1); CARBON DIOXIDE LEVEL 28 MEQ/L (21-32); CHLORIDE LEVEL 108 MEQ/L (98-107); CREATININE FOR GFR 1.01 MG/DL (0.55-1.30); GLOMERULAR FILTRATION RATE > 60.0 (>60); GLUCOSE, FASTING 95 MG/DL (70-100); MAGNESIUM LEVEL 2.3 MG/DL (1.8-2.4); POTASSIUM SERUM 3.9 MEQ/L (3.5-5.1); SODIUM LEVEL 147 MEQ/L (136-145); TOTAL PROTEIN 8.2 GM/DL (6.4-8.2)
[2018-04-04] MEDS: metFORMIN XR 500MG TAB *GLUCOPHAGE XR PO (09:00)
[2018-04-04] MEDS: MONTELUKAST 10 MG TAB PO (09:24)
[2018-04-04] MEDS: FERROUS SULFATE 325MG TAB PO (09:24)
[2018-04-04] MEDS: SERTRALINE HCL 50 MG TAB PO (09:24)
[2018-04-04] MEDS: GABAPENTIN 300 MG CAP PO (09:24)
[2018-04-04] MEDS: SERTRALINE 100 MG TAB PO (09:25)
[2018-04-04] MEDS: ACETAMINOPHEN TAB 650MG DOSE (2X325MG) PO (09:25)
[2018-04-04] MEDS: BACLOFEN 10 MG TAB PO (09:25)
[2018-04-04] MEDS: VITAMIN D 1,000 INTERNATIONAL UNITS TABLET PO (09:25)
[2018-04-04] MEDS: busPIRone 10 MG TAB PO (09:26)
== END 2018-04-04 11:04 | disposition home or self-care (01) | DRG 882 ==
LOC: M ED 00:41 → M ED INP 06:00 → M PSY 08:54
DX: F43.10 Post-traumatic stress disorder, unspecified (principal); F60.3 Borderline personality disorder; F44.9 Dissociative and conversion disorder, unspecified; Z79.899 Other long term (current) drug therapy; Z88.8 Allergy status to other drugs, medicaments and biological substances; Z91.013 Allergy to seafood; J45.909 Unspecified asthma, uncomplicated; G43.909 Migraine, unspecified, not intractable, without status migrainosus; M54.2 Cervicalgia; E83.42 Hypomagnesemia; D72.829 Elevated white blood cell count, unspecified; R26.89 Other abnormalities of gait and mobility; E28.2 Polycystic ovarian syndrome

== ENCOUNTER → 2018-04-24 | Outpatient (REF) | payer OTHER ==
[2018-04-24 18:04] LABS: INR 0.97
[2018-04-24 18:08] LABS: APPEARANCE, URINE TURBID (CLEAR); BACTERIA, URINE AUTO 1+ (NEGATIVE); BILIRUBIN, URINE AUTO NEGATIVE (NEGATIVE); BLOOD, URINE BLOOD 2+ (NEGATIVE); CALCIUM OXALATE CRYSTALS SMALL; COLOR, URINE AMBER (YELLOW); GLUCOSE, URINE (UA) AUTO NEGATIVE (NEGATIVE); KETONE, URINE AUTO NEGATIVE (NEGATIVE); LEUKOCYTE ESTERASE, URINE AUTO 2+ (NEGATIVE); MUCUS, URINE LARGE (NEGATIVE); NITRITE, URINE AUTO NEGATIVE (NEGATIVE); PROTEIN, URINE AUTO 1+ mg/dL (NEGATIVE); RBC, URINE AUTO 2 /HPF (0-3); SPECIFIC GRAVITY URINE AUTO 1.031 (1.002-1.035); SQUAMOUS EPITHELIAL CELL UR AU 82 /HPF (0-6); UROBILINOGEN, URINE AUTO 0.2 mg/dL (0.0-2.0); WBC, URINE AUTO 21 /HPF (0-3)
[2018-04-24 18:24] LABS: BASO % 0.3 % (0.0-1.0); EOS # 0.1 10^3/uL (0.0-0.50); EOS % 0.9 % (0.0-3.0); HEMATOCRIT 46.2 % (36.0-47.0); HEMOGLOBIN 15.3 g/dl (12.0-15.5); IMMATURE GRANULOCYTE % 0.4 % (0-3.0); LYMPH # 1.4 10^3/uL (1.5-6.5); LYMPH % 12.7 % (24.0-44.0); MEAN CORPUSCULAR HEMOGLOBIN 28.5 pg (27.0-33.0); MEAN CORPUSCULAR HGB CONC 33.1 g/dl (32.0-36.5); MONO # 0.6 10^3/uL (0.0-0.8); MONO % 5.5 % (0.0-5.0); NEUTROPHILS # 9.1 10^3/uL (1.8-7.7); NEUTROPHILS % 80.2 % (36.0-66.0); PLATELET COUNT, AUTOMATED 275 10^3/uL (150-450); RED BLOOD COUNT 5.37 10^6/uL (4.00-5.40); RED CELL DISTRIBUTION WIDTH 12.7 % (11.5-14.5); WHITE BLOOD COUNT 11.3 10^3/uL (4.0-10.0)
[2018-04-24 18:34] LABS: ANION GAP 12 MEQ/L (8-16); BLOOD UREA NITROGEN 9 MG/DL (7-18); CALCIUM LEVEL 9.6 MG/DL (8.5-10.1); CARBON DIOXIDE LEVEL 26 MEQ/L (21-32); CHLORIDE LEVEL 104 MEQ/L (98-107); CREATININE FOR GFR 0.71 MG/DL (0.55-1.30); GLOMERULAR FILTRATION RATE > 60.0 (>60); GLUCOSE, FASTING 72 MG/DL (70-100); SODIUM LEVEL 142 MEQ/L (136-145)
== END ==
LOC: M SFHCPLAZ 15:17
DX: Z01.818 Encounter for other preprocedural examination (principal)

== ENCOUNTER → 2018-05-24 | Outpatient (CLI) | payer OTHER ==
[2018-05-29 08:07] LABS: F003-IGE CODFISH <0.10 kU/L (Class 0); F023-IGE CRAB <0.10 kU/L (Class 0); F024-IGE SHRIMP <0.10 kU/L (Class 0); F037-IGE MUSSEL <0.10 kU/L (Class 0); F040-IGE TUNA <0.10 kU/L (Class 0); F041-IGE SALMON <0.10 kU/L (Class 0); F080-IGE LOBSTER <0.10 kU/L (Class 0); F207-IGE CLAM <0.10 kU/L (Class 0); F258-IGE SQUID <0.10 kU/L (Class 0); F290-IGE OYSTER <0.10 kU/L (Class 0); F338-IGE SCALLOP <0.10 kU/L (Class 0)
== END ==
LOC: M SMT 10:52
DX: Z91.018 Allergy to other foods (principal)
CPT/HCPCS: 82785

== ENCOUNTER 2018-07-06 00:49 | Emergency (ER) | payer OTHER ==
[2018-07-06] MEDS: NS 500 ML IV ×2 (02:00)
[2018-07-06 02:04] LABS: BASO # 0.1 10^3/uL (0.0-0.2); BASO % 0.4 % (0.0-1.0); EOS # 0.1 10^3/uL (0.0-0.50); EOS % 1.1 % (0.0-3.0); HEMATOCRIT 44.4 % (36.0-47.0); IMMATURE GRANULOCYTE % 0.5 % (0-3.0); LYMPH # 2.3 10^3/uL (1.5-6.5); LYMPH % 20.1 % (24.0-44.0); MEAN CORPUSCULAR HEMOGLOBIN 28.5 pg (27.0-33.0); MEAN CORPUSCULAR HGB CONC 33.8 g/dl (32.0-36.5); MEAN CORPUSCULAR VOLUME 84.4 fl (80.0-96.0); MONO % 8.6 % (0.0-5.0); NEUTROPHILS % 69.3 % (36.0-66.0); PLATELET COUNT, AUTOMATED 293 10^3/uL (150-450); RED BLOOD COUNT 5.26 10^6/uL (4.00-5.40); RED CELL DISTRIBUTION WIDTH 12.8 % (11.5-14.5); WHITE BLOOD COUNT 11.5 10^3/uL (4.0-10.0)
[2018-07-06 02:18] LABS: ALBUMIN 4.4 GM/DL (3.2-5.2); ALBUMIN/GLOBULIN RATIO 1.16 (1.00-1.93); ALKALINE PHOSPHATASE 107 U/L (45-117); ALT/SGPT 25 U/L (12-78); ANION GAP 11 MEQ/L (8-16); AST/SGOT 21 U/L (7-37); BILIRUBIN,DIRECT < 0.1 MG/DL (0.0-0.2); BILIRUBIN,TOTAL 0.3 MG/DL (0.2-1.0); BLOOD UREA NITROGEN 9 MG/DL (7-18); CALCIUM LEVEL 9.8 MG/DL (8.5-10.1); CARBON DIOXIDE LEVEL 26 MEQ/L (21-32); CHLORIDE LEVEL 104 MEQ/L (98-107); CREATININE FOR GFR 0.83 MG/DL (0.55-1.30); GLOMERULAR FILTRATION RATE > 60.0 (>60); GLUCOSE, FASTING 100 MG/DL (70-100); LIPASE 138 U/L (73-393); POTASSIUM SERUM 3.1 MEQ/L (3.5-5.1); SODIUM LEVEL 141 MEQ/L (136-145); TOTAL PROTEIN 8.2 GM/DL (6.4-8.2)
[2018-07-06] MEDS: diphenhydrAMINE INJ 50MG/ML VIAL (J1200) IV ×2 (02:46)
[2018-07-06] MEDS: MORPHINE 4 MG/ML 1ML VIAL/SYRINGE (J2270) IV ×2 (02:46)
[2018-07-06 02:56] LABS: CONTROL LINE HCG INT CTR LINE PRESENT; HCG, SERUM QUALITATIVE NEGATIVE (NEGATIVE)
[2018-07-06] MEDS: GASTROGRAFIN SOLUTION 30ML PO ×4 (02:57→03:45)
[2018-07-06 04:15] LABS: APPEARANCE, URINE CLEAR (CLEAR); BACTERIA, URINE AUTO 2+ (NEGATIVE); BILIRUBIN, URINE AUTO NEGATIVE (NEGATIVE); BLOOD, URINE BLOOD 2+ (NEGATIVE); COLOR, URINE YELLOW (YELLOW); GLUCOSE, URINE (UA) AUTO NEGATIVE (NEGATIVE); KETONE, URINE AUTO NEGATIVE (NEGATIVE); LEUKOCYTE ESTERASE, URINE AUTO TRACE (NEGATIVE); MUCUS, URINE SMALL (NEGATIVE); NITRITE, URINE AUTO NEGATIVE (NEGATIVE); PROTEIN, URINE AUTO NEGATIVE (NEGATIVE); RBC, URINE AUTO 1 /HPF (0-3); SPECIFIC GRAVITY URINE AUTO 1.008 (1.002-1.035); SQUAMOUS EPITHELIAL CELL UR AU 1 /HPF (0-6); UROBILINOGEN, URINE AUTO 0.2 mg/dL (0.0-2.0); WBC, URINE AUTO 2 /HPF (0-3)
[2018-07-06] MEDS: METOCLOPRAMIDE INJ 10MG/2ML VIAL (J2765) IV ×2 (04:32)
[2018-07-06] MEDS: POTASSIUM CHLORIDE 10 MEQ SR TABLET PO ×2 (05:06)
[2018-07-09 08:51] LABS: BEDSIDE GLUCOSE 101 MG/DL (70-105)
== END 2018-07-06 06:42 | disposition home or self-care (01) ==
LOC: M ED 00:49
DX: R10.31 Right lower quadrant pain (principal); R11.2 Nausea with vomiting, unspecified; E11.9 Type 2 diabetes mellitus without complications; J45.909 Unspecified asthma, uncomplicated; F32.9 Major depressive disorder, single episode, unspecified; M54.9 Dorsalgia, unspecified; Z79.899 Other long term (current) drug therapy; Z79.84 Long term (current) use of oral hypoglycemic drugs
CPT/HCPCS: J2270

== ENCOUNTER → 2018-07-06 | Outpatient (REF) | payer OTHER | LOC: M LAB REF 17:32 | DX: R30.0 Dysuria (principal) | CPT/HCPCS: 87086 ==

== ENCOUNTER 2018-07-08 09:19 | Emergency (ER) | payer OTHER ==
[2018-07-08] MEDS: NS 1,000 ML IV ×2 (10:13)
[2018-07-08] MEDS: METOCLOPRAMIDE INJ 10MG/2ML VIAL (J2765) IV ×2 (10:13)
[2018-07-08 10:22] LABS: BASO # 0.1 10^3/uL (0.0-0.2); BASO % 0.5 % (0.0-1.0); EOS # 0.1 10^3/uL (0.0-0.50); EOS % 1.1 % (0.0-3.0); HEMOGLOBIN 14.7 g/dl (12.0-15.5); IMMATURE GRANULOCYTE % 0.7 % (0-3.0); LYMPH # 1.9 10^3/uL (1.5-6.5); LYMPH % 16.9 % (24.0-44.0); MEAN CORPUSCULAR HEMOGLOBIN 28.8 pg (27.0-33.0); MEAN CORPUSCULAR HGB CONC 34.2 g/dl (32.0-36.5); MEAN CORPUSCULAR VOLUME 84.3 fl (80.0-96.0); MONO # 0.7 10^3/uL (0.0-0.8); MONO % 6.7 % (0.0-5.0); NEUTROPHILS # 8.2 10^3/uL (1.8-7.7); NEUTROPHILS % 74.1 % (36.0-66.0); PLATELET COUNT, AUTOMATED 277 10^3/uL (150-450); RED CELL DISTRIBUTION WIDTH 12.7 % (11.5-14.5); WHITE BLOOD COUNT 11.1 10^3/uL (4.0-10.0)
[2018-07-08 10:58] LABS: ALBUMIN/GLOBULIN RATIO 1.29 (1.00-1.93); ALKALINE PHOSPHATASE 103 U/L (45-117); ALT/SGPT 20 U/L (12-78); ANION GAP 12 MEQ/L (8-16); AST/SGOT 16 U/L (7-37); BILIRUBIN,DIRECT < 0.1 MG/DL (0.0-0.2); BILIRUBIN,TOTAL 0.4 MG/DL (0.2-1.0); BLOOD UREA NITROGEN 8 MG/DL (7-18); CALCIUM LEVEL 8.7 MG/DL (8.5-10.1); CARBON DIOXIDE LEVEL 23 MEQ/L (21-32); CHLORIDE LEVEL 105 MEQ/L (98-107); CREATININE FOR GFR 0.81 MG/DL (0.55-1.30); GLOMERULAR FILTRATION RATE > 60.0 (>60); GLUCOSE, FASTING 98 MG/DL (70-100); LIPASE 132 U/L (73-393); POTASSIUM SERUM 3.8 MEQ/L (3.5-5.1); SODIUM LEVEL 140 MEQ/L (136-145); TOTAL PROTEIN 7.1 GM/DL (6.4-8.2)
[2018-07-08 11:00] LABS: CONTROL LINE HCG INT CTR LINE PRESENT; HCG, SERUM QUALITATIVE NEGATIVE (NEGATIVE)
[2018-07-08 12:01] LABS: CHLAMYDIA DNA AMPLIFICATION NEGATIVE (NEGATIVE); GC DNA AMPLIFICATION NEGATIVE (NEGATIVE)
[2018-07-08] MEDS ORDERED: KETOROLAC 30 MG/ML VIAL (J1885) IV ×2 (13:30)
[2018-07-08] MEDS: ACETAMINOPHEN 325 MG TAB PO ×2 (13:52)
== END 2018-07-08 14:50 | disposition home or self-care (01) ==
LOC: M ED 09:19
DX: R11.2 Nausea with vomiting, unspecified (principal); R19.7 Diarrhea, unspecified; Z88.8 Allergy status to other drugs, medicaments and biological substances; Z91.013 Allergy to seafood; Z97.5 Presence of (intrauterine) contraceptive device
CPT/HCPCS: J2765

== ENCOUNTER 2018-07-13 20:30 | Inpatient (IN) | payer MEDICAID, OTHER ==
[2018-07-13] MEDS: NS 1,000 ML IV ×2 (20:45→22:47)
[2018-07-13 20:50] LABS: BASO # 0.1 10^3/uL (0.0-0.2); BASO % 0.5 % (0.0-1.0); EOS # 0.1 10^3/uL (0.0-0.50); EOS % 0.8 % (0.0-3.0); HEMATOCRIT 41.4 % (36.0-47.0); HEMOGLOBIN 13.9 g/dl (12.0-15.5); LYMPH # 1.8 10^3/uL (1.5-6.5); LYMPH % 12.1 % (24.0-44.0); MEAN CORPUSCULAR HEMOGLOBIN 28.8 pg (27.0-33.0); MEAN CORPUSCULAR HGB CONC 33.6 g/dl (32.0-36.5); MEAN CORPUSCULAR VOLUME 85.7 fl (80.0-96.0); MONO % 6.6 % (0.0-5.0); NEUTROPHILS # 11.7 10^3/uL (1.8-7.7); PLATELET COUNT, AUTOMATED 259 10^3/uL (150-450); RED BLOOD COUNT 4.83 10^6/uL (4.00-5.40); RED CELL DISTRIBUTION WIDTH 12.7 % (11.5-14.5); WHITE BLOOD COUNT 14.9 10^3/uL (4.0-10.0)
[2018-07-13 21:12] LABS: CONTROL LINE HCG INT CTR LINE PRESENT; HCG, SERUM QUALITATIVE NEGATIVE (NEGATIVE)
[2018-07-13 21:14] LABS: AMMONIA 17 uMOL/L (<32)
[2018-07-13 21:24] LABS: ALBUMIN/GLOBULIN RATIO 1.33 (1.00-1.93); ALKALINE PHOSPHATASE 92 U/L (45-117); ALT/SGPT 27 U/L (12-78); ANION GAP 12 MEQ/L (8-16); AST/SGOT 23 U/L (7-37); BILIRUBIN,DIRECT < 0.1 MG/DL (0.0-0.2); BILIRUBIN,TOTAL 0.1 MG/DL (0.2-1.0); BLOOD UREA NITROGEN 15 MG/DL (7-18); CALCIUM LEVEL 9.2 MG/DL (8.5-10.1); CARBON DIOXIDE LEVEL 21 MEQ/L (21-32); CHLORIDE LEVEL 107 MEQ/L (98-107); CPK CREATINE PHOSPHOKINASE 88 U/L (26-192); CREATININE FOR GFR 0.82 MG/DL (0.55-1.30); ETHYL ALCOHOL (ETHANOL) < 0.003 % (0.000-0.010); FREE THYROXINE INDEX 2.4 % (1.3-4.8); GLOMERULAR FILTRATION RATE > 60.0 (>60); GLUCOSE, FASTING 84 MG/DL (70-100); POTASSIUM SERUM 4.2 MEQ/L (3.5-5.1); SODIUM LEVEL 140 MEQ/L (136-145); T UPTAKE 30 % (30-39); THYROXINE (T4) 7.9 UG/DL (4.5-12.0)
[2018-07-13 21:41] LABS: ACETAMINOPHEN LEVEL < 2.0 UG/ML (10.0-30.0)
[2018-07-13 21:41] LABS: SALICYLATE LEVEL < 1.7 MG/DL (5.0-30.0)
[2018-07-13 21:44] LABS: LACTIC ACID SEPSIS PROTOCOL 3.2 MMOL/L (0.4-2.0)
[2018-07-13 22:51] LABS: AMPHETAMINES LEVEL URINE NEGATIVE (NEGATIVE); BARBITURATES URINE NEGATIVE (NEGATIVE); BENZODIAZEPINES URINE NEGATIVE (NEGATIVE); CANNABINOIDS URINE NEGATIVE (NEGATIVE); COCAINE METABOLITE URINE NEGATIVE (NEGATIVE); METHADONE URINE NEGATIVE (NEGATIVE); OPIATES URINE NEGATIVE (NEGATIVE); PHENCYCLIDINE URINE NEGATIVE (NEGATIVE)
[2018-07-14 00:49] LABS: LACTIC ACID SEPSIS PROTOCOL 1.1 MMOL/L (0.4-2.0)
[2018-07-14] MEDS: LORazepam 1 MG TAB PO (01:09)
[2018-07-14] MEDS ORDERED: ALBUTEROL 90 MCG/ACT 8GM HFA INHALER INH (01:30)
[2018-07-14] MEDS ORDERED: MOM 30ML SUSPENSION UDC PO (01:30)
[2018-07-14] MEDS ORDERED: MAALOX 30 ML SUSP *UDC PO (01:30)
[2018-07-14] MEDS ORDERED: traZODone 50 MG TAB PO (01:30)
[2018-07-14] MEDS: busPIRone 10 MG TAB PO ×3 (01:47→21:26)
[2018-07-14] MEDS ORDERED: metFORMIN (GLUCOPHAGE) 1000 MG TABLET PO (01:47)
[2018-07-14] MEDS: BACLOFEN 10 MG TAB PO ×4 (01:48→21:24)
[2018-07-14] MEDS: GABAPENTIN 300 MG CAP PO ×3 (01:48→21:27)
[2018-07-14] MEDS: cloNIDine 0.1 MG TAB PO ×2 (01:49→21:28)
[2018-07-14] MEDS: PRAMIPEXOLE 1 MG TAB PO ×2 (01:57→21:26)
[2018-07-14] MEDS: metFORMIN XR 500MG TAB *GLUCOPHAGE XR PO ×3 (01:58→21:28)
[2018-07-14] MEDS: SERTRALINE 100 MG TAB PO (08:15)
[2018-07-14] MEDS: VITAMIN D 1,000 INTERNATIONAL UNITS TABLET PO (08:15)
[2018-07-14] MEDS ORDERED: metFORMIN (GLUCOPHAGE) 500 MG TAB PO (09:00)
[2018-07-14] MEDS: MONTELUKAST 10 MG TAB PO ×2 (09:00→21:24)
[2018-07-14] MEDS ORDERED: PRAMIPEXOLE 1 MG TAB PO (09:00)
[2018-07-14] MEDS: LORazepam 2 MG/ML VIAL (J2060) IM (12:22)
[2018-07-14] MEDS: busPIRone 5 MG TAB PO (15:16)
[2018-07-14] MEDS: hydrOXYzine 50 MG TAB PO (15:17)
[2018-07-14] MEDS: FLUTICASONE PROP 0.05% NASAL SPRAY 16 GM (FLONASE) NARES (21:40)
[2018-07-15] MEDS: SERTRALINE 100 MG TAB PO (08:58)
[2018-07-15] MEDS: LORATADINE 10 MG TAB PO (08:58)
[2018-07-15] MEDS: VITAMIN D 1,000 INTERNATIONAL UNITS TABLET PO (08:58)
[2018-07-15] MEDS: GABAPENTIN 300 MG CAP PO ×2 (08:58→21:10)
[2018-07-15] MEDS: busPIRone 10 MG TAB PO ×2 (08:58→21:11)
[2018-07-15] MEDS: BACLOFEN 10 MG TAB PO ×3 (08:58→21:13)
[2018-07-15] MEDS: metFORMIN XR 500MG TAB *GLUCOPHAGE XR PO ×2 (08:59→21:11)
[2018-07-15] MEDS: busPIRone 5 MG TAB PO (12:49)
[2018-07-15] MEDS: FLUTICASONE PROP 0.05% NASAL SPRAY 16 GM (FLONASE) NARES (21:00)
[2018-07-15] MEDS: PRAMIPEXOLE 1 MG TAB PO (21:10)
[2018-07-15] MEDS: MONTELUKAST 10 MG TAB PO (21:11)
[2018-07-15] MEDS: cloNIDine 0.1 MG TAB PO (21:13)
[2018-07-15] MEDS: BELSOMRA PO (21:15)
[2018-07-16] MEDS: LORATADINE 10 MG TAB PO (08:50)
[2018-07-16] MEDS: busPIRone 10 MG TAB PO ×2 (08:50→21:33)
[2018-07-16] MEDS: VITAMIN D 1,000 INTERNATIONAL UNITS TABLET PO (08:50)
[2018-07-16] MEDS: metFORMIN XR 500MG TAB *GLUCOPHAGE XR PO ×2 (08:50→18:05)
[2018-07-16] MEDS: BACLOFEN 10 MG TAB PO ×3 (08:50→21:34)
[2018-07-16] MEDS: GABAPENTIN 300 MG CAP PO ×2 (08:50→21:33)
[2018-07-16] MEDS: SERTRALINE 100 MG TAB PO (08:51)
[2018-07-16 09:49] LABS: HEMATOCRIT 39.5 % (36.0-47.0); MEAN CORPUSCULAR HEMOGLOBIN 28.4 pg (27.0-33.0); MEAN CORPUSCULAR HGB CONC 32.9 g/dl (32.0-36.5); MEAN CORPUSCULAR VOLUME 86.4 fl (80.0-96.0); PLATELET COUNT, AUTOMATED 254 10^3/uL (150-450); RED BLOOD COUNT 4.57 10^6/uL (4.00-5.40); WHITE BLOOD COUNT 9.4 10^3/uL (4.0-10.0)
[2018-07-16 10:34] LABS: ALBUMIN 3.4 GM/DL (3.2-5.2); ALKALINE PHOSPHATASE 82 U/L (45-117); ALT/SGPT 20 U/L (12-78); ANION GAP 9 MEQ/L (8-16); AST/SGOT 8 U/L (7-37); BILIRUBIN,TOTAL 0.2 MG/DL (0.2-1.0); BLOOD UREA NITROGEN 8 MG/DL (7-18); CALCIUM LEVEL 8.9 MG/DL (8.5-10.1); CARBON DIOXIDE LEVEL 27 MEQ/L (21-32); CHLORIDE LEVEL 108 MEQ/L (98-107); CREATININE FOR GFR 0.83 MG/DL (0.55-1.30); GLOMERULAR FILTRATION RATE > 60.0 (>60); GLUCOSE, FASTING 103 MG/DL (70-100); POTASSIUM SERUM 3.6 MEQ/L (3.5-5.1); SODIUM LEVEL 144 MEQ/L (136-145); TOTAL PROTEIN 6.8 GM/DL (6.4-8.2)
[2018-07-16 11:33] LABS: ESTIMATED AVERAGE GLUCOSE 114 MG/DL (60-110); HEMOGLOBIN A1c 5.6 %
[2018-07-16] MEDS: busPIRone 5 MG TAB PO (11:57)
[2018-07-16 17:06] LABS: BEDSIDE GLUCOSE 119 MG/DL (70-105)
[2018-07-16] MEDS: PRAMIPEXOLE 1 MG TAB PO (21:33)
[2018-07-16] MEDS: MONTELUKAST 10 MG TAB PO (21:33)
[2018-07-16] MEDS: cloNIDine 0.1 MG TAB PO (21:34)
[2018-07-16] MEDS: FLUTICASONE PROP 0.05% NASAL SPRAY 16 GM (FLONASE) NARES (21:34)
[2018-07-16] MEDS: BELSOMRA PO (21:35)
[2018-07-17 06:36] LABS: BEDSIDE GLUCOSE 88 MG/DL (70-105)
[2018-07-17] MEDS: metFORMIN XR 500MG TAB *GLUCOPHAGE XR PO ×2 (09:36→17:14)
[2018-07-17] MEDS: LORATADINE 10 MG TAB PO (09:36)
[2018-07-17] MEDS: BACLOFEN 10 MG TAB PO ×3 (09:36→21:38)
[2018-07-17] MEDS: busPIRone 10 MG TAB PO ×2 (09:36→21:38)
[2018-07-17] MEDS: VITAMIN D 1,000 INTERNATIONAL UNITS TABLET PO (09:37)
[2018-07-17] MEDS: GABAPENTIN 300 MG CAP PO ×2 (09:37→21:38)
[2018-07-17] MEDS: SERTRALINE 100 MG TAB PO (09:37)
[2018-07-17] MEDS: busPIRone 5 MG TAB PO (11:46)
[2018-07-17] MEDS: hydrOXYzine 50 MG TAB PO (11:47)
[2018-07-17] MEDS: LORazepam 1 MG TAB PO (13:21)
[2018-07-17 17:15] LABS: BEDSIDE GLUCOSE 92 MG/DL (70-105)
[2018-07-17] MEDS: BELSOMRA PO (21:36)
[2018-07-17] MEDS: cloNIDine 0.1 MG TAB PO (21:38)
[2018-07-17] MEDS: PRAMIPEXOLE 1 MG TAB PO (21:38)
[2018-07-17] MEDS: FLUTICASONE PROP 0.05% NASAL SPRAY 16 GM (FLONASE) NARES (21:38)
[2018-07-17] MEDS: MONTELUKAST 10 MG TAB PO (21:38)
[2018-07-18 06:38] LABS: BEDSIDE GLUCOSE 104 MG/DL (70-105)
[2018-07-18] MEDS: GABAPENTIN 300 MG CAP PO ×2 (09:37→21:46)
[2018-07-18] MEDS: metFORMIN XR 500MG TAB *GLUCOPHAGE XR PO ×2 (09:37→17:40)
[2018-07-18] MEDS: BACLOFEN 10 MG TAB PO ×3 (09:37→21:46)
[2018-07-18] MEDS: SERTRALINE 100 MG TAB PO (09:38)
[2018-07-18] MEDS: VITAMIN D 1,000 INTERNATIONAL UNITS TABLET PO (09:38)
[2018-07-18] MEDS: busPIRone 10 MG TAB PO ×2 (09:38→21:46)
[2018-07-18] MEDS: LORATADINE 10 MG TAB PO (09:38)
[2018-07-18] MEDS: busPIRone 5 MG TAB PO (12:30)
[2018-07-18 17:40] LABS: BEDSIDE GLUCOSE 88 MG/DL (70-105)
[2018-07-18] MEDS: hydrOXYzine 50 MG TAB PO (17:40)
[2018-07-18] MEDS: LORazepam 1 MG TAB PO (18:22)
[2018-07-18] MEDS: FLUTICASONE PROP 0.05% NASAL SPRAY 16 GM (FLONASE) NARES (21:44)
[2018-07-18] MEDS: PRAMIPEXOLE 1 MG TAB PO (21:46)
[2018-07-18] MEDS: MONTELUKAST 10 MG TAB PO (21:46)
[2018-07-18] MEDS: cloNIDine 0.1 MG TAB PO (21:46)
[2018-07-18] MEDS: BELSOMRA PO (21:49)
[2018-07-19 06:24] LABS: BEDSIDE GLUCOSE 98 MG/DL (70-105)
[2018-07-19] MEDS: SERTRALINE 100 MG TAB PO (09:02)
[2018-07-19] MEDS: BACLOFEN 10 MG TAB PO ×3 (09:02→21:29)
[2018-07-19] MEDS: busPIRone 10 MG TAB PO ×2 (09:02→21:29)
[2018-07-19] MEDS: GABAPENTIN 300 MG CAP PO ×2 (09:02→21:29)
[2018-07-19] MEDS: LORATADINE 10 MG TAB PO (09:02)
[2018-07-19] MEDS: metFORMIN XR 500MG TAB *GLUCOPHAGE XR PO ×2 (09:02→17:09)
[2018-07-19] MEDS: VITAMIN D 1,000 INTERNATIONAL UNITS TABLET PO (09:02)
[2018-07-19] MEDS: busPIRone 5 MG TAB PO (11:54)
[2018-07-19 17:09] LABS: BEDSIDE GLUCOSE 105 MG/DL (70-105)
[2018-07-19] MEDS: MONTELUKAST 10 MG TAB PO (21:29)
[2018-07-19] MEDS: PRAMIPEXOLE 1 MG TAB PO (21:29)
[2018-07-19] MEDS: cloNIDine 0.1 MG TAB PO (21:30)
[2018-07-19] MEDS: FLUTICASONE PROP 0.05% NASAL SPRAY 16 GM (FLONASE) NARES (21:30)
[2018-07-19] MEDS: LORazepam 1 MG TAB PO (21:33)
[2018-07-19] MEDS: BELSOMRA PO (21:34)
[2018-07-20 06:46] LABS: BEDSIDE GLUCOSE 95 MG/DL (70-105)
[2018-07-20] MEDS: GABAPENTIN 300 MG CAP PO ×2 (08:58→21:40)
[2018-07-20] MEDS: VITAMIN D 1,000 INTERNATIONAL UNITS TABLET PO (08:58)
[2018-07-20] MEDS: busPIRone 10 MG TAB PO ×2 (08:58→21:39)
[2018-07-20] MEDS: LORATADINE 10 MG TAB PO (08:58)
[2018-07-20] MEDS: metFORMIN XR 500MG TAB *GLUCOPHAGE XR PO ×2 (08:58→17:44)
[2018-07-20] MEDS: SERTRALINE 100 MG TAB PO (08:58)
[2018-07-20] MEDS: BACLOFEN 10 MG TAB PO ×3 (08:59→21:40)
[2018-07-20] MEDS: busPIRone 5 MG TAB PO (12:09)
[2018-07-20] MEDS: hydrOXYzine 50 MG TAB PO (15:23)
[2018-07-20 17:30] LABS: BEDSIDE GLUCOSE 77 MG/DL (70-105)
[2018-07-20] MEDS: ACETAMINOPHEN TAB 650MG DOSE (2X325MG) PO (19:32)
[2018-07-20] MEDS: cloNIDine 0.1 MG TAB PO (21:40)
[2018-07-20] MEDS: MONTELUKAST 10 MG TAB PO (21:40)
[2018-07-20] MEDS: FLUTICASONE PROP 0.05% NASAL SPRAY 16 GM (FLONASE) NARES (21:40)
[2018-07-20] MEDS: PRAMIPEXOLE 1 MG TAB PO (21:40)
[2018-07-20] MEDS: BELSOMRA PO (22:30)
[2018-07-21] MEDS: LORazepam 1 MG TAB PO (04:08)
[2018-07-21] MEDS: diphenhydrAMINE 50 MG CAP PO (04:45)
[2018-07-21 06:34] LABS: BEDSIDE GLUCOSE 95 MG/DL (70-105)
[2018-07-21] MEDS: GABAPENTIN 300 MG CAP PO ×2 (11:52→21:26)
[2018-07-21] MEDS: metFORMIN XR 500MG TAB *GLUCOPHAGE XR PO ×2 (11:52→18:14)
[2018-07-21] MEDS: SERTRALINE 100 MG TAB PO (11:53)
[2018-07-21] MEDS: LORATADINE 10 MG TAB PO (11:53)
[2018-07-21] MEDS: BACLOFEN 10 MG TAB PO ×3 (11:53→21:26)
[2018-07-21] MEDS: busPIRone 10 MG TAB PO ×2 (11:54→21:26)
[2018-07-21] MEDS: busPIRone 5 MG TAB PO (12:00)
[2018-07-21] MEDS: VITAMIN D 1,000 INTERNATIONAL UNITS TABLET PO (16:39)
[2018-07-21] MEDS: ACETAMINOPHEN TAB 650MG DOSE (2X325MG) PO (16:40)
[2018-07-21 18:25] LABS: BEDSIDE GLUCOSE 149 MG/DL (70-105)
[2018-07-21 18:25] LABS: BEDSIDE GLUCOSE 63 MG/DL (70-105)
[2018-07-21] MEDS: FLUTICASONE PROP 0.05% NASAL SPRAY 16 GM (FLONASE) NARES (21:26)
[2018-07-21] MEDS: MONTELUKAST 10 MG TAB PO (21:26)
[2018-07-21] MEDS: PRAMIPEXOLE 1 MG TAB PO (21:27)
[2018-07-21] MEDS: BELSOMRA PO (21:27)
[2018-07-21] MEDS: cloNIDine 0.1 MG TAB PO (21:29)
[2018-07-22 06:47] LABS: BEDSIDE GLUCOSE 88 MG/DL (70-105)
[2018-07-22] MEDS: GABAPENTIN 300 MG CAP PO (08:15)
[2018-07-22] MEDS: busPIRone 10 MG TAB PO (08:15)
[2018-07-22] MEDS: VITAMIN D 1,000 INTERNATIONAL UNITS TABLET PO (08:15)
[2018-07-22] MEDS: LORATADINE 10 MG TAB PO (08:16)
[2018-07-22] MEDS: SERTRALINE 100 MG TAB PO (08:16)
[2018-07-22] MEDS: metFORMIN XR 500MG TAB *GLUCOPHAGE XR PO (08:16)
[2018-07-22] MEDS: BACLOFEN 10 MG TAB PO (08:17)
[2018-07-22] MEDS: busPIRone 5 MG TAB PO (12:29)
== END 2018-07-22 12:55 | disposition home or self-care (01) | DRG 755 ==
LOC: M ED INP 07-14 01:27 → M PSY 07-14 03:37 → M ED 20:30 → M PSY 07-14 03:37
DX: F43.10 Post-traumatic stress disorder, unspecified (principal); F33.9 Major depressive disorder, recurrent, unspecified; F60.3 Borderline personality disorder; Z88.8 Allergy status to other drugs, medicaments and biological substances; Z91.013 Allergy to seafood; Z79.899 Other long term (current) drug therapy; E28.2 Polycystic ovarian syndrome; J45.909 Unspecified asthma, uncomplicated; M54.2 Cervicalgia; E83.42 Hypomagnesemia; Z98.1 Arthrodesis status; Z91.5 Personal history of self-harm; E66.3 Overweight; Z68.28 Body mass index [BMI] 28.0-28.9, adult; Z81.8 Family history of other mental and behavioral disorders; Z62.810 Personal history of physical and sexual abuse in childhood